=== PATIENT | female | born 1935 | race Caucasian/White ===

== ENCOUNTER 2017-03-10 00:32 | Observation (INO) | payer OTHER ==
[2017-03-10] VITALS (11 sets, daily range): BP systolic 126–195; BP diastolic 61–92; PULSE 67–98; RESP 16–20; TEMP 97.5–98.2; O2SAT 97–100
[~2017-03-10] VITALS: Ht 167.6 cm; Wt 81.8 kg
[~2017-03-10 00:32] MED LIST: BENA20TA PO; HYDR-2768 PO; LEVO75TA3 PO; MELA1CAP PO; TIMO0.5S29 EACH EYE; VITA200017 PO
--- NOTE | 2017-03-10 00:55 | PD ---
HPI Chief Complaint: Altered Mental Status Time Seen by Provider: 00:41 Travel History International Travel<30 days: No Contact w/Intl Traveler<30days: No Traveled to known affect area: No History of Present Illness HPI This is an 82-year-old female who presents to the emergency department having been brought in by police because she was driving on the wrong side of the road. Patient is unable to give any history. PFSH Past Medical History Arthritis: Yes Blood Disorders: No Depression: Yes Cancer: No Cardiovascular Problems: Yes ("SKIPS BEATS") Diabetes: No Endocrine: Yes Gastrointestinal Disorders: Yes (BURNING TONGUE, LUMPS ON TONGUE) Genitourinary: Yes (INCONTINENCE) Headaches: Yes Hepatitis: No Hiatal Hernia: No Hypertension: Yes Immune Disorder: No Musculoskeletal: Yes (ARTHRITIS) Neurologic: Yes (HEADACHES) Psychiatric: Yes (SOME DEMENTIA) Reproductive: No Respiratory: No Thyroid Disease: Yes Tetanus Vaccination: Unknown ?: Not Menopausal: Yes Past Surgical History AICD: No Appendectomy: Yes Ear Surgery: No Eye Surgery: Yes (LEFT CATARACT EXTRACT.) Genitourinary Surgery: Yes (BLADDER SUSP.) Gynecologic Surgery: Yes (HYSTERECTOMY) Hysterectomy: Yes Joint Replacement: Yes (RIGHT KNEE) Pacemaker: No Tonsillectomy: Yes Other Surgery: Yes Social History Alcohol Use: No Tobacco Use: No Substance Use: No Allergies-Medications (Allergen,Severity, Reaction): Coded Allergies: No Known Allergies (Verified , 10/30/13) Reported Meds & Prescriptions Reported Meds & Active Scripts Active Reported Melatonin 1 Mg Cap 1 Mg PO HS Vitamin D3 (Cholecalciferol) 2,000 Unit Cap 2,000 Unit PO DAILY Timolol Maleate 0.5 % Cris 1 Drop EACH EYE DAILY Hctz (Hydrochlorothiazide) 25 Mg Tab 25 Mg PO DAILY Benazepril Hcl (Benazepril HCl) 20 Mg Tab 20 Mg PO DAILY Levothyroxine Sodium (Generic) (Levothyroxine Sodium) 75 Mcg Tab 75 Mcg PO DAILY Review of Systems ROS Limitations: Poor Historian Physical Exam Narrative GENERAL: Disheveled. SKIN: Focused skin assessment warm and dry. HEAD: Atraumatic. Normocephalic. EYES: Pupils equal and round. No injection or drainage. ENT: Dry mucous membranes. NECK: Trachea midline. CARDIOVASCULAR: Regular rate and rhythm. No murmur appreciated. RESPIRATORY: Clear to auscultation. Breath sounds equal bilaterally. GASTROINTESTINAL: Abdomen soft, non-tender, nondistended. MUSCULOSKELETAL: No obvious deformities. NEUROLOGICAL: Oriented to person but not place or time. Expressive aphasia. No obvious cranial nerve deficits. No upper or lower extremity drift. No upper extremity ataxia. PSYCHIATRIC: Poor insight and judgment. Data Data Last Documented VS Vital Signs Date Time Temp Pulse Resp B/P Pulse Ox O2 Delivery O2 Flow Rate FiO2 03/10/17 00:38 98.0 67 16 171/81 Orders Electrocardiogram (03/10/17 00:53) Complete Blood Count With Diff (03/10/17 00:53) Comprehensive Metabolic Panel (03/10/17 00:53) Troponin I (03/10/17 00:53) Urinalysis - C+S If Indicated (03/10/17 00:53) Ct Brain W/O Iv Contrast(Rout) (03/10/17 00:53) Blood Glucose (03/10/17 00:53) Ecg Monitoring (03/10/17 00:53) Iv Access Insert/Monitor (03/10/17 00:53) Oximetry (03/10/17 00:53) Sodium Chloride 0.9% Flush (Ns Flush) (03/10/17 01:00) Drug Screen, Random Urine (03/10/17 00:53) Alcohol (Ethanol) (03/10/17 00:53) Cath For Specimen (03/10/17 00:53) Sodium Chlor 0.9% 1000 Ml Inj (Ns 1000 M (03/10/17 01:00) Urine Culture (03/10/17 00:52) Ceftriaxone Inj (Rocephin Inj) (03/10/17 02:00) Admit Order (Ed Use Only) (03/10/17 02:52) Labs Laboratory Tests Test 03/10/17 03/10/17 00:52 00:58 Urine Color YELLOW Urine Turbidity HAZY Urine pH 6.0 Urine Specific [place] 1.031 Urine Protein 30 mg/dL Urine Glucose (UA) NEG mg/dL Urine Ketones NEG mg/dL Urine Occult Blood TRACE Urine Nitrite POS Urine Bilirubin NEG Urine Urobilinogen 2.0 MG/DL Urine Leukocyte Esterase LARGE Urine RBC 5 /hpf Urine WBC 21 /hpf Urine Bacteria MANY /hpf Urine Hyaline Casts 1 /lpf Urine Mucus FEW /lpf Urine Yeast (Budding) RARE Microscopic Urinalysis Comment CATH-CULTURE IND White Blood Count 7.8 TH/MM3 Red Blood Count 4.50 MIL/MM3 Hemoglobin 12.9 GM/DL Hematocrit 39.2 % Mean Corpuscular Volume 87.1 FL Mean Corpuscular Hemoglobin 28.8 PG Mean Corpuscular Hemoglobin 33.0 % Concent Red Cell Distribution Width 14.8 % Platelet Count 217 TH/MM3 Mean Platelet Volume 9.9 FL Neutrophils (%) (Auto) 62.1 % Lymphocytes (%) (Auto) 23.8 % Monocytes (%) (Auto) 9.4 % Eosinophils (%) (Auto) 4.6 % Basophils (%) (Auto) 0.1 % Neutrophils # (Auto) 4.8 TH/MM3 Lymphocytes # (Auto) 1.8 TH/MM3 Monocytes # (Auto) 0.7 TH/MM3 Eosinophils # (Auto) 0.4 TH/MM3 Basophils # (Auto) 0.0 TH/MM3 CBC Comment DIFF FINAL Differential Comment Sodium Level 142 MEQ/L Potassium Level 4.0 MEQ/L Chloride Level 113 MEQ/L Carbon Dioxide Level 20.7 MEQ/L Anion Gap 8 MEQ/L Blood Urea Nitrogen 23 MG/DL Creatinine 0.89 MG/DL Estimat Glomerular Filtration 61 ML/MIN Rate Random Glucose 95 MG/DL Calcium Level 8.4 MG/DL Total Bilirubin 0.3 MG/DL Aspartate Amino Transf 26 U/L (AST/SGOT) Alanine Aminotransferase 14 U/L (ALT/SGPT) Alkaline Phosphatase 103 U/L Troponin I LESS THAN 0.02 NG/ML Total Protein 7.2 GM/DL Albumin 3.1 GM/DL Ethyl Alcohol Level LESS THAN 3 MG/DL MDM Medical Decision Making Medical Screen Exam Complete: Yes Emergency Medical Condition: Yes Interpretation(s) Afebrile, no tachycardia, hypertensive No leukocytosis Electrolytes are reassuring Troponin is normal Urinalysis demonstrates infection Alcohol is negative Last [address] 03/10/17 0053 Signed Impressions: Service Date/Time: Friday, March 10, 2017 01:59 - CONCLUSION: 1. Atrophy and chronic appearing white matter disease. Primo Mclaughlin MD Differential Diagnosis Ischemic stroke, hemorrhagic stroke, tumor, dementia, urinary tract infection Narrative Course This is an 82-year-old female is brought in by police because she was driving on the wrong side of the road. History is very limited and the patient is unable to tell much about her self. On exam she has some expressive aphasia. Labs are obtained which are reassuring. CT of the head was negative for acute process. Urinalysis demonstrates urinary tract infection. Patient was placed on ceftriaxone and will be observed in the setting of altered mental status. Diagnosis Primary Impression: Urinary tract infection Qualified Code: N30.00 - Acute cystitis without hematuria Admitting Information Admitting Physician Requests: Observation Nikki Sheikh MD Mar 10, 2017 00:55
[2017-03-10] MEDS ORDERED: SODIUM CHLORIDE 0.9% FLUSH 5 ML FLUSH IV FLUSH PRN (01:00)
[2017-03-10] MEDS ORDERED: SODIUM CHLOR 0.9% 1000 ML INJ 1,000 ML IV SCH (01:00)
[2017-03-10 01:20] LABS: AUTOMATED NEUTROPHIL # 4.8 TH/MM3 (1.8-7.7); BASOPHIL % 0.1 % (0.0-2.0); EOSINOPHIL # 0.4 TH/MM3 (0-0.4); EOSINOPHIL % 4.6 % (0.0-4.0); HEMATOCRIT 39.2 % (35.0-46.0); HEMO FLAGS DIFF FINAL; LYMPH % 23.8 % (9.0-44.0); LYMPHOCYTE # 1.8 TH/MM3 (1.0-4.8); MEAN CELL VOLUME 87.1 FL (80.0-100.0); MEAN CORPUSCULAR HEMOGLOBIN 28.8 PG (27.0-34.0); MONO % 9.4 % (0.0-8.0); NEUT % 62.1 % (16.0-70.0); PLATELET COUNT 217 TH/MM3 (150-450); RED CELL DISTRIBUTION WIDTH 14.8 % (11.6-17.2); WHITE BLOOD COUNT 7.8 TH/MM3 (4.0-11.0)
[2017-03-10 01:26] LABS: BACTERIA, URINE MANY /hpf; BLOOD, URINE TRACE (NEG); GLUCOSE,URINE NEG (NEG); HYALINE CAST, URINE 1 /lpf (RARE); KETONE, URINE NEG (NEG); MUCUS URINE FEW /lpf (OCC); URINE COLOR YELLOW (YELLW/STRAW)
[2017-03-10 01:30] LABS: COMMENT (UR) CATH-CULTURE IND; CULTURE IF INDICATED CATH CULTURE IND; NITRITE,URINE POS (NEG)
[2017-03-10 01:36] LABS: ALKALINE PHOSPHATASE 103 U/L (45-117); TOTAL BILIRUBIN ADULT 0.3 MG/DL (0.2-1.0)
[2017-03-10 01:39] LABS: ALT (GPT) 14 U/L (10-53); ANION GAP 8 MEQ/L (5-15); AST (GOT) 26 U/L (15-37); BICARBONATE 20.7 MEQ/L (21.0-32.0); BLOOD UREA NITROGEN 23 MG/DL (7-18); CHLORIDE 113 MEQ/L (98-107); GLOMERULAR FILTRATION RATE 61 ML/MIN (>89); SODIUM (NA) 142 MEQ/L (136-145)
[2017-03-10] MEDS ORDERED: cefTRIAXone INJ 1,000 MG in SODIUM CHLORIDE 0.9% INJ 100 ML IV ONE (02:00)
--- NOTE | 2017-03-10 02:16 | RADRPT ---
EXAM DATE/TIME: 03/10/2017 01:59 [facility] COMPARISON: No previous studies available for comparison. INDICATIONS : Altered mental status. RADIATION DOSE: 56.35 CTDIvol (mGy) MEDICAL HISTORY : Hypertension. SURGICAL HISTORY : None. ENCOUNTER: Initial ACUITY: 1 day PAIN SCALE: 0/10 LOCATION: cranial TECHNIQUE: Multiple contiguous axial images were obtained of the head. Using automated exposure control and adj ustment of the mA and/or kV according to patient size, radiation dose was kept as low as reasonably a chievable to obtain optimal diagnostic quality images. DICOM format image data is available electro nically for review and comparison. FINDINGS: Moderate atrophy is identified and patchy periventricular white matter disease is noted most likely o n the basis of chronic microvascular ischemic disease. There is no evidence of intracranial hemorrhag e, acute infarct, or mass. No fractures are seen. CONCLUSION: 1. Atrophy and chronic appearing white matter disease. Primo Mclaughlin MD on March 10, 2017 at 2:14 Board Certified Radiologist. This report was verified electronically.
[2017-03-10] MEDS ORDERED: NALOXONE HCL 0.4 MG/ML AMP IV PRN (03:15)
[2017-03-10] MEDS ORDERED: SODIUM CHLORIDE 0.9% FLUSH 10 ML FLUSH IV FLUSH PRN (03:15)
--- NOTE | 2017-03-10 03:30 | HHI.HP ---
[facility] Service [facility] Primary Care Physician Non-Staff Admission Diagnosis altered mental status, urinary tract infection Diagnoses: Travel History International Travel<30 Days: No Contact w/Intl Traveler <30 Da: No Traveled to Known Affected Are: No History of Present Illness History from patient, ER physician, medication, and fifth medical records. Patient is extremely poor historian. She does have significant expressive aphasia. She is really unable to tell me why she is here. However when asked whether she had a fall, she stated yes. When asked what time or date that happens, she really does not know. She was initially seen 5 days ago. Later changed to 1 or 2 days ago. When asked about her birthday, she is not able to recall her date. She is not able to recall the city she is living in. She cannot tell the name of her doctor or her daughter. Review of Systems ROS Limitations: Speech Impaired, Poor Historian (not able to obtain ROS properly at all, expressive aphasia and some memory impairment) Past Family Social History Past Medical History Hypothyroidism Hyperlipidemia Past Surgical History larygoscopy biopsy of lesion of tongue- 2013 Hysterectomy Carpal tunnel surgeryon the left Allergies: Coded Allergies: No Known Allergies (Verified , 10/30/13) Family History father- alcoholic, at age 32 of heart problem Social History used to smoke, quit since 1991 Physical Exam Vital Signs Vital Signs Date Time Temp Pulse Resp B/P Pulse Ox O2 Delivery O2 Flow Rate FiO2 03/10/17 03:08 69 16 148/77 100 03/10/17 00:38 98.0 67 16 171/81 Physical Exam GENERAL: This is a well-nourished, well-developed patient, in no apparent distress. SKIN: No rashes, ecchymoses or lesions. Cool and dry. HEAD: Atraumatic. Normocephalic. No temporal or scalp tenderness. EYES:No scleral icterus. No injection or drainage. ENT: Nose without bleeding, purulent drainage or septal hematoma. Airway patent. NECK: Trachea midline. No JVD . Supple, nontender, no meningeal signs. CARDIOVASCULAR: Regular rate and rhythm without murmurs, gallops, or rubs. RESPIRATORY: Clear to auscultation. Breath sounds equal bilaterally. No wheezes , rales, or rhonchi. GASTROINTESTINAL: Abdomen soft, non-tender, nondistended. No guarding. MUSCULOSKELETAL: Extremities without clubbing, cyanosis. No joint tenderness, effusion No calf tenderness. bilateral LE mild pitting edema around the ankles NEUROLOGICAL: Awake and alert. Motor and sensory grossly within normal limits. Five out of 5 muscle strength in all muscle groups. expressive aphasia Laboratory Laboratory Tests Test 03/10/17 03/10/17 00:52 00:58 Urine Color YELLOW Urine Turbidity HAZY Urine pH 6.0 Urine Specific [place] 1.031 Urine Protein 30 Urine Glucose (UA) NEG Urine Ketones NEG Urine Occult Blood TRACE Urine Nitrite POS Urine Bilirubin NEG Urine Urobilinogen 2.0 Urine Leukocyte Esterase LARGE Urine RBC 5 Urine WBC 21 Urine Bacteria MANY Urine Hyaline Casts 1 Urine Mucus FEW Urine Yeast (Budding) RARE Microscopic Urinalysis Comment CATH-CULTURE IND White Blood Count 7.8 Red Blood Count 4.50 Hemoglobin 12.9 Hematocrit 39.2 Mean Corpuscular Volume 87.1 Mean Corpuscular Hemoglobin 28.8 Mean Corpuscular Hemoglobin 33.0 Concent Red Cell Distribution Width 14.8 Platelet Count 217 Mean Platelet Volume 9.9 Neutrophils (%) (Auto) 62.1 Lymphocytes (%) (Auto) 23.8 Monocytes (%) (Auto) 9.4 Eosinophils (%) (Auto) 4.6 Basophils (%) (Auto) 0.1 Neutrophils # (Auto) 4.8 Lymphocytes # (Auto) 1.8 Monocytes # (Auto) 0.7 Eosinophils # (Auto) 0.4 Basophils # (Auto) 0.0 CBC Comment DIFF FINAL Differential Comment Sodium Level 142 Potassium Level 4.0 Chloride Level 113 Carbon Dioxide Level 20.7 Anion Gap 8 Blood Urea Nitrogen 23 Creatinine 0.89 Estimat Glomerular Filtration 61 Rate Random Glucose 95 Calcium Level 8.4 Total Bilirubin 0.3 Aspartate Amino Transf 26 (AST/SGOT) Alanine Aminotransferase 14 (ALT/SGPT) Alkaline Phosphatase 103 Troponin I LESS THAN 0.02 Total Protein 7.2 Albumin 3.1 Ethyl Alcohol Level LESS THAN 3 Date/Time Procedure Status Source Growth 03/10/17 00:52 Urine Culture Received Urine Catheterized Urine Pending Result Diagram: 03/10/175703/10/17 005 Imaging Last [address] 03/10/17 0053 Signed Impressions: Service Date/Time: Friday, March 10, 2017 01:59 - CONCLUSION: 1. Atrophy and chronic appearing white matter disease. Primo Mclaughlin MD Assessment and Plan Assessment and Plan Impression: Expressive aphasia Likely CVA UTI Plan: Neurochecks every 4 hours. Permissive hypertension. We'll proceed with CVA workup. Neurology consult. Speech and swallow evaluation. Physical therapy consult. Obtains echocardiograms/carotids sono. MRI/MRA of the brain. We'll also needs to contact patient's daughter to give full history. Resume Rocephin for UTI. DVT prophylaxiswith Lovenox. Discussed Condition With Patient, ER physician, nursing staff Reji Sam MD Mar 10, 2017 03:29
[2017-03-10] MEDS ORDERED: FLUCONAZOLE 100 MG TAB PO ONE (07:15)
[2017-03-10] MEDS ORDERED: PILL SPLITTER OTHER PRN (07:30)
[2017-03-10] MEDS: SODIUM CHLORIDE 0.9% FLUSH 10 ML FLUSH IV FLUSH SCH ×2 (07:50→21:48)
[2017-03-10] MEDS ORDERED: ACETAMINOPHEN 325 MG TAB PO PRN (08:15)
--- NOTE | 2017-03-10 08:15 | HHI.PR ---
Subjective Remarks Follow-up for altered mental status. Awake and alert. Follows commands. The patient does not know the month, year, her birthday. She does know that she is in the hospital. She provides short answers, but speech seems clear. She does not recall how she presented to the hospital. When asked if she has any pain she says in her knees. She does appear to have a soft knee brace on. She doesn 't really participate with lower extremity strength testing due to pain in her knee. She denies any dysuria. She denies any fevers. She denies having any stroke before. Discussed with RN, we have been unable to get in contact with the patient's next of kin listed in the chart. Objective Vitals Vital Signs Date Time Temp Pulse Resp B/P Pulse Ox O2 Delivery O2 Flow Rate FiO2 03/10/17 06:06 97.8 74 18 179/90 97 03/10/17 04:12 97.9 85 16 148/77 99 03/10/17 03:08 69 16 148/77 100 03/10/17 00:38 98.0 67 16 171/81 Result Diagram: 03/10/17 0058 03/10/17 0058 Imaging Last Impressions Head CT 03/10/17 0053 Signed Impressions: Service Date/Time: Friday, March 10, 2017 01:59 - CONCLUSION: 1. Atrophy and chronic appearing white matter disease. Primo Mclaughlin MD Objective Remarks GENERAL: Well-developed well-nourished. In no acute distress. Oriented to place and her name, but not to time or her birthday. SKIN: Warm and dry. No lesions noted. HEENT: Normocephalic. Pupils equal and round. Mucous membranes pink and moist. CARDIOVASCULAR: Regular rate and rhythm. No murmur appreciated. RESPIRATORY: No accessory muscle use. Clear to auscultation. Breath sounds equal bilaterally. GASTROINTESTINAL: Abdomen soft, non-tender, nondistended. Bowel sounds x4. MUSCULOSKELETAL: Flex the bilateral knees with soft knee brace on the right. No clubbing or cyanosis. No edema. NEUROLOGICAL: Awake and alert. Follows commands. No facial asymmetry. Moves upper and lower extremities spontaneously. Normal speech. Strength 5/5 in upper extremities. PSYCHIATRIC: Confused mood and affect; insight and judgment limited. A/P Assessment and Plan 82-year-old female who was brought in for altered mental status when found to be driving on the wrong side of the road by police Acute encephalopathy: Suspect metabolic. UTI and stroke are in the differential. Reviewed: UA with evidence of UTI. Head CT with atrophy and chronic-appearing white matter disease, nothing acute. Afebrile with no leukocytosis. -Neurology consulted -PT/ST -CVA workup with brain MRI/MRA, carotid ultrasound, echocardiogram -Monitor on telemetry -Neuro checks -Check TSH -Check UDS UTI: Bacterial versus fungal. Continue on empiric Rocephin. Fluconazole 1. Follow-up urine culture. Possible new onset atrial fibrillation: EKG at admission shows possible atrial fibrillation versus PACs. Telemetry is vague and shows no definite tachyarrhythmia. History is unclear. -Repeat EKG. -Discussed with neurology, may need anticoagulation. Reconcile and resume home medications. DVT prophylaxis: SCDs Discharge Planning Disposition pending clinical course. Juan Pablo Boudreaux Mar 10, 2017 08:15
[2017-03-10 08:22] LABS: AMPHETAMINE, URINE NEG (NEG); BARBITURATES, URINE NEG (NEG); COCAINE, URINE NEG (NEG)
[2017-03-10] MEDS ORDERED: ASPIRIN EC 325 MG TABEC PO SCH (10:15)
--- NOTE | 2017-03-10 10:43 | MB ---
cc: YOU CONNOLLY M.D. DATE OF CONSULTATION 03/10/2017 REASON FOR CONSULTATION This is an 82 year-old right-handed woman I am asked to see for a neurological evaluation. She is not a very good historian. She was brought in by the police because she was driving on the wrong side of the road, unable to give a good history. There is some history of dementia. MEDICATIONS AT HOME 1. Melatonin 2. Vitamin D 3. Timolol 4. Hydrochlorothiazide 5. Benazepril 6. Thyroid ALLERGIES NO KNOWN DRUG ALLERGIES. REVIEW OF SYSTEMS She has been complaining of some bilateral lower extremity pain. PAST MEDICAL HISTORY 1. Hypothyroidism 2. Hyperlipidemia 3. Biopsied of the tongue 2013. FAMILY HISTORY Father was an alcoholic and had heart problems. SOCIAL HISTORY He used to smoke, quit in 1991. She is not a drinker. She can not tell me who she lives with. PHYSICAL EXAM On exam, nurse tells me she has a possible a. Flutter on the telemetry, but no strips on the chart, afebrile, 68, 29, 183/79. NECK: There are no carotid bruits. HEART: Regular rhythm. I did not detect a murmur. NEUROLOGIC: Pupils are equal. Visual arce are full. Extraocular movements intact without nystagmus. Face is symmetric. Tongue was midline. No drift. Normal strength in the upper and lower extremities bilaterally. Toes are downgoing bilaterally. Pinprick was intact throughout as was vibratory sense. She is not ataxic. Gait is a little bit unsteady. Her legs hurt her She cannot name my glasses. She cannot tell me who she lives with. She follows commands fairly well. Speech was fluent overall. LABORATORY DATA CBC is normal. Urine drug screen was negative. UA 21 white cells, large amount of leukoesterase. Basic metabolic profile is essentially normal. LFTs normal. CT scan of the brain was read as negative. Review of the films, diffuse atrophy is noted. IMPRESSION It is unclear if she could have had a stroke or has dementia. PLAN We will check an MRI of the brain and if she has any flutter, she can be anticoagulated. Check an EEG and some other blood work. We should treat her UTI. She does have some pain in the legs that can be looked into later. MD GLORY Puente/[place] /10:13 AM /10:32 AM
[2017-03-10] MEDS ORDERED: LORazepam 1 MG TAB PO ONE (11:45)
[2017-03-10] MEDS ORDERED: HALOPERIDOL LACTATE 5 MG/ML AMP IM ONE (12:15)
--- NOTE | 2017-03-10 14:13 | RADRPT ---
EXAM DATE/TIME: 03/10/2017 13:47 [facility] COMPARISON: No previous studies available for comparison. INDICATIONS : MRI clearance. MEDICAL HISTORY : None. SURGICAL HISTORY : None. ENCOUNTER: Initial ACUITY: 1 day PAIN SCORE: 0/10 LOCATION: Bilateral chest FINDINGS: The lungs are clear without infiltrate, nodule, or mass. There is no appreciable pleural effusion fo r technique. Heart and mediastinum are unremarkable. Chronic degenerative changes are present in jo-ann ateral shoulders and not changed. CONCLUSION: No acute cardiopulmonary disease. Jessica Huang MD on March 10, 2017 at 14:11 Board Certified Radiologist. This report was verified electronically.
--- NOTE | 2017-03-10 15:46 | RADRPT ---
EXAM DATE/TIME: 03/10/2017 14:52 [facility] COMPARISON: No previous studies available for comparison. INDICATIONS : Cerebrovascular accident. MEDICAL HISTORY : Hypertension. Glaucoma. SURGICAL HISTORY : Tonsillectomy. Hysterectomy. Appendectomy. Right knee arthroscopy. Bladder suspension. ENCOUNTER: Initial ACUITY: 1 day PAIN SCORE: Nonresponsive. LOCATION: Bilateral neck PEAK SYSTOLIC VELOCITIES (cm/sec): ICA/CCA RATIO: Right: 1.9 Left: 1.1 ICA: Right: 114 Left: 81 CCA: Right: 61 Left: 70 ECA: Right: 34 Left: 39 VERTEBRAL: Right: 54 antegrade Left: 44 antegrade Elevated flow velocities and ICA/CCA ratios have been found to correlate with increased degrees of vessel stenosis, calculated as percentage of diameter relative to a normal segment of distal ICA/CCA FINDINGS: Antegrade flow is seen in both vertebral arteries. There is minimal atherosclerotic plaquing at the o rigin of both ICAs without any significant stenosis. CONCLUSION: No evidence for hemodynamically significant stenosis. Jessica Huang MD on March 10, 2017 at 15:44 Board Certified Radiologist. This report was verified electronically.
--- NOTE | 2017-03-10 17:23 | RADRPT ---
EXAM DATE/TIME: 03/10/2017 16:30 [facility] COMPARISON: MRI BRAIN W/O CONTRAST, March 10, 2017, 16:30. INDICATIONS : CVA. MEDICAL HISTORY : Arthritis. SURGICAL HISTORY : Hysterectomy. Cataracts. Right knee. ENCOUNTER: Subsequent ACUITY: 1 day PAIN SCORE: 0/10 LOCATION: Please note a normal MRA of the brain does not entirely exclude the possibility of a small aneurysm, nor the possibility of distal intracranial vessel disease. TECHNIQUE: 3D time of flight MRA was performed. Source images, multiplanar STS MIP, and 3D volume MIP reconstru ctions were reviewed. FINDINGS: No significant vascular malformations, vessel truncation or aneurysmal dilatations are seen except fo r slight atherosclerotic changes involving multiple branches bilaterally mainly the MCAs. CONCLUSION: Slight atherosclerotic changes of distal branches bilaterally, otherwise unremarkable . Jessica Huang MD on March 10, 2017 at 17:19 Board Certified Radiologist. This report was verified electronically.
--- NOTE | 2017-03-10 17:26 | RADRPT ---
EXAM DATE/TIME: 03/10/2017 16:30 [facility] COMPARISON: CT BRAIN W/O CONTRAST, March 10, 2017, 1:59. INDICATIONS : CVA. MEDICAL HISTORY : Arthritis. SURGICAL HISTORY : Hysterectomy. Cataracts. Right knee. ENCOUNTER: Subsequent ACUITY: 1 day PAIN SCORE: 0/10 LOCATION: TECHNIQUE: Multiplanar, multisequence MRI of the brain was performed without contrast. FINDINGS: CEREBRUM: Atrophy. Small focal area of encephalomalacia involving the right parietal lobe. The ventricles are n ormal for age. No evidence of midline shift, mass lesion, hemorrhage or acute infarction. No extraa xial fluid collections are seen. The pituitary gland and suprasellar cistern are normal in configura tion. WHITE MATTER: Periventricular high flair signal involving both cerebral hemispheres. POSTERIOR FOSSA: The cerebellum and brainstem are intact. The 4th ventricle is midline. The cerebellopontine angle is unremarkable. The cerebellar tonsils are normal in position. DIFFUSION IMAGING: No focal areas of restricted diffusion are seen. No evidence of acute infarction. EXTRACRANIAL: The visualized portions of the orbits and paranasal sinuses are unremarkable. CONCLUSION: 1. No acute intracranial abnormality. 2. Chronic small vessel ischemic change. 3. Small area of encephalomalacia involving the right parietal lobe. Rivera Corcoran Jr., MD on March 10, 2017 at 17:21 Board Certified Radiologist. This report was verified electronically.
[2017-03-10 20:42] LABS: FREE T4 0.93 NG/DL (0.76-1.46); HDL CHOLESTEROL 75.5 MG/DL (40.0-60.0); LDL CHOLESTEROL 88 MG/DL (0-99)
[2017-03-10 20:44] LABS: CREATINE KINASE 143 U/L (26-192)
[2017-03-10 21:36] LABS: RHEUMATOID FACTOR TRIGGER LESS THAN 10.0 IU/ML (0.0-14.9)
[2017-03-10] MEDS: APIXABAN 5 MG TABLET PO SCH (21:48)
[2017-03-11] VITALS (10 sets, daily range): BP systolic 154–194; BP diastolic 78–97; PULSE 68–100; RESP 16–18; TEMP 96.4–98.1; O2SAT 97–99
[2017-03-11] MEDS: cefTRIAXone INJ 1,000 MG in SODIUM CHLORIDE 0.9% INJ 100 ML IV SCH (01:38)
[2017-03-11 08:10] LABS: AUTOMATED NEUTROPHIL # 4.1 TH/MM3 (1.8-7.7); BASOPHIL % 0.8 % (0.0-2.0); EOSINOPHIL # 0.2 TH/MM3 (0-0.4); EOSINOPHIL % 3.9 % (0.0-4.0); HEMATOCRIT 44.2 % (35.0-46.0); HEMO FLAGS DIFF FINAL; LYMPH % 20.8 % (9.0-44.0); LYMPHOCYTE # 1.3 TH/MM3 (1.0-4.8); MEAN CELL VOLUME 86.3 FL (80.0-100.0); MEAN CORPUSCULAR HGB CONC 33.6 % (32.0-36.0); MONO % 9.2 % (0.0-8.0); NEUT % 65.3 % (16.0-70.0); PLATELET COUNT 199 TH/MM3 (150-450); RED BLOOD COUNT 5.12 MIL/MM3 (4.00-5.30); RED CELL DISTRIBUTION WIDTH 14.8 % (11.6-17.2); WHITE BLOOD COUNT 6.2 TH/MM3 (4.0-11.0)
[2017-03-11] MEDS: APIXABAN 5 MG TABLET PO SCH ×2 (08:19→21:30)
[2017-03-11] MEDS: SODIUM CHLORIDE 0.9% FLUSH 10 ML FLUSH IV FLUSH SCH ×2 (08:19→21:30)
[2017-03-11 08:27] LABS: BICARBONATE 25.8 MEQ/L (21.0-32.0); POTASSIUM 3.4 MEQ/L (3.5-5.1)
[2017-03-11] MEDS ORDERED: POTASSIUM CHLORIDE 10 MEQ CONTROLLED RELEASE TAB PO ONE (08:45)
--- NOTE | 2017-03-11 09:36 | HHI.PR ---
Subjective Remarks afib Objective Vital Signs Date Time Temp Pulse Resp B/P Pulse Ox O2 Delivery O2 Flow Rate FiO2 03/11/17 07:30 97.4 68 18 194/97 99 03/11/17 07:01 84 03/11/17 04:18 98.1 93 18 170/84 97 03/11/17 04:04 82 03/11/17 00:15 92 03/10/17 23:35 98 03/10/17 23:24 98.0 77 17 126/61 97 03/10/17 20:00 98.2 76 18 137/79 97 03/10/17 18:36 76 03/10/17 16:13 97.5 83 19 195/92 98 I/O 03/10/17 03/10/17 03/10/17 03/11/17 03/11/17 03/11/17 07:00 15:00 23:00 07:00 15:00 23:00 Intake Total 580 ml Balance 580 ml Intake Oral 480 ml IV Total 100 ml # Voids 5 5 # Bowel Movements 1 1 Result Diagram: 03/11/17 0700 03/11/17 0700 Objective Remarks some bp up knows [place] not town moves all r knee tender Assessment and Plan Assessment and Plan imp mri 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 Rogerio Crow MD Mar 11, 2017 09:36
[2017-03-11] MEDS ORDERED: cloNIDine HCL 0.1 MG TAB PO PRN (10:00)
--- NOTE | 2017-03-11 10:04 | HHI.PR ---
Subjective Remarks Follow-up for altered mental status. The patient has some pain in her right knee, but states that it has been there for a while. She has no other acute complaints at this time. She is awake and alert, but is a poor historian. She is not able to tell me about any of her medical conditions, any of her home medications, who her PCP is, what city she lives in, who she lives with. She was agitated yesterday and tried to leave the hospital, and had to be placed in restraints. Discussed with RN, patient much more calm overnight and today and has been taken out of restraints. Objective Vitals Vital Signs Date Time Temp Pulse Resp B/P Pulse Ox O2 Delivery O2 Flow Rate FiO2 03/11/17 07:30 97.4 68 18 194/97 99 03/11/17 07:01 84 03/11/17 04:18 98.1 93 18 170/84 97 03/11/17 04:04 82 03/11/17 00:15 92 03/10/17 23:35 98 03/10/17 23:24 98.0 77 17 126/61 97 03/10/17 20:00 98.2 76 18 137/79 97 03/10/17 18:36 76 03/10/17 16:13 97.5 83 19 195/92 98 I/O 03/10/17 03/10/17 03/10/17 03/11/17 03/11/17 03/11/17 07:00 15:00 23:00 07:00 15:00 23:00 Intake Total 580 ml Balance 580 ml Intake Oral 480 ml IV Total 100 ml # Voids 5 5 # Bowel Movements 1 1 Result Diagram: 03/11/17 0700 03/11/17 0700 Imaging Last Impressions Brain MRI 03/10/17 1058 Signed Impressions: Service Date/Time: Friday, March 10, 2017 16:30 - CONCLUSION: 1. No acute intracranial abnormality. 2. Chronic small vessel ischemic change. 3. Small area of encephalomalacia involving the right parietal lobe. Rivera Corcoran Jr., MD Head CT 03/10/17 0053 Signed Impressions: Service Date/Time: Friday, March 10, 2017 01:59 - CONCLUSION: 1. Atrophy and chronic appearing white matter disease. Primo Mclaughlin MD Head Magnetic Resonance Angiography 03/10/17 0000 Signed Impressions: Service Date/Time: Friday, March 10, 2017 16:30 - CONCLUSION: Slight atherosclerotic changes of distal branches bilaterally, otherwise unremarkable. Jessica Huang MD Chest X-Ray 03/10/17 0000 Signed Impressions: Service Date/Time: Friday, March 10, 2017 13:47 - CONCLUSION: No acute cardiopulmonary disease. Jessica Huang MD Carotid Artery Ultrasound 03/10/17 0000 Signed Impressions: Service Date/Time: Friday, March 10, 2017 14:52 - CONCLUSION: No evidence for hemodynamically significant stenosis. Jessica Huang MD Objective Remarks GENERAL: Well-developed well-nourished. In no acute distress. Disoriented. SKIN: Warm and dry. No lesions noted. HEENT: Normocephalic. Pupils equal and round. Mucous membranes pink and moist. CARDIOVASCULAR: Regular rate and rhythm. No murmur appreciated. RESPIRATORY: No accessory muscle use. Clear to auscultation. Breath sounds equal bilaterally. GASTROINTESTINAL: Abdomen soft, non-tender, nondistended. Bowel sounds x4. MUSCULOSKELETAL: Trace pretibial edema on the right, none on the left. Painful ROM right knee. No clubbing or cyanosis. NEUROLOGICAL: Awake and alert. Follows commands. Moves upper and lower extremities spontaneously. Normal speech. PSYCHIATRIC: Pleasantly confused mood and affect; insight and judgment limited. A/P Assessment and Plan 82-year-old female who was brought in for altered mental status when found to be driving on the wrong side of the road by police Acute metabolic encephalopathy: Possibly due to underlying dementia with acute infection. Reviewed: UA with evidence of UTI. Afebrile with no leukocytosis. Brain MRI with chronic changes, encephalomalacia, no acute process. Head MRA with slight atherosclerotic changes. Carotid ultrasound with no significant stenosis. UDS negative. -Neurology consulted, appreciate input -PT/ST -Check EEG and echocardiogram -Monitor on telemetry -Neuro checks UTI: Bacterial versus fungal. Continue on empiric Rocephin. Fluconazole 1. Follow-up urine culture. New onset atrial fibrillation: EKGs and telemetry show A. fib. Rate seems controlled. D/W neurology, started Eliquis. Suspect underlying dementia: Patient is pleasantly confused and disoriented. Possible underlying Alzheimer's disease per neurology, started on Namenda. Cognitive eval. Possible acute worsening with UTI. Consider starting Seroquel at night if further episodes of agitation. Hypertension: s/p permissive HTN, CVA ruled out. Start Metoprolol with A. fib. Clonidine as needed. Monitor and adjust medications as needed. Subclinical hypothyroidism: TSH is slightly elevated with normal T4. Possibly due to patient missing levothyroxine dose at home. Reconcile and resume home levothyroxine dose. Repeat Labs in 4-6 Weeks. Right knee pain: Likely chronic as patient presented with soft knee brace. Checking x-ray. Reconcile and resume home medications. DVT prophylaxis: SCDs Discharge Planning Follow-up EEG and urine culture. Will likely need placement for safety, case management consulted. Juan Pablo Boudreaux Mar 11, 2017 10:04
--- NOTE | 2017-03-11 10:51 | RADRPT ---
EXAM DATE/TIME: 03/11/2017 10:22 [facility] COMPARISON: No previous studies available for comparison. INDICATIONS : Right knee pain with no known injury MEDICAL HISTORY : None. SURGICAL HISTORY : Total knee replacement, right. ENCOUNTER: Initial ACUITY: 1 day PAIN SCORE: 5/10 LOCATION: Right entire knee FINDINGS: Right knee prosthesis is noted. There is soft tissue swelling along the medial aspect of the knee. Knee replacement as well as underlying bony structures are intact without evidence of fracture or dis location. CONCLUSION: Status post right knee replacement. Soft tissue swelling along the medial aspect of the knee. Intact knee replacement and bony structures. Bg Rivera MD on March 11, 2017 at 10:49 Board Certified Radiologist. This report was verified electronically.
--- NOTE | 2017-03-11 10:55 | EKG ---
Date Performed: 03/10/2017 Time Performed: 01:12:08 PTAGE: 82 years EKG: ATRIAL FIBRILLATION POSSIBLE RIGHT VENTRICULAR CONDUCTION DELAY ABNORMAL RHYTHM ECG PREVIOUS TRACING : 10/30/2013 07.29 DOCTOR: Malachi King Interpretating Date/Time 03/11/2017 10:52:23
--- NOTE | 2017-03-11 12:46 | EKG ---
Date Performed: 03/10/2017 Time Performed: 14:32:37 PTAGE: 82 years EKG: ATRIAL FIBRILLATION INCOMPLETE RIGHT BUNDLE BRANCH BLOCK MINIMAL ST DEPRESSION Compared to prior tracing no significant change ABNORMAL RHYTHM ECG NO PREVIOUS TRACING DOCTOR: Jesus Alberto Saucedo Interpretating Date/Time 03/11/2017 12:42:28
[2017-03-11] MEDS: METOPROLOL TARTRATE 25 MG TAB PO SCH ×2 (13:00→21:30)
[2017-03-11] MEDS: MEMANTINE HCL 5 MG TAB PO SCH (13:01)
[2017-03-11] MEDS ORDERED: HALOPERIDOL LACTATE 5 MG/ML AMP IM PRN (14:00)
[2017-03-11] MEDS ORDERED: QUEtiapine FUMARATE 25 MG TAB PO ONE (14:00)
--- NOTE | 2017-03-11 15:12 | ECHRPT ---
Indication: CVA/TIA CONCLUSIONS Normal left ventricular size. Wall thickness is normal. The left ventricular systolic function is normal with an estimated ejection fraction in the range of 55-60%. The left atrial size is mildly dilated. The right atrial size is mildly dilated. Trace mitral valve regurgitation. There is mild tricuspid valve regurgitation. The estimated pulmonary arterial pressure is 21 mmHg. BP: 179 / 90 HR: 74 Rhythm: Atrial fibrillation Technical Quality: FINDINGS LEFT VENTRICLE Normal left ventricular size. Wall thickness is normal. The left ventricular systolic function is normal with an estimated ejection fraction in the range of 55-60%. RIGHT VENTRICLE Normal right ventricular size and systolic function. LEFT ATRIUM The left atrial size is mildly dilated. RIGHT ATRIUM The right atrial size is mildly dilated. ATRIAL SEPTUM Normal atrial septal thickness without atrial level shunting by limited color doppler interrogation. AORTA The aortic root and proximal ascending aorta are normal in size on limited imaging. MITRAL VALVE Trace mitral valve regurgitation. AORTIC VALVE Trileaflet aortic valve. No aortic valve stenosis or regurgitation. TRICUSPID VALVE There is mild tricuspid valve regurgitation. The estimated pulmonary arterial pressure is 21 mmHg. PULMONARY VALVE The pulmonary valve is not well visualized. VESSELS The inferior vena cava is normal in size. PERICARDIUM No pericardial effusion. Jesus Alberto Saucedo MD (Electronically Signed) Final Date:11 March 2017 15:11
[2017-03-11] MEDS ORDERED: METO50TA PO (19:43)
[2017-03-11] MEDS ORDERED: SERT-129 PO (19:48)
--- NOTE | 2017-03-11 20:05 | MG ---
cc: YOU CONNOLLY M.D. Lab No: [id number] Date: Age: Sex: F Race: Hyperventilation omitted. Dementia, confusion. DESCRIPTION OF THE RECORDING: A 10 Hz 68 microvolt symmetric posterior and diffuse rhythm is seen. The recording overall is synchronous and symmetric. No epileptiform or seizure activity is noted. There is what appears to be movement artifact with some right arm movement which involved some not well seen on the bipolar montage but on the transverse montage some sharply contoured waves within some movement artifact at epoch 54 over the left posterior and mid temporal head region. It brief and the tech noted some right arm movement with that. The patient then fell asleep and reached stage II sleep and no more of that left abnormality or right arm movement is seen. No focal abnormalities were noted there. IMPRESSION: This was probably some movement artifact but there is a question that it could have been some small sharps seen on the left with the right arm movement. The tech however had written at the time that there was some muscle artifact right at that time, although there appears to be asymmetry of the background and a left temporal lobe abnormality could be considered. MD GLORY Puente/LIV /7:49 PM /8:04 PM
[2017-03-11] MEDS ORDERED: DILT0.05 PO (20:58)
[2017-03-11] MEDS: QUEtiapine FUMARATE 25 MG TAB PO SCH (21:00)
[2017-03-12] MEDS: cefTRIAXone INJ 1,000 MG in SODIUM CHLORIDE 0.9% INJ 100 ML IV SCH (02:43)
[2017-03-12 03:43] VITALS: BP 180/86; PULSE 65; RESP 17; TEMP 98.1; O2SAT 95
[2017-03-12 07:33] VITALS: BP 159/90; PULSE 86; RESP 18; TEMP 98.3; O2SAT 95
[2017-03-12 07:49] VITALS: PULSE 90
--- NOTE | 2017-03-12 08:13 | HHI.PR ---
Subjective Remarks Follow up for UTI, AMS. The patient is asleep this morning, awakens to voice. She is oriented to self only, then is able to tell me her birthday was 2 days ago, however unable to state the year of her bday or the current year. She complains of some constant right knee pain that she says she's had "for years". She denies any fevers/chills. Denies any nausea/vomiting/abdominal pain or urinary complaints. Objective Vitals Vital Signs Date Time Temp Pulse Resp B/P Pulse Ox O2 Delivery O2 Flow Rate FiO2 03/12/17 07:33 98.3 86 18 159/90 95 03/12/17 03:43 98.1 65 17 180/86 95 03/11/17 20:07 96.4 100 17 179/93 97 03/11/17 15:52 97.9 79 18 154/78 98 03/11/17 15:01 90 03/11/17 11:18 98.0 78 16 163/89 98 03/11/17 11:00 86 I/O 03/11/17 03/11/17 03/11/17 03/12/17 03/12/17 03/12/17 07:00 15:00 23:00 07:00 15:00 23:00 Intake Total 580 ml Balance 580 ml Intake Oral 480 ml IV Total 100 ml # Voids 5 # Bowel Movements 1 Result Diagram: 03/11/17 0700 03/11/17 0700 Imaging Last Impressions Knee X-Ray 03/11/17 0000 Signed Impressions: Service Date/Time: Saturday, March 11, 2017 10:22 - CONCLUSION: Status post right knee replacement. Soft tissue swelling along the medial aspect of the knee. Intact knee replacement and bony structures. Bg Rivera MD Brain MRI 03/10/17 1058 Signed Impressions: Service Date/Time: Friday, March 10, 2017 16:30 - CONCLUSION: 1. No acute intracranial abnormality. 2. Chronic small vessel ischemic change. 3. Small area of encephalomalacia involving the right parietal lobe. Rivera Corcoran Jr., MD Head CT 03/10/17 0053 Signed Impressions: Service Date/Time: Friday, March 10, 2017 01:59 - CONCLUSION: 1. Atrophy and chronic appearing white matter disease. Primo Mclaughlin MD Head Magnetic Resonance Angiography 03/10/17 0000 Signed Impressions: Service Date/Time: Friday, March 10, 2017 16:30 - CONCLUSION: Slight atherosclerotic changes of distal branches bilaterally, otherwise unremarkable. Jessica Huang MD Chest X-Ray 03/10/17 0000 Signed Impressions: Service Date/Time: Friday, March 10, 2017 13:47 - CONCLUSION: No acute cardiopulmonary disease. Jessica Huang MD Carotid Artery Ultrasound 03/10/17 0000 Signed Impressions: Service Date/Time: Friday, March 10, 2017 14:52 - CONCLUSION: No evidence for hemodynamically significant stenosis. Jessica Huang MD Objective Remarks GENERAL: Well-nourished, well-developed elderly female patient in [facility]. SKIN: Warm and dry. No rash. HEENT: Normocephalic. Atraumatic. Pupils equal and round. Mucous membranes pink and moist. NECK: Supple. Trachea midline. CARDIOVASCULAR: Regular rate and rhythm. S1, S2 noted. No murmur appreciated. RESPIRATORY: No accessory muscle use. Clear to auscultation. Breath sounds equal bilaterally. GASTROINTESTINAL: Abdomen soft, non-tender, nondistended. Normoactive bowel sounds x4. MUSCULOSKELETAL: No obvious deformities. Trace anterior tibial edema on the right, none on the left. Right knee ROM limited secondary to pain. Compression brace on right knee. NEUROLOGICAL: Awake and alert, oriented to self only. No obvious cranial nerve deficits. Motor grossly within normal limits. 5/5 muscle strength in bilateral upper and lower extremities. Normal speech. PSYCHIATRIC: Pleasantly confused; insight and judgment limited. Medications and IVs Current Medications Medications (Trade) Dose Ordered Sig/Nicholas Route Start Time Stop Time Status Last Admin (NS Flush) 2 ml UNSCH PRN IV FLUSH 03/10/17 03:15 (NS Flush) 2 ml BID IV FLUSH 03/10/17 09:00 03/11/17 21:30 Naloxone HCl 0.4 mg 0.4 mg UNSCH PRN IV 03/10/17 03:15 (Rocephin Inj/NS Inj) 100 ml @ 200 mls/hr Q24H IV 03/11/17 02:00 03/12/17 02:43 (Pill Splitter) 1 ea UNSCH PRN OTHER 03/10/17 07:30 (Tylenol) 650 mg Q4H PRN PO 03/10/17 08:15 (Eliquis) 5 mg BID PO 03/10/17 21:00 03/11/17 21:30 (Namenda) 5 mg DAILY PO 03/11/17 10:00 03/11/17 13:01 (Lopressor) 25 mg Q12HR PO 03/11/17 10:00 03/11/17 21:30 (Catapres) 0.1 mg Q6H PRN PO 03/11/17 10:00 (Haldol Inj) 2 mg Q8H PRN IM 03/11/17 14:00 03/12/17 00:06 (SEROquel) 25 mg HS PO 03/11/17 21:00 A/P Assessment and Plan 82-year-old female who was brought in for altered mental status when found to be driving on the wrong side of the road by police Acute metabolic encephalopathy: Possibly due to underlying dementia with acute infection. Reviewed: UA with evidence of UTI. Afebrile with no leukocytosis. Brain MRI with chronic changes, encephalomalacia, no acute process. Head MRA with slight atherosclerotic changes. Carotid ultrasound with no significant stenosis. UDS negative. -Neurology consulted, appreciate input -PT/ST, appreciate recommendations -Echocardiogram with normal systolic function EF 55-60%. -EEG abnormal vs artifact. -Monitor on telemetry -Neuro checks -patient improving slightly, however still disoriented, suspect underlying Alzheimer's dementia per neurology UTI: Bacterial versus fungal. Continue on empiric Rocephin. Fluconazole 1. Preliminary urine culture with gram negative rods, continue to follow. New onset atrial fibrillation: EKGs and telemetry show A. fib. Rate seems controlled on metoprolol. D/W neurology, started Eliquis. Suspect underlying dementia: Patient is pleasantly confused and disoriented. Suspected underlying Alzheimer's disease per neurology, started on Namenda. Cognitive eval. Possible acute worsening with UTI. Started Seroquel 25mg hs for agitation. Hypertension: s/p permissive HTN, CVA ruled out. Started Metoprolol with A. fib. Restarted patient's benazepril. Clonidine as needed. Monitor and adjust medications as needed. Subclinical hypothyroidism: TSH is slightly elevated with normal T4. Possibly due to patient missing levothyroxine dose at home. Resume home levothyroxine dose. Repeat Labs in 4-6 Weeks. Right knee pain: Likely chronic as patient presented with soft knee brace. Xray shows s/p right knee replacement; soft tissue swelling along medical knee; intact knee replacement and bony structures. DVT prophylaxis: SCDs Discharge Planning Case management to assist with discharge planning, needs SNF if possible. Tabitha Shrestha PA-C Mar 12, 2017 8:13 am
--- NOTE | 2017-03-12 09:11 | HHI.PR ---
Subjective Remarks afib Objective Vital Signs Date Time Temp Pulse Resp B/P Pulse Ox O2 Delivery O2 Flow Rate FiO2 03/12/17 07:33 98.3 86 18 159/90 95 03/12/17 03:43 98.1 65 17 180/86 95 03/11/17 20:07 96.4 100 17 179/93 97 03/11/17 15:52 97.9 79 18 154/78 98 03/11/17 15:01 90 03/11/17 11:18 98.0 78 16 163/89 98 03/11/17 11:00 86 I/O 03/11/17 03/11/17 03/11/17 03/12/17 03/12/17 03/12/17 07:00 15:00 23:00 07:00 15:00 23:00 Intake Total 580 ml Balance 580 ml Intake Oral 480 ml IV Total 100 ml # Voids 5 # Bowel Movements 1 Result Diagram: 03/11/17 0700 03/11/17 0700 Objective Remarks bp up knows [place] not [facility] not hospital moves all r knee tender Assessment and Plan Assessment and Plan imp mri 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 left sharps will repeat i think she has AD and on namenda on eliquis for afib echo lae only oob swelling xray r knee and consider ortho as very painful for her ? injection would help? will need to go home with family or nh as dementia says she has daughter in town? ready for dc after eeg done i will review later today if agitated ambulate around not haldol needs bp control Rogerio Crow MD Mar 12, 2017 09:11
[2017-03-12] MEDS: APIXABAN 5 MG TABLET PO SCH ×2 (09:21→21:27)
[2017-03-12] MEDS: LISINOPRIL 20 MG TAB PO SCH (09:21)
[2017-03-12] MEDS: MEMANTINE HCL 5 MG TAB PO SCH (09:22)
[2017-03-12] MEDS: SODIUM CHLORIDE 0.9% FLUSH 10 ML FLUSH IV FLUSH SCH ×2 (09:22→21:00)
[2017-03-12] MEDS: METOPROLOL TARTRATE 25 MG TAB PO SCH ×2 (09:22→21:27)
[2017-03-12] MEDS: LEVOTHYROXINE SODIUM 75 MCG TAB PO SCH (09:23)
[2017-03-12 11:17] VITALS: BP 143/87; PULSE 95; RESP 18; TEMP 98.4; O2SAT 99
[2017-03-12 15:42] VITALS: BP 126/79; PULSE 86; RESP 18; TEMP 99.3; O2SAT 97
[2017-03-12 20:00] VITALS: BP 131/85; PULSE 96; RESP 16; TEMP 96.7; O2SAT 98
[2017-03-12] MEDS: QUEtiapine FUMARATE 25 MG TAB PO SCH (21:27)
[2017-03-13] VITALS (7 sets, daily range): BP systolic 116–170; BP diastolic 59–99; PULSE 75–94; RESP 14–17; TEMP 98–98.6; O2SAT 95–97
[2017-03-13] MEDS: cefTRIAXone INJ 1,000 MG in SODIUM CHLORIDE 0.9% INJ 100 ML IV SCH (01:16)
[2017-03-13] MEDS: LEVOTHYROXINE SODIUM 75 MCG TAB PO SCH (05:37)
[2017-03-13 06:18] LABS: BICARBONATE 26.4 MEQ/L (21.0-32.0); MAGNESIUM 1.9 MG/DL (1.5-2.5)
[2017-03-13 06:20] LABS: POTASSIUM 4.5 MEQ/L (3.5-5.1)
[2017-03-13] MEDS ORDERED: CYANOCOBALAMIN 1000 MCG/ML VIAL SQ SCH (09:00)
[2017-03-13] MEDS: APIXABAN 5 MG TABLET PO SCH (09:48)
[2017-03-13] MEDS: METOPROLOL TARTRATE 25 MG TAB PO SCH (09:48)
[2017-03-13] MEDS: QUEtiapine FUMARATE 25 MG TAB PO SCH (09:48)
[2017-03-13] MEDS: LISINOPRIL 20 MG TAB PO SCH (09:49)
[2017-03-13] MEDS: SODIUM CHLORIDE 0.9% FLUSH 10 ML FLUSH IV FLUSH SCH (09:49)
[2017-03-13] MEDS: MEMANTINE HCL 5 MG TAB PO SCH (09:57)
[2017-03-13] MEDS ORDERED: NAME5TAB2 PO (10:25)
[2017-03-13] MEDS ORDERED: APIX5TAB PO (10:25)
[2017-03-13] MEDS ORDERED: METO25TA3 PO (10:25)
[2017-03-13] MEDS ORDERED: QUET1TAB7 PO (10:25)
[2017-03-13] MEDS ORDERED: CIPR250T2 PO (10:27)
[2017-03-13] MEDS ORDERED: LEVO.075 PO (10:27)
[2017-03-13] MEDS ORDERED: LISI-515 PO (10:27)
--- NOTE | 2017-03-13 10:28 | HHI.DCPOC ---
Discharge Care Plan Diagnosis: (1) Urinary tract infection (2) Encephalopathy (3) Dementia Goals to Promote Your Health * To prevent worsening of your condition and complications * To maintain your health at the optimal level Directions to Meet Your Goals Take your medications as prescribed Follow your dietary instruction Follow activity as directed Keep your appointments as scheduled Take your immunizations and boosters as scheduled If your symptoms worsen call your PCP, if no PCP go to Urgent Care Center or Emergency Room Smoking is Dangerous to Your Health. Avoid second hand smoke Call the 24-hour hour crisis hotline for domestic abuse at Tabitha Shrestha PA-C Mar 13, 2017 10:28 am
--- NOTE | 2017-03-13 10:36 | HHI.PR ---
Subjective Remarks Follow up to UTI, AMS, afib, dementia. The patient is awake, alert, oriented to self only. Mental status much improved compared to yesterday. She is calm, cooperative, and communicative with staff. She ate most of her breakfast. She states her knees still hurt but improved and now back to baseline. She believes the knee sleeve helps with the pain. Otherwise the patient denies any other medical complaints. Discussed her going to rehab. The patient says she's gone to rehab in the past and it helped her a lot. Objective Vitals Vital Signs Date Time Temp Pulse Resp B/P Pulse Ox O2 Delivery O2 Flow Rate FiO2 03/13/17 10:24 91 135/68 03/13/17 07:27 98.0 75 14 170/99 96 03/13/17 04:00 98.6 77 15 153/91 96 03/13/17 00:00 98.6 93 17 139/88 96 03/12/17 22:35 18 03/12/17 20:00 96.7 96 16 131/85 98 03/12/17 15:42 99.3 86 18 126/79 97 03/12/17 11:17 98.4 95 18 143/87 99 I/O 03/12/17 03/12/17 03/12/17 03/13/17 03/13/17 03/13/17 07:00 15:00 23:00 07:00 15:00 23:00 Intake Total 200 ml 400 ml Balance 200 ml 400 ml Intake Oral 200 ml 400 ml Result Diagram: 03/11/17 0700 03/13/17 0419 Imaging Last Impressions Knee X-Ray 03/11/17 0000 Signed Impressions: Service Date/Time: Saturday, March 11, 2017 10:22 - CONCLUSION: Status post right knee replacement. Soft tissue swelling along the medial aspect of the knee. Intact knee replacement and bony structures. Bg Rivera MD Brain MRI 03/10/17 1058 Signed Impressions: Service Date/Time: Friday, March 10, 2017 16:30 - CONCLUSION: 1. No acute intracranial abnormality. 2. Chronic small vessel ischemic change. 3. Small area of encephalomalacia involving the right parietal lobe. Rivera Corcoran Jr., MD Head CT 03/10/17 0053 Signed Impressions: Service Date/Time: Friday, March 10, 2017 01:59 - CONCLUSION: 1. Atrophy and chronic appearing white matter disease. Primo Mclaughlin MD Head Magnetic Resonance Angiography 03/10/17 0000 Signed Impressions: Service Date/Time: Friday, March 10, 2017 16:30 - CONCLUSION: Slight atherosclerotic changes of distal branches bilaterally, otherwise unremarkable. Jessica Huang MD Chest X-Ray 03/10/17 0000 Signed Impressions: Service Date/Time: Friday, March 10, 2017 13:47 - CONCLUSION: No acute cardiopulmonary disease. Jessica Huang MD Carotid Artery Ultrasound 03/10/17 0000 Signed Impressions: Service Date/Time: Friday, March 10, 2017 14:52 - CONCLUSION: No evidence for hemodynamically significant stenosis. Jessica Huang MD Objective Remarks GENERAL: Well-nourished, well-developed elderly female patient in [facility]. SKIN: Warm and dry. No rash. HEENT: Normocephalic. Atraumatic. Pupils equal and round. Mucous membranes pink and moist. NECK: Supple. Trachea midline. CARDIOVASCULAR: Regular rate and rhythm. S1, S2 noted. No murmur appreciated. RESPIRATORY: No accessory muscle use. Clear to auscultation. Breath sounds equal bilaterally. GASTROINTESTINAL: Abdomen soft, non-tender, nondistended. Normoactive bowel sounds x4. MUSCULOSKELETAL: No obvious deformities. Trace anterior tibial edema on the right, none on the left. Right knee ROM improved today however unable to fully flex the knee. Compression brace on right knee. NEUROLOGICAL: Awake and alert, oriented to self only. No obvious cranial nerve deficits. Motor grossly within normal limits. 5/5 muscle strength in bilateral upper and lower extremities. Normal speech. PSYCHIATRIC: Pleasantly confused; insight and judgment limited. Medications and IVs Current Medications Medications (Trade) Dose Ordered Sig/Nicholas Route Start Time Stop Time Status Last Admin (NS Flush) 2 ml UNSCH PRN IV FLUSH 03/10/17 03:15 (NS Flush) 2 ml BID IV FLUSH 03/10/17 09:00 03/13/17 09:49 Naloxone HCl 0.4 mg 0.4 mg UNSCH PRN IV 03/10/17 03:15 (Rocephin Inj/NS Inj) 100 ml @ 200 mls/hr Q24H IV 03/11/17 02:00 03/13/17 01:16 (Pill Splitter) 1 ea UNSCH PRN OTHER 03/10/17 07:30 (Tylenol) 650 mg Q4H PRN PO 03/10/17 08:15 03/12/17 21:27 (Eliquis) 5 mg BID PO 03/10/17 21:00 03/13/17 09:48 (Namenda) 5 mg DAILY PO 03/11/17 10:00 03/13/17 09:57 (Lopressor) 25 mg Q12HR PO 03/11/17 10:00 03/13/17 09:48 (Catapres) 0.1 mg Q6H PRN PO 03/11/17 10:00 (SEROquel) 25 mg HS PO 03/11/17 21:00 03/13/17 09:48 (Synthroid) 75 mcg DAILY@0600 PO 03/12/17 09:00 03/13/17 05:37 (Prinivil) 20 mg DAILY PO 03/12/17 09:00 03/13/17 09:49 (Vitamin B12 Inj) 1,000 mcg DAILY SQ 03/13/17 09:00 03/16/17 08:59 03/13/17 09:49 A/P Problem List: (1) Encephalopathy ICD Code: G93.40 Status: Acute (2) Urinary tract infection ICD Code: N39.0 Status: Acute (3) Dementia ICD Code: F03.90 Status: Acute (4) Atrial fibrillation ICD Code: I48.91 Status: Acute (5) HTN (hypertension) ICD Code: I10 Status: Acute Assessment and Plan 82-year-old female who was brought in for altered mental status when found to be driving on the wrong side of the road by police Acute metabolic encephalopathy: Possibly due to underlying dementia with acute infection. Reviewed: UA with evidence of UTI. Afebrile, no leukocytosis. Brain MRI with chronic changes, encephalomalacia, no acute process. Head MRA with slight atherosclerotic changes. Carotid ultrasound with no significant stenosis. UDS negative. -Neurology consulted, appreciate input -PT/ST, appreciate recommendations -Echocardiogram with normal systolic function EF 55-60%. -EEG abnormal vs artifact. -Monitor on telemetry -Neuro checks -patient much improved, calm and cooperative, oriented to self only likely secondary to underlying Alzheimer's dementia per neurology -appears at her baseline UTI: Bacterial versus fungal. Continue on empiric Rocephin. Fluconazole 1. Urine culture with E. coli, pansensitive. Will change to Cipro 250mg po bid x3days. New onset atrial fibrillation: EKGs and telemetry show A. fib. Rate seems well- controlled on metoprolol. D/W neurology, started on Eliquis. Suspect underlying dementia: Patient is pleasantly confused and disoriented. Suspected underlying Alzheimer's disease per neurology, started on Namenda. Cognitive eval. Possible acute worsening with UTI. Started Seroquel 25mg hs for agitation. Patient much improved, oriented to self only, likely patient's baseline. Hypertension: s/p permissive HTN, CVA ruled out. Started Metoprolol with A. fib. Restarted patient's benazepril. Clonidine as needed. Monitor and adjust medications as needed. Subclinical hypothyroidism: TSH is slightly elevated with normal T4. Possibly due to patient missing levothyroxine dose at home. Resume home levothyroxine dose. Repeat Labs in 4-6 Weeks. Right knee pain: Likely chronic as patient presented with soft knee brace. Xray shows s/p right knee replacement; soft tissue swelling along medical knee; intact knee replacement and bony structures. Pain improved. DVT prophylaxis: SCDs Discharge Planning Case management to assist with discharge planning, needs SNF. The patient is medically clear for discharge to SNF once arrangements made. Discussed with case management and RN. Problem Qualifiers (1) Urinary tract infection: Qualified Code: N30.00 - Acute cystitis without hematuria Tabitha Shrestha PA-C Mar 13, 2017 10:36 am
[2017-03-13 11:26] LABS: RAPID PLASMA REAGIN SCREEN NON-REACTIVE (NON-REACTVE)
[2017-03-13 14:45] LABS: ANA SCREEN NEG (NEG)
--- NOTE | 2017-03-13 16:13 | MG ---
cc: JANAY YARBROUGH MD Lab No: Date: 03/13/2017 Age: Sex: F Race: DATE OF [address] Crow. MEDICAL HISTORY 1. Dementia. 2. Arthritis. 3. Depression. 4. Incontinence. 5. Headaches. 6. Hypertension. 7. Thyroid disease. 8. Left cataract surgery. 9. Cardiovascular. 10. Glaucoma. 11. Blood transfusion. MEDICATIONS 1. Synthroid. 2. Prinivil. 3. Haldol. 4. Namenda. 5. Lopressor. 6. Ceftriaxone. DESCRIPTION OF THE RECORDING In the beginning of the EEG recording the background activity was 8-9 Hz alpha located posteriorly bilateral and symmetrical, superimposed by beta activity. During the recording the patient became drowsy with slowing and drop out of the posterior background rhythm replaced by 6 Hz theta activity and the patient transitioned to stage II sleep with appearance of vertex waves with K complexes. Photic stimulation did not elicit a driving response. Hyperventilation was not done. There was generalized slowing of the background. No electrographic seizures or epileptiform discharges during the recording. Of note, EKG revealed irregular heart rate. INTERPRETATION 1. Awake and sleep EEG. 2. Generalized slowing may indicate an encephalopathic pattern. No ictal activity was noted. Absence of electrographic seizures or epileptiform discharges does not rule out the diagnosis of epilepsy. Clinical correlation is recommended. Janay Yarbrough MD RGO/KK /3:57 PM /4:11 PM MARTY
--- NOTE | 2017-03-13 17:50 | HHI.DS ---
Discharge Summary Admission Date Mar 10, 2017 at 2:54 am Discharge Date: Mar 13, 2017 Admitting Diagnosis altered mental status, urinary tract infection (1) Encephalopathy ICD Code: G93.40 Diagnosis: Principal (2) Urinary tract infection ICD Code: N39.0 Diagnosis: Principal (3) Dementia ICD Code: F03.90 Diagnosis: Secondary (4) Atrial fibrillation ICD Code: I48.91 Diagnosis: Secondary (5) HTN (hypertension) ICD Code: I10 Diagnosis: Secondary Procedures None. Brief History - From Admission History from patient, ER physician, medication, and review of medical records. Patient is extremely poor historian. She does have significant expressive aphasia. She is really unable to tell me why she is here. However when asked whether she had a fall, she stated yes. When asked what time or date that happens, she really does not know. She was initially seen 5 days ago. Later changed to 1 or 2 days ago. When asked about her birthday, she is not able to recall her date. She is not able to recall the city she is living in. She cannot tell the name of her doctor or her daughter. CBC/BMP: 03/11/17 0700 03/13/17 0419 Significant Findings Laboratory Tests Test 03/10/17 03/11/17 03/13/17 19:18 07:00 04:19 Troponin I LESS THAN 0.02 NG/ML (0.02-0.05) HDL Cholesterol 75.5 MG/DL (40.0-60.0) Thyroid Stimulating Hormone 5.300 uIU/ML 3rd Gen (0.358-3.740) Monocytes (%) (Auto) 9.2 % (0.0-8.0) Potassium Level 3.4 MEQ/L (3.5-5.1) Chloride Level 109 MEQ/L (98-107) Estimat Glomerular Filtration 88 ML/MIN (>89) 82 ML/MIN (>89) Rate Imaging Last Impressions Knee X-Ray 03/11/17 0000 Signed Impressions: Service Date/Time: Saturday, March 11, 2017 10:22 - CONCLUSION: Status post right knee replacement. Soft tissue swelling along the medial aspect of the knee. Intact knee replacement and bony structures. Bg Rivera MD Brain MRI 03/10/17 1058 Signed Impressions: Service Date/Time: Friday, March 10, 2017 16:30 - CONCLUSION: 1. No acute intracranial abnormality. 2. Chronic small vessel ischemic change. 3. Small area of encephalomalacia involving the right parietal lobe. Rivera Corcoran Jr., MD Head CT 03/10/17 0053 Signed Impressions: Service Date/Time: Friday, March 10, 2017 01:59 - CONCLUSION: 1. Atrophy and chronic appearing white matter disease. Primo Mclaughlin MD Head Magnetic Resonance Angiography 03/10/17 0000 Signed Impressions: Service Date/Time: Friday, March 10, 2017 16:30 - CONCLUSION: Slight atherosclerotic changes of distal branches bilaterally, otherwise unremarkable. Jessica Huang MD Chest X-Ray 03/10/17 0000 Signed Impressions: Service Date/Time: Friday, March 10, 2017 13:47 - CONCLUSION: No acute cardiopulmonary disease. Jessica Huang MD Carotid Artery Ultrasound 03/10/17 0000 Signed Impressions: Service Date/Time: Friday, March 10, 2017 14:52 - CONCLUSION: No evidence for hemodynamically significant stenosis. Jessica Huang MD PE at Discharge GENERAL: Well-nourished, well-developed elderly female patient in [facility]. SKIN: Warm and dry. No rash. HEENT: Normocephalic. Atraumatic. Pupils equal and round. Mucous membranes pink and moist. NECK: Supple. Trachea midline. CARDIOVASCULAR: Regular rate and rhythm. S1, S2 noted. No murmur appreciated. RESPIRATORY: No accessory muscle use. Clear to auscultation. Breath sounds equal bilaterally. GASTROINTESTINAL: Abdomen soft, non-tender, nondistended. Normoactive bowel sounds x4. MUSCULOSKELETAL: No obvious deformities. Trace anterior tibial edema on the right, none on the left. Right knee ROM improved today however unable to fully flex the knee. Compression brace on right knee. NEUROLOGICAL: Awake and alert, oriented to self only. No obvious cranial nerve deficits. Motor grossly within normal limits. 5/5 muscle strength in bilateral upper and lower extremities. Normal speech. PSYCHIATRIC: Pleasantly confused; insight and judgment limited. Hospital Course 82-year-old female who was brought in for altered mental status when found to be driving on the wrong side of the road by police The patient was initially admitted with acute metabolic encephalopathy, suspect to be multifactorial with acute infection and underlying dementia. UA +UTI, Urine culture with pansensitive E.coli, given IV Rocephin, changed to po Cipro at discharge. Checked Brain MRI which showed chronic changes, encephalomalacia, no acute process. Head MRA with slight atherosclerotic changes. Carotid ultrasound with no significant stenosis. UDS negative. Echocardiogram with normal systolic function EF 55-60%. EEG abnormal vs artifact. Neurology was consulted, suspected underlying Alzheimer's dementia, patient is pleasantly confused and oriented to self only, neuro started patient on Namenda as well as Seroquel 25mg hs for mood stabilization. The patient was also diagnosed with new onset afib upon admission, rate well controlled with metoprolol, and she was started on Eliquis. Hypertension treated with BB and ACEi with good BP control at discharge. The patient's mental status much improved the last day of admission, she was awake, alert, oriented to self only (likely her baseline), was communicative, eating most of her meals. Case management arranged SNF placement, patient transferred to [facility]. Pt Condition on Discharge: Stable Discharge Disposition: Discharge to SNF Discharge Time: > 30 minutes Discharge Instructions DIET: Follow Instructions for: Heart Healthy Diet Speech Therapy-Diet Recommends: Mechanical Soft Activities you can perform: Regular-No Restrictions Follow up Referrals: PCP Follow-up - 2-3 Days New Medications: Ciprofloxacin (Ciprofloxacin) 250 Mg Tab 250 MG PO BID Infection #6 Ref 0 TAB Apixaban (Eliquis) 5 Mg Tab 5 MG PO BID afib #60 TAB Levothyroxine (Synthroid) 75 Mcg Tab 75 MCG PO DAILY@0600 Thyroid #30 TAB Lisinopril (Lisinopril) 20 Mg Tab 20 MG PO DAILY Blood Pressure Management #30 TAB Memantine (Namenda) 5 Mg Tab 5 MG PO DAILY dementia #30 TAB Metoprolol Tartrate (Metoprolol Tartrate) 25 Mg Tab 25 MG PO Q12HR afib #60 TAB Quetiapine (Quetiapine) 25 Mg Tab 25 MG PO HS Control Mood Swing #30 TAB Continued Medications: Cholecalciferol (Vitamin D3 Super Strength) 2,000 Unit Cap 2000 UNIT PO DAILY CAP Timolol Maleate (Ophth) (Timolol Maleate) 0.5 % Cris 1 DROP EACH EYE DAILY CRIS Discontinued Medications: Benazepril Hcl (Benazepril Hcl) 20 Mg Tab 20 MG PO DAILY TAB Diltiazem ER 24 HR (Diltiazem ER 24 HR) 180 Mg Ophelia 180 MG PO DAILY #30 Ref 0 TAB Hydrochlorothiazide (Hctz) 25 Mg Tab 25 MG PO DAILY TAB Levothyroxine Sodium (Levothyroxine 75 mcg) 75 Mcg Tab 75 MCG PO DAILY TAB Melatonin (Melatonin) 1 Mg Cap 1 MG PO HS CAP Metoprolol Tartrate (Metoprolol Tartrate) 50 Mg Tab 50 MG PO DAILY #30 Ref 0 TAB Sertraline (Sertraline) 100 Mg Tab 100 MG PO DAILY #30 Ref 0 TAB Tabitha Shrestha PA-C Mar 13, 2017 5:50 pm
[2017-03-13] MEDS ORDERED: CIPROFLOXACIN 250 MG TAB PO SCH (21:00)
== END 2017-03-13 17:49 | disposition home or self-care (01) ==
LOC: NEPC 00:32 → NEDA 02:54 → NEPFCDU 06:04
PROVIDERS: ADMIT Hospitalist; ATTEND Hospitalist
DX: R47.01 Aphasia (principal); N30.00 Acute cystitis without hematuria; R60.0 Localized edema; R90.82 White matter disease, unspecified; I45.10 Unspecified right bundle-branch block; R94.31 Abnormal electrocardiogram [ECG] [EKG]; M79.89 Other specified soft tissue disorders; M25.561 Pain in right knee; R41.82 Altered mental status, unspecified; G93.41 Metabolic encephalopathy; G93.89 Other specified disorders of brain; I10 Essential (primary) hypertension; I48.91 Unspecified atrial fibrillation; I70.203 Unspecified atherosclerosis of native arteries of extremities, bilateral legs; E78.5 Hyperlipidemia, unspecified; E03.9 Hypothyroidism, unspecified; F32.9 Major depressive disorder, single episode, unspecified; M19.90 Unspecified osteoarthritis, unspecified site; Z79.899 Other long term (current) drug therapy; Z86.73 Personal history of transient ischemic attack (TIA), and cerebral infarction without residual deficits; Z87.891 Personal history of nicotine dependence; Z78.1 Physical restraint status; Z96.651 Presence of right artificial knee joint
CPT/HCPCS: 70450; 70544; 70551; 71010; 73560; 80048; 80053; 80061; 80307; 81001; 82140; 82550; 82607; 83735; 83921; 84425; 84439; 84443; 84484; 85025; 85652; 86038; 86430; 86592; 87077; 87086; 87186; 92523; 92526; 92610; 93005; 93306; 93880; 95819; 96125; 96365; 97110; 97116; 97162; 97530; 99285; G0378; G8987; G8988; G8996; G8997; G8998; G9162; G9163; G9164; G9169; G9170; J0696; J1630; J3420; J7030; P9612

== ENCOUNTER 2017-03-28 12:23 | Inpatient (IN) | payer OTHER, MEDICARE ==
[~2017-03-28] VITALS: Ht 170.2 cm; Wt 69.9 kg
[~2017-03-28 12:23] MED LIST changes: +APIX5TAB PO; -BENA20TA PO; +CIPR250T2 PO; -HYDR-2768 PO; +LEVO.075 PO; -LEVO75TA3 PO; +LISI-515 PO; -MELA1CAP PO; +METO25TA3 PO; +NAME5TAB2 PO; +QUET1TAB7 PO
[2017-03-28 12:32] VITALS: BP 160/79; PULSE 56; RESP 14; TEMP 98.9; O2SAT 100
[2017-03-28] MEDS ORDERED: SODIUM CHLORIDE 0.9% FLUSH 5 ML FLUSH IV FLUSH PRN (12:45)
[2017-03-28] MEDS ORDERED: HALOPERIDOL LACTATE 5 MG/ML AMP IM ONE (12:45)
[2017-03-28 12:50] VITALS: O2SAT 100
--- NOTE | 2017-03-28 12:57 | PD ---
HPI Chief Complaint: Medical Clearance Time Seen by Provider: 12:51 Travel History International Travel<30 days: No Contact w/Intl Traveler<30days: No Traveled to known affect area: No History of Present Illness HPI Patient is an 82-year-old female brought in by EMS for evaluation, per EMS patient has been refusing to eat or take her medications, she has been incontinent and urinating on herself. Family member states that she has requesting to go back to [facility]. Patient is a poor historian, she keeps repeating that she wants to . Past medical history significant for dementia, atrial fibrillation, hypothyroidism, hypertension, glaucoma, encephalopathy, urinary tract infection. PFSH Past Medical History Hx Anticoagulant Therapy: Yes Arthritis: Yes Atrial Fibrillation: Yes Blood Disorders: No Depression: Yes Heart Rhythm Problems: Yes Cancer: No Dementia: Yes Diabetes: No Gastrointestinal Disorders: Yes (BURNING TONGUE, LUMPS ON TONGUE) Glaucoma: Yes Genitourinary: Yes (INCONTINENCE) Headaches: Yes Hepatitis: No Hiatal Hernia: No Hypertension: Yes Immune Disorder: No Musculoskeletal: Yes (ARTHRITIS) Neurologic: Yes (HEADACHES) Reproductive: No Respiratory: No Thyroid Disease: Yes ?: Not Menopausal: Yes Past Surgical History AICD: No Appendectomy: Yes Ear Surgery: No Eye Surgery: Yes (LEFT CATARACT EXTRACT.) Genitourinary Surgery: Yes (BLADDER SUSP.) Hysterectomy: Yes Joint Replacement: Yes (RIGHT KNEE) Pacemaker: No Tonsillectomy: Yes Social History Alcohol Use: No Tobacco Use: No Substance Use: No Allergies-Medications (Allergen,Severity, Reaction): Coded Allergies: No Known Allergies (Verified , 03/28/17) Reported Meds & Prescriptions Reported Meds & Active Scripts Active Synthroid (Levothyroxine Sodium) 75 Mcg Tab 75 Mcg PO DAILY@0600 Lisinopril 20 Mg Tab 20 Mg PO DAILY Metoprolol Tartrate 25 Mg Tab 25 Mg PO Q12HR Namenda (Memantine) 5 Mg Tab 5 Mg PO DAILY Reported Vitamin D3 (Cholecalciferol) 1,000 Unit Tab 2,000 Units PO DAILY Escitalopram (Escitalopram Oxalate) 5 Mg Tab 5 Mg PO DAILY Eliquis (Apixaban) 5 Mg Tab 5 Mg PO DAILY Quetiapine (Quetiapine Fumarate) 25 Mg Tab 25 Mg PO BID Timolol Opth Drops 0.5 % Soln 1 Drop EACH EYE DAILY Review of Systems ROS Limitations: Uncooperative, Combative, Poor Historian Except as stated in HPI: all other systems reviewed are Neg Psychiatric: Positive: Suicidal Ideations Physical Exam Narrative GENERAL: Well-developed, well-nourished appearing elderly female. Combative SKIN: Warm and dry. HEAD: Atraumatic. Normocephalic. EYES: Pupils equal and round. No scleral icterus. No injection or drainage. ENT: No nasal bleeding or discharge. Mucous membranes pink and moist. NECK: Trachea midline. No JVD. CARDIOVASCULAR: Mildly tachycardic RESPIRATORY: No accessory muscle use. Clear to auscultation. Breath sounds equal bilaterally. GASTROINTESTINAL: Abdomen soft, non-tender, nondistended. Hepatic and splenic margins not palpable. MUSCULOSKELETAL: Extremities without clubbing, cyanosis, or edema. No obvious deformities. NEUROLOGICAL: Awake and alert. No obvious cranial nerve deficits. Motor grossly within normal limits. Five out of 5 muscle strength in the arms and legs. Normal speech. PSYCHIATRIC: Combative mood and affect; insight and judgment impaired. Data Data Last Documented VS Vital Signs Date Time Temp Pulse Resp B/P Pulse Ox O2 Delivery O2 Flow Rate FiO2 03/28/17 12:50 100 03/28/17 12:32 98.9 56 14 160/79 Orders Complete Blood Count With Diff (03/28/17 12:44) Comprehensive Metabolic Panel (03/28/17 12:44) Creatine Kinase (Cpk) (03/28/17 12:44) Prothrombin Time / Inr (Pt) (03/28/17 12:44) Act Partial Throm Time (Ptt) (03/28/17 12:44) Urinalysis - C+S If Indicated (03/28/17 12:44) Lactic Acid Sepsis Protocol (03/28/17 12:44) Blood Glucose (03/28/17 12:44) Ecg Monitoring (03/28/17 12:44) Iv Access Insert/Monitor (03/28/17 12:44) Cath For Specimen (03/28/17 12:44) Oximetry (03/28/17 12:44) Sodium Chloride 0.9% Flush (Ns Flush) (03/28/17 12:45) Haloperidol Inj (Haldol Inj) (03/28/17 12:45) Chest, Single Ap (03/28/17 ) Psych Screen (03/28/17 13:31) Urine Culture (03/28/17 13:20) Sodium Chlor 0.9% 1000 Ml Inj (Ns 1000 M (03/28/17 14:30) Ceftriaxone Inj (Rocephin Inj) (03/28/17 15:00) (Hub Use Only)Inp Phy Cons/Ref (03/28/17 ) Place In Observation (03/28/17 ) Vital Signs (Adult) Q4H (03/28/17 18:18) Activity Oob With Assistance (03/28/17 18:18) Intake + Output FADIA.QSHIFT (03/28/17 18:18) Diet Heart Healthy (03/28/17 Dinner) D5-1/2 Ns + Kcl 20 Meq Inj (D5-1/2 Ns + (03/28/17 18:18) Sodium Chloride 0.9% Flush (Ns Flush) (03/28/17 18:30) Sodium Chloride 0.9% Flush (Ns Flush) (03/28/17 21:00) Ondansetron Inj (Zofran Inj) (03/28/17 18:30) Comprehensive Metabolic Panel (03/29/17 06:00) Complete Blood Count With Diff (03/29/17 06:00) Pt Request For Service (03/28/17 18:18) Case Management Consult (03/28/17 18:18) Scd Bilateral/Knee High FADIA.BID (03/28/17 18:18) Naloxone Inj (Narcan Inj) (03/28/17 18:30) Docusate Sodium-Senna (Rose Mary-Colace) (03/28/17 21:00) Magnesium Hydroxide Liq (Milk Of Magnesi (03/28/17 18:30) Sennosides (Senokot) (03/28/17 18:30) Bisacodyl Supp (Dulcolax Supp) (03/28/17 18:30) Lactulose Liq (Lactulose Liq) (03/28/17 18:30) Consult Psychiatry (03/28/17 ) Ceftriaxone Inj (Rocephin Inj) (03/28/17 18:30) Apixaban (Eliquis) (03/29/17 09:00) Escitalopram (Lexapro) (03/29/17 09:00) Levothyroxine (Synthroid) (03/29/17 06:00) Lisinopril (Prinivil) (03/29/17 09:00) Memantine (Namenda) (03/29/17 09:00) Metoprolol Tartrate (Lopressor) (03/28/17 21:00) Quetiapine (Seroquel) (03/28/17 21:00) Admit Order (Ed Use Only) (03/28/17 18:20) Labs Laboratory Tests Test 03/28/17 03/28/17 03/28/17 13:20 13:40 17:05 White Blood Count 9.7 TH/MM3 Red Blood Count 4.88 MIL/MM3 Hemoglobin 14.3 GM/DL Hematocrit 42.1 % Mean Corpuscular Volume 86.3 FL Mean Corpuscular Hemoglobin 29.2 PG Mean Corpuscular Hemoglobin 33.8 % Concent Red Cell Distribution Width 14.1 % Platelet Count 300 TH/MM3 Mean Platelet Volume 9.2 FL Neutrophils (%) (Auto) 70.1 % Lymphocytes (%) (Auto) 19.5 % Monocytes (%) (Auto) 8.4 % Eosinophils (%) (Auto) 1.3 % Basophils (%) (Auto) 0.7 % Neutrophils # (Auto) 6.8 TH/MM3 Lymphocytes # (Auto) 1.9 TH/MM3 Monocytes # (Auto) 0.8 TH/MM3 Eosinophils # (Auto) 0.1 TH/MM3 Basophils # (Auto) 0.1 TH/MM3 CBC Comment DIFF FINAL Differential Comment Prothrombin Time 12.1 SEC Prothromb Time International 1.1 RATIO Ratio Activated Partial 31.2 SEC Thromboplast Time Urine Color YELLOW Urine Turbidity CLEAR Urine pH 8.0 Urine Specific [place] 1.011 Urine Protein NEG mg/dL Urine Glucose (UA) NEG mg/dL Urine Ketones NEG mg/dL Urine Occult Blood NEG Urine Nitrite NEG Urine Bilirubin NEG Urine Urobilinogen LESS THAN 2.0 MG/DL Urine Leukocyte Esterase SMALL Urine RBC 2 /hpf Urine WBC 13 /hpf Urine Squamous Epithelial 1 /hpf Cells Urine Transitional Epithelial <1 /hpf Cells Urine Bacteria RARE /hpf Urine Hyaline Casts 2 /lpf Urine Mucus FEW /lpf Microscopic Urinalysis Comment CATH-CULTURE IND Sodium Level 140 MEQ/L Potassium Level 4.4 MEQ/L Chloride Level 104 MEQ/L Carbon Dioxide Level 21.1 MEQ/L Anion Gap 15 MEQ/L Blood Urea Nitrogen 16 MG/DL Creatinine 1.10 MG/DL Estimat Glomerular Filtration 48 ML/MIN Rate Random Glucose 78 MG/DL Calcium Level 9.8 MG/DL Total Bilirubin 0.6 MG/DL Aspartate Amino Transf 22 U/L (AST/SGOT) Alanine Aminotransferase 24 U/L (ALT/SGPT) Alkaline Phosphatase 136 U/L Total Creatine Kinase 43 U/L Total Protein 8.4 GM/DL Albumin 3.6 GM/DL Lactic Acid Level 2.1 mmol/L 1.0 mmol/L MDM Medical Decision Making Medical Screen Exam Complete: Yes Emergency Medical Condition: Yes Medical Record Reviewed: Yes Interpretation(s) Last Impressions Chest X-Ray 03/28/17 0000 Signed Impressions: Service Date/Time: Tuesday, March 28, 2017 13:26 - CONCLUSION: No acute cardiopulmonary abnormality is identified. Rob Crawford MD Laboratory Tests Test 03/28/17 03/28/17 13:20 13:40 White Blood Count 9.7 TH/MM3 Red Blood Count 4.88 MIL/MM3 Hemoglobin 14.3 GM/DL Hematocrit 42.1 % Mean Corpuscular Volume 86.3 FL Mean Corpuscular Hemoglobin 29.2 PG Mean Corpuscular Hemoglobin 33.8 % Concent Red Cell Distribution Width 14.1 % Platelet Count 300 TH/MM3 Mean Platelet Volume 9.2 FL Neutrophils (%) (Auto) 70.1 % Lymphocytes (%) (Auto) 19.5 % Monocytes (%) (Auto) 8.4 % Eosinophils (%) (Auto) 1.3 % Basophils (%) (Auto) 0.7 % Neutrophils # (Auto) 6.8 TH/MM3 Lymphocytes # (Auto) 1.9 TH/MM3 Monocytes # (Auto) 0.8 TH/MM3 Eosinophils # (Auto) 0.1 TH/MM3 Basophils # (Auto) 0.1 TH/MM3 CBC Comment DIFF FINAL Differential Comment Prothrombin Time 12.1 SEC Prothromb Time International 1.1 RATIO Ratio Activated Partial 31.2 SEC Thromboplast Time Urine Color YELLOW Urine Turbidity CLEAR Urine pH 8.0 Urine Specific [place] 1.011 Urine Protein NEG mg/dL Urine Glucose (UA) NEG mg/dL Urine Ketones NEG mg/dL Urine Occult Blood NEG Urine Nitrite NEG Urine Bilirubin NEG Urine Urobilinogen LESS THAN 2.0 MG/DL Urine Leukocyte Esterase SMALL Urine RBC 2 /hpf Urine WBC 13 /hpf Urine Squamous Epithelial 1 /hpf Cells Urine Transitional Epithelial <1 /hpf Cells Urine Bacteria RARE /hpf Urine Hyaline Casts 2 /lpf Urine Mucus FEW /lpf Microscopic Urinalysis Comment CATH-CULTURE IND Sodium Level 140 MEQ/L Potassium Level 4.4 MEQ/L Chloride Level 104 MEQ/L Carbon Dioxide Level 21.1 MEQ/L Anion Gap 15 MEQ/L Blood Urea Nitrogen 16 MG/DL Creatinine 1.10 MG/DL Estimat Glomerular Filtration 48 ML/MIN Rate Random Glucose 78 MG/DL Calcium Level 9.8 MG/DL Total Bilirubin 0.6 MG/DL Aspartate Amino Transf 22 U/L (AST/SGOT) Alanine Aminotransferase 24 U/L (ALT/SGPT) Alkaline Phosphatase 136 U/L Total Creatine Kinase 43 U/L Total Protein 8.4 GM/DL Albumin 3.6 GM/DL Lactic Acid Level 2.1 mmol/L Vital Signs Date Time Temp Pulse Resp B/P Pulse Ox O2 Delivery O2 Flow Rate FiO2 03/28/17 12:32 98.9 56 14 160/79 100 Differential Diagnosis UTI versus metabolic abnormality versus dementia versus psychosis versus failure to thrive versus suicidal ideations versus other Narrative Course Patient is an 82-year-old female presenting to the emergency department evaluation of failure to thrive secondary to not taking her medications and eating at home. Patient was discharged from [facility] on 22 March, since that time she's been at home and exhibiting these symptoms. Per EMS patient's mentation is at baseline. Patient on arrival was combative and physically aggressive, Haldol 5 mg IM times one dose ordered. CBC with no acute abnormality Lactic acid 2.1, 1 L IV fluids ordered Urinalysis with 13 white blood cells, rare bacteria, reflex culture pending. Rocephin 1g IV x 1 dose ordered. Previous urine culture grew Escherichia coli, sensitive to Rocephin. Chest x-ray with no acute cardiopulmonary abnormality Psych screen ordered and pending due to patient's statement that she just wants to , patient has been repeating this over and over again. Patient is medically cleared for psychiatric evaluation at this time. Also discussed with case management need for placement. procurement services manager stated that patient will need to be placed under observation until this can be obtained. Discussed with Dr. Mehta who accepted admit. Orders placed. Diagnosis Primary Impression: Urinary tract infection Qualified Code: N39.0 - Urinary tract infection without hematuria, site unspecified Additional Impression: Dementia Qualified Code: F03.91 - Dementia with behavioral disturbance, unspecified dementia type Admitting Information Admitting Physician Requests: Observation Condition: Stable Tracy Aviles [facility] Mar 28, 2017 12:57
[2017-03-28 13:53] LABS: BACTERIA, URINE RARE /hpf; BLOOD, URINE NEG (NEG); COMMENT (UR) CATH-CULTURE IND; CULTURE IF INDICATED CATH CULTURE IND; GLUCOSE,URINE NEG (NEG); HYALINE CAST, URINE 2 /lpf (RARE); KETONE, URINE NEG (NEG); MUCUS URINE FEW /lpf (OCC); NITRITE,URINE NEG (NEG); SQUAMOUS EPITHELIAL CELL URINE 1 /hpf (0-5); TRANSITIONAL EPI CELLS, URINE <1 /hpf; URINE COLOR YELLOW (YELLW/STRAW)
[2017-03-28 14:01] LABS: AUTOMATED NEUTROPHIL # 6.8 TH/MM3 (1.8-7.7); BASOPHIL # 0.1 TH/MM3 (0-0.2); BASOPHIL % 0.7 % (0.0-2.0); EOSINOPHIL # 0.1 TH/MM3 (0-0.4); EOSINOPHIL % 1.3 % (0.0-4.0); HEMATOCRIT 42.1 % (35.0-46.0); HEMO FLAGS DIFF FINAL; LYMPH % 19.5 % (9.0-44.0); LYMPHOCYTE # 1.9 TH/MM3 (1.0-4.8); MEAN CELL VOLUME 86.3 FL (80.0-100.0); MEAN CORPUSCULAR HEMOGLOBIN 29.2 PG (27.0-34.0); MEAN CORPUSCULAR HGB CONC 33.8 % (32.0-36.0); MONO % 8.4 % (0.0-8.0); NEUT % 70.1 % (16.0-70.0); PLATELET COUNT 300 TH/MM3 (150-450); RED BLOOD COUNT 4.88 MIL/MM3 (4.00-5.30); RED CELL DISTRIBUTION WIDTH 14.1 % (11.6-17.2); WHITE BLOOD COUNT 9.7 TH/MM3 (4.0-11.0)
[2017-03-28 14:06] LABS: APTT (PATIENT) 31.2 SEC (24.3-30.1); INTERNATIONAL NORMALIZED RATIO 1.1 RATIO; PROTHROMBIN TIME - PATIENT 12.1 SEC (9.8-11.6)
--- NOTE | 2017-03-28 14:07 | RADRPT ---
EXAM DATE/TIME: 03/28/2017 13:26 [place] COMPARISON: CHEST SINGLE AP, March 10, 2017, 13:47. INDICATIONS : Syncope. MEDICAL HISTORY : Hypertension. A-fib SURGICAL HISTORY : Appendectomy. Tonsillectomy. ENCOUNTER: Initial ACUITY: 1 day PAIN SCORE: 0/10 LOCATION: Bilateral chest FINDINGS: Portable AP view of the chest demonstrates a normal-sized cardiac silhouette. No effusion, consolidat ion, or pneumothorax is visualized. The bones and soft tissues demonstrate no acute abnormality. Mult iple densities overlie the patient. There is osteoarthritis of the glenohumeral joints bilaterally. CONCLUSION: No acute cardiopulmonary abnormality is identified. Rob Crawford MD on March 28, 2017 at 14:04 Board Certified Radiologist. This report was verified electronically.
[2017-03-28] MEDS ORDERED: SODIUM CHLOR 0.9% 1000 ML INJ 1,000 ML IV ONE (14:30)
[2017-03-28 14:36] LABS: ALT (GPT) 24 U/L (10-53)
[2017-03-28 14:39] LABS: ANION GAP 15 MEQ/L (5-15); AST (GOT) 22 U/L (15-37); BICARBONATE 21.1 MEQ/L (21.0-32.0); BLOOD UREA NITROGEN 16 MG/DL (7-18); CHLORIDE 104 MEQ/L (98-107); GLOMERULAR FILTRATION RATE 48 ML/MIN (>89); POTASSIUM 4.4 MEQ/L (3.5-5.1); SODIUM (NA) 140 MEQ/L (136-145); TOTAL BILIRUBIN ADULT 0.6 MG/DL (0.2-1.0)
[2017-03-28 14:40] LABS: ALKALINE PHOSPHATASE 136 U/L (45-117); CREATINE KINASE 43 U/L (26-192)
[2017-03-28] MEDS ORDERED: cefTRIAXone INJ 1,000 MG in SODIUM CHLORIDE 0.9% INJ 100 ML IV ONE (15:00)
[2017-03-28 15:56] LABS: LACTIC ACID GHOST NOT REPORTABLE
[2017-03-28] MEDS ORDERED: QUET1TAB7 PO (16:45)
[2017-03-28] MEDS ORDERED: TIMO0.5S30 EACH EYE (16:45)
[2017-03-28] MEDS ORDERED: APIX5TAB PO (16:50)
[2017-03-28] MEDS ORDERED: ESCI5TAB PO (16:51)
[2017-03-28] MEDS ORDERED: VITA100018 PO (17:02)
[2017-03-28] MEDS ORDERED: SENNOSIDES 8.6 MG TAB PO PRN (18:30)
[2017-03-28] MEDS ORDERED: LACTULOSE SYRUP 20 GM/30 ML CUP PO PRN (18:30)
[2017-03-28] MEDS ORDERED: MAGNESIUM HYDROXIDE SUSP 30 ML CUP PO PRN (18:30)
[2017-03-28] MEDS ORDERED: NALOXONE HCL 0.4 MG/ML AMP IV PRN (18:30)
[2017-03-28] MEDS ORDERED: BISACODYL 10 MG SUPP RECTAL PRN (18:30)
[2017-03-28] MEDS ORDERED: ONDANSETRON HCL 4 MG/2 ML VIAL IVP PRN (18:30)
[2017-03-28] MEDS ORDERED: SODIUM CHLORIDE 0.9% FLUSH 10 ML FLUSH IV FLUSH PRN (18:30)
[2017-03-28 20:00] VITALS: BP 154/85; PULSE 65; PULSE 85; RESP 16; O2SAT 97
[2017-03-28 20:17] VITALS: BP 140/85; PULSE 108; RESP 16; TEMP 97.6; O2SAT 96
[2017-03-28] MEDS ORDERED: PILL SPLITTER OTHER PRN (20:30)
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
[2017-03-28] MEDS: SODIUM CHLORIDE 0.9% FLUSH 10 ML FLUSH IV FLUSH SCH (21:00)
[2017-03-28] MEDS: DOCUSATE SODIUM 50 MG/SENNA 8.6 MG TAB PO SCH (21:00)
[2017-03-28] MEDS: QUEtiapine FUMARATE 25 MG TAB PO SCH (21:15)
[2017-03-28] MEDS: METOPROLOL TARTRATE 25 MG TAB PO SCH (21:15)
[2017-03-28 23:50] VITALS: BP 129/85; PULSE 118; RESP 20; TEMP 96.2
[2017-03-28 23:59] VITALS: PULSE 119
[2017-03-29] VITALS (21 sets, daily range): BP systolic 95–209; BP diastolic 62–127; PULSE 82–139; RESP 18–24; TEMP 97.1–98.7; O2SAT 87–99
[2017-03-29] MEDS: D5-1/2 NS + KCL 20 MEQ INJ 1,000 ML IV SCH ×4 (02:54→18:55)
[2017-03-29] MEDS: LEVOTHYROXINE SODIUM 75 MCG TAB PO SCH (05:56)
[2017-03-29 08:16] LABS: AUTOMATED NEUTROPHIL # 5.1 TH/MM3 (1.8-7.7); BASOPHIL # 0.1 TH/MM3 (0-0.2); BASOPHIL % 0.7 % (0.0-2.0); EOSINOPHIL # 0.2 TH/MM3 (0-0.4); EOSINOPHIL % 2.3 % (0.0-4.0); HEMATOCRIT 41.6 % (35.0-46.0); HEMO FLAGS DIFF FINAL; LYMPHOCYTE # 2.5 TH/MM3 (1.0-4.8); MEAN CELL VOLUME 86.9 FL (80.0-100.0); MEAN CORPUSCULAR HGB CONC 33.4 % (32.0-36.0); MONO % 7.7 % (0.0-8.0); NEUT % 60.3 % (16.0-70.0); PLATELET COUNT 332 TH/MM3 (150-450); RED BLOOD COUNT 4.79 MIL/MM3 (4.00-5.30); RED CELL DISTRIBUTION WIDTH 14.4 % (11.6-17.2); WHITE BLOOD COUNT 8.5 TH/MM3 (4.0-11.0)
--- NOTE | 2017-03-29 08:22 | HHI.PR ---
Subjective Remarks Follow up for UTI, inability to care for self. The patient is currently awake, alert, oriented to self only; at baseline. She denies any abdominal pain or dysuria however nursing staff reporting 2-3 episodes of vomit with clear-yellow emesis this morning and 3 loose stools overnight. No fevers documented. The patient states she is hungry and wants to eat. The patient states she was doing very well at [facility] and she wants to go back. She admits that she wasn't eating well or taking her medications since she's been home. Objective Vitals Vital Signs Date Time Temp Pulse Resp B/P Pulse Ox O2 Delivery O2 Flow Rate FiO2 03/29/17 07:55 98.6 85 18 103/81 95 03/29/17 07:11 98.5 96 18 95/84 99 03/29/17 03:49 97.1 101 20 139/90 96 03/28/17 23:59 119 03/28/17 23:50 96.2 118 20 129/85 03/28/17 20:17 97.6 108 16 140/85 96 03/28/17 20:00 65 16 154/85 97 Room Air 03/28/17 12:50 100 03/28/17 12:32 98.9 56 14 160/79 100 I/O 03/28/17 03/28/17 03/28/17 03/29/17 03/29/17 03/29/17 07:00 15:00 23:00 07:00 15:00 23:00 Intake Total 420 ml 350 ml Balance 420 ml 350 ml Intake Oral 420 ml IV Total 350 ml # Voids 1 Result Diagram: 03/29/17 0754 03/28/17 1320 Imaging Last Impressions Chest X-Ray 03/28/17 0000 Signed Impressions: Service Date/Time: Tuesday, March 28, 2017 13:26 - CONCLUSION: No acute cardiopulmonary abnormality is identified. Rob Crawford MD Objective Remarks GENERAL: Well-nourished, well-developed pleasant confused elderly female patient in [facility]. SKIN: Warm and dry. No rash. HEENT: Normocephalic. Atraumatic.Pupils equal and round. Mucous membranes pink and moist. NECK: Supple. Trachea midline. CARDIOVASCULAR: Irregular rate and rhythm. S1, S2 noted. No murmur appreciated. RESPIRATORY: No accessory muscle use. Clear to auscultation. Breath sounds equal bilaterally. GASTROINTESTINAL: Abdomen soft, non-tender, nondistended. Normoactive bowel sounds x4. MUSCULOSKELETAL: No obvious deformities. Extremities without clubbing, cyanosis , or edema. NEUROLOGICAL: Awake and alert, oriented to self only. No obvious cranial nerve deficits. Motor grossly within normal limits.Normal speech. PSYCHIATRIC: Appropriate mood and affect; insight and judgment limited. Medications and IVs Current Medications Medications (Trade) Dose Ordered Sig/Nicholas Route Start Time Stop Time Status Last Admin (D5-08/29 NS + KCl 20 Meq Inj) 1,000 ml @ 100 mls/hr Q10H IV 03/28/17 18:18 03/29/17 02:54 (NS Flush) 2 ml UNSCH PRN IV FLUSH 03/28/17 18:30 (NS Flush) 2 ml BID IV FLUSH 03/28/17 21:00 03/29/17 08:57 (Zofran Inj) 4 mg Q6H PRN IVP 03/28/17 18:30 03/29/17 08:55 (Narcan Inj) 0.4 mg UNSCH PRN IV 03/28/17 18:30 (Rose Mary-Colace) 1 tab BID PO 03/28/17 21:00 (Milk Of Magnesia Liq) 30 ml Q12H PRN PO 03/28/17 18:30 (Senokot) 17.2 mg Q12H PRN PO 03/28/17 18:30 (Dulcolax Supp) 10 mg DAILY PRN RECTAL 03/28/17 18:30 Lactulose 30 ml 30 ml DAILY PRN PO 03/28/17 18:30 (Rocephin Inj/NS Inj) 100 ml @ 200 mls/hr Q24H IV 03/29/17 16:00 (Eliquis) 5 mg DAILY PO 03/29/17 09:00 03/29/17 08:55 (Lexapro) 5 mg DAILY PO 03/29/17 09:00 03/29/17 08:56 (Synthroid) 75 mcg DAILY@0600 PO 03/29/17 06:00 03/29/17 05:56 (Prinivil) 20 mg DAILY PO 03/29/17 09:00 (Namenda) 5 mg DAILY PO 03/29/17 09:00 03/29/17 08:55 (Lopressor) 25 mg Q12HR PO 03/28/17 21:00 03/29/17 08:55 (SEROquel) 25 mg BID PO 03/28/17 21:00 03/29/17 08:55 (Pill Splitter) 1 ea UNSCH PRN OTHER 03/28/17 20:30 (Protonix) 40 mg DAILY PO 03/29/17 09:00 03/29/17 08:55 A/P Problem List: (1) Dementia ICD Code: F03.90 Status: Acute (2) Urinary tract infection ICD Code: N39.0 Status: Acute (3) Atrial fibrillation ICD Code: I48.91 Status: Acute (4) Nausea & vomiting ICD Code: R11.2 Status: Acute Assessment and Plan 82-year-old female with history of dementia, afib on Eliquis, HTN, Hypothyroidism, Osteoarthrits, presents from home for inability to care for self , poor oral intake, not taking meds. The patient was recently hospitalized for encephalopathy with UTI, dementia; discharge on 03/13 to [facility]; then released to home on 03/21. Inability to Care for Self, Difficulty w/ADLs: suspect secondary to advanced dementia. Needs placement. -case management consulted to assist with placement -PT consulted UTI: UA with small leuks/bacteria. Previous urine culture 03/10 with pansensitive UTI. Patient reportedly completed treatment with Rocephin then Cipro. -Continue on IV Rocephin for now -monitor urine culture Nausea/Vomiting & Loose Stools: with recent antibiotics use, also recently started on Lexapro; likely contributing. -discontinue Lexapro -check abdominal KUB -check stool cultures, Cdiff -start lactinex if Cdiff negative -continue supportive treatment with IVF, antiemetics prn Dementia w/Agitation: agitation occurs mostly at night; patient removing IV and getting out of bed without assistance -continue sitter -continue seroquel 25mg bid, may increase if needed -haldol IM prn -psychiatry consulted for reported suicidal ideations; patient denies; Dr. Heard cleared from psychiatric standpoint -discussed with Dr. Heard; little benefit with small dose of Lexapro and since likely contributing to nausea/vomiting; will discontinue Lexapro Atrial Fibrillation: chronic, rate increases to low 100s while agitated and while vomiting; but returns to 80s while at rest -continue patient's Eliquis and Metoprolol -patient refuses to wear telemetry Hypertension: chronic, BP fairly well controlled -hold patient's lisinopril today with borderline hypotension (95/84) -decrease lisinopril from 20mg to 10mg tomorrow with hold parameters -monitor BP, adjust antihypertensives as needed Hypothyroidism: chronic, stable -continue patient's synthroid DVT Prophylaxis: on Eliquis ADDENDUM: 1525hrs: C.difficile is positive, start on Flagyl 500mg q8h. Also patient's SBP elevated over 200 and HR elevated in the 120s. Will restart patient's lisinopril , give additional dose of metoprolol 25mg po, and increase her metoprolol to 50mg bid. Added clonidine prn. Will attempt to place telemetry on this patient however may be difficult, patient has a history of not tolerating telemetry. 1645hrs: Patient HR now in the 150s-160s consistently, telemetry consistent with atrial fibrillation with RVR. Placed orders for stat transfer to [facility] for IV Cardizem bolus x1 and start IV Cardizem drip. Discussed with Dr. oMntoya, agrees with plan. Discussed with Lolly HE and Damaris HE. I spent 35 minutes [id number] with the patient or on the gipson discussing the patient's disposition, prognosis, and plan of care with her caregivers. Over half the time spent was devoted to counseling the patient regarding placement in coordinating care with nurse, charge nurse, caregivers, and case management. Problem Qualifiers (1) Dementia: Qualified Code: F03.91 - Dementia with behavioral disturbance, unspecified dementia type (2) Urinary tract infection: Qualified Code: N39.0 - Urinary tract infection without hematuria, site unspecified Tabitha Shrestha PA-C Mar 29, 2017 8:22 am
[2017-03-29 08:46] LABS: ALKALINE PHOSPHATASE 126 U/L (45-117); ALT (GPT) 20 U/L (10-53); ANION GAP 8 MEQ/L (5-15); AST (GOT) 18 U/L (15-37); BICARBONATE 24.8 MEQ/L (21.0-32.0); BLOOD UREA NITROGEN 14 MG/DL (7-18); CHLORIDE 106 MEQ/L (98-107); GLOMERULAR FILTRATION RATE 65 ML/MIN (>89); POTASSIUM 4.2 MEQ/L (3.5-5.1); SODIUM (NA) 139 MEQ/L (136-145); TOTAL BILIRUBIN ADULT 0.5 MG/DL (0.2-1.0)
[2017-03-29] MEDS: PANTOPRAZOLE SOD 40 MG DELAYED RELEASE TAB PO SCH (08:55)
[2017-03-29] MEDS: METOPROLOL TARTRATE 25 MG TAB PO SCH (08:55)
[2017-03-29] MEDS: QUEtiapine FUMARATE 25 MG TAB PO SCH ×2 (08:55→20:08)
[2017-03-29] MEDS: MEMANTINE HCL 5 MG TAB PO SCH (08:55)
[2017-03-29] MEDS: APIXABAN 5 MG TABLET PO SCH (08:55)
[2017-03-29] MEDS: SODIUM CHLORIDE 0.9% FLUSH 10 ML FLUSH IV FLUSH SCH ×2 (08:57→20:09)
[2017-03-29] MEDS: DOCUSATE SODIUM 50 MG/SENNA 8.6 MG TAB PO SCH ×2 (08:57→20:08)
[2017-03-29] MEDS ORDERED: LISINOPRIL 20 MG TAB PO SCH (09:00)
[2017-03-29] MEDS ORDERED: ESCITALOPRAM OXALATE 10 MG TAB PO SCH (09:00)
--- NOTE | 2017-03-29 09:56 | RADRPT ---
EXAM DATE/TIME: 03/29/2017 09:42 [place] COMPARISON: No previous studies available for comparison. INDICATIONS : Ileus. Nausea. MEDICAL HISTORY : Hypertension. Atrial fibrilation. SURGICAL HISTORY : Appendectomy. Tonsillectomy. ENCOUNTER: Initial ACUITY: 1 day PAIN SCORE: 5/10 LOCATION: middle uuper abdomen FINDINGS: There are several loops of air-filled nondistended small bowel in the left upper quadrant. Large amou nt of stool is noted in the rectum. No gross free air or pneumatosis. No abnormal calcifications. Ext ensive degenerative changes of the hips bilaterally and lower lumbar spine degenerative spondylosis. CONCLUSION: 1. Nondistended air-filled loops of small bowel in the left upper quadrant may reflect developing mil d adynamic ileus. 2. Large amount of stool in the rectum. Raheem Chandler MD on March 29, 2017 at 9:52 Board Certified Radiologist. This report was verified electronically.
[2017-03-29] MEDS ORDERED: ENALAPRILAT 1.25 MG/ML VIAL IV PUSH ONE (11:30)
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
[2017-03-29 13:51] LABS: C. DIFF EPI 027 PRESUMPTIVE POSITIVE (NEGATIVE); C. DIFF TOXIN PCR POSITIVE (NEGATIVE)
[2017-03-29] MEDS ORDERED: cloNIDine HCL 0.1 MG TAB PO PRN (15:30)
[2017-03-29] MEDS ORDERED: LISINOPRIL 10 MG TAB PO ONE (15:30)
[2017-03-29] MEDS ORDERED: METOPROLOL TARTRATE 25 MG TAB PO ONE (15:45)
[2017-03-29] MEDS: cefTRIAXone INJ 1,000 MG in SODIUM CHLORIDE 0.9% INJ 100 ML IV SCH (16:09)
[2017-03-29] MEDS: metroNIDAZOLE 500 MG TAB PO SCH (16:09)
[2017-03-29] MEDS ORDERED: DILTIAZEM HCL 25 MG/5 ML VIAL IVP ONE (16:45)
[2017-03-29] MEDS ORDERED: DILTIAZEM INJ 125 MG in SODIUM CHLORIDE 0.9% INJ 100 ML IV SCH (16:45)
[2017-03-29] MEDS: METOPROLOL TARTRATE 50 MG TAB PO SCH (20:08)
[2017-03-30] VITALS (28 sets, daily range): BP systolic 94–145; BP diastolic 43–86; PULSE 57–90; RESP 16–19; TEMP 97.6–98.2; O2SAT 96–100
[2017-03-30] MEDS: metroNIDAZOLE 500 MG TAB PO SCH ×3 (02:06→17:31)
[2017-03-30] MEDS: LEVOTHYROXINE SODIUM 75 MCG TAB PO SCH (06:00)
[2017-03-30 06:53] LABS: BICARBONATE 22.3 MEQ/L (21.0-32.0); POTASSIUM 3.9 MEQ/L (3.5-5.1)
[2017-03-30] MEDS ORDERED: LISINOPRIL 10 MG TAB PO SCH (09:00)
[2017-03-30] MEDS: SODIUM CHLORIDE 0.9% FLUSH 10 ML FLUSH IV FLUSH SCH ×2 (09:00→21:49)
[2017-03-30] MEDS: DOCUSATE SODIUM 50 MG/SENNA 8.6 MG TAB PO SCH ×2 (09:17→21:49)
[2017-03-30] MEDS: METOPROLOL TARTRATE 50 MG TAB PO SCH ×2 (09:18→21:49)
[2017-03-30] MEDS: PANTOPRAZOLE SOD 40 MG DELAYED RELEASE TAB PO SCH (09:18)
[2017-03-30] MEDS: LISINOPRIL 10 MG TAB PO SCH (09:18)
[2017-03-30] MEDS: APIXABAN 5 MG TABLET PO SCH (09:18)
[2017-03-30] MEDS: QUEtiapine FUMARATE 25 MG TAB PO SCH ×2 (09:18→21:48)
[2017-03-30] MEDS: D5-1/2 NS + KCL 20 MEQ INJ 1,000 ML IV SCH (10:18)
[2017-03-30] MEDS: MEMANTINE HCL 5 MG TAB PO SCH (10:48)
--- NOTE | 2017-03-30 12:36 | HHI.PR ---
Subjective Remarks sitting on the chair with no distress. denies pain,chest pain, sob. no fever. sitter at the bedside. Objective Vitals Vital Signs Date Time Temp Pulse Resp B/P Pulse Ox O2 Delivery O2 Flow Rate FiO2 03/30/17 10:00 86 03/30/17 09:00 80 03/30/17 08:00 81 03/30/17 07:06 97.6 73 19 136/81 98 03/30/17 07:06 79 03/30/17 06:00 75 03/30/17 05:00 82 03/30/17 04:46 98.2 57 16 125/73 96 03/30/17 04:00 71 03/30/17 03:00 89 03/30/17 02:00 70 03/30/17 01:00 66 03/30/17 00:09 98.1 64 16 94/43 98 03/30/17 00:00 64 03/29/17 23:00 82 03/29/17 22:00 84 03/29/17 21:00 90 03/29/17 20:00 98 03/29/17 19:58 97.9 103 18 173/81 97 03/29/17 19:00 92 03/29/17 18:00 108 03/29/17 17:56 90 03/29/17 17:42 98.7 92 18 155/102 98 03/29/17 17:11 137/62 03/29/17 17:05 194/100 03/29/17 16:25 187/116 03/29/17 15:21 97.5 139 20 209/127 96 03/29/17 12:33 150/81 I/O 03/29/17 03/29/17 03/29/17 03/30/17 03/30/17 03/30/17 07:00 15:00 23:00 07:00 15:00 23:00 Intake Total 350 ml 1440 ml Output Total 250 ml Balance 350 ml 1190 ml Intake Oral 240 ml IV Total 350 ml 1200 ml Output Urine Total 250 ml Stool Total 0 ml # Voids 1 2 Result Diagram: 03/29/17 0754 03/30/17 0545 Imaging Last Impressions Abdomen X-Ray 03/29/17 0000 Signed Impressions: Service Date/Time: Wednesday, March 29, 2017 09:42 - CONCLUSION: 1. Nondistended air-filled loops of small bowel in the left upper quadrant may reflect developing mild adynamic ileus. 2. Large amount of stool in the rectum. Raheem Chandler MD Chest X-Ray 03/28/17 0000 Signed Impressions: Service Date/Time: Tuesday, March 28, 2017 13:26 - CONCLUSION: No acute cardiopulmonary abnormality is identified. Rob Crawford MD Objective Remarks GENERAL: This is a well-nourished, well-developed patient, in no apparent distress. CARDIOVASCULAR: Regular rate and regular rhythm without murmurs, gallops, or rubs. RESPIRATORY: Clear to auscultation. Breath sounds equal bilaterally. No wheezes , rales, or rhonchi. GASTROINTESTINAL: Abdomen soft, non-tender, nondistended. Normal, active bowel sounds MUSCULOSKELETAL: Extremities without clubbing, cyanosis, or edema. NEURO: Awake and alert. Medications and IVs Current Medications IV Flush (NS Flush) 2 ml UNSCH PRN IV FLUSH FLUSH AFTER USING IV ACCESS; Start 03/28/17 at 12:45; Stop 03/28/17 at 20:18; Status DC Haloperidol Lactate 5 mg 5 mg ONCE ONCE IM Last administered on 03/28/17 12:54 ; Start 03/28/17 at 12:45; Stop 03/28/17 at 12:47; Status DC Sodium Chloride 1,000 ml @ 999 mls/hr BOLUS ONCE IV Last administered on 14:52; Start 03/28/17 at 14:30; Stop 03/28/17 at 15:30; Status DC Ceftriaxone Sodium 1000 mg/ Sodium Chloride 100 ml @ 200 mls/hr ONCE ONCE IV Last administered on 03/28/17 15:31; Start 03/28/17 at 15:00; Stop 03/28/17 at 15: 29; Status DC Potassium Chloride/Dextrose/ Sod Cl (D5-1/2 NS + KCl 20 Meq Inj) 1,000 ml @ 100 mls/hr Q10H IV Last administered on 03/30/17 10:18; Start 03/28/17 at 18:18 Sodium Chloride (NS Flush) 2 ml UNSCH PRN IV FLUSH FLUSH AFTER USING IV ACCESS ; Start 03/28/17 at 18:30 Sodium Chloride (NS Flush) 2 ml BID IV FLUSH Last administered on 03/29/17 08: 57; Start 03/28/17 at 21:00 Ondansetron HCl (Zofran Inj) 4 mg Q6H PRN IVP NAUSEA OR VOMITING Last administered on 03/29/17 08:55; Start 03/28/17 at 18:30 Naloxone HCl (Narcan Inj) 0.4 mg UNSCH PRN IV SEE LABEL COMMENTS; Start at 18:30 Senna/Docusate Sodium (Rose Mary-Colace) 1 tab BID PO Last administered on 03/30/17 09:17; Start 03/28/17 at 21:00 Magnesium Hydroxide (Milk Of Magnesia Liq) 30 ml Q12H PRN PO MILD - MODERATE CONSTIPATION; Start 03/28/17 at 18:30 Sennosides (Senokot) 17.2 mg Q12H PRN PO MODERATE - SEVERE CONSTIPATION; Start 03/28/17 at 18:30 Bisacodyl (Dulcolax Supp) 10 mg DAILY PRN RECTAL SEVERE CONSITIPATION; Start at 18:30 Lactulose 30 ml 30 ml DAILY PRN PO SEVERE CONSITIPATION; Start 03/28/17 at 18:30 Ceftriaxone Sodium/Sodium Chloride (Rocephin Inj/NS Inj) 100 ml @ 200 mls/hr Q24H IV Last administered on 03/29/17 16:09; Start 03/29/17 at 16:00 Apixaban (Eliquis) 5 mg DAILY PO Last administered on 03/30/17 09:18; Start 03/29/17 at 09:00 Escitalopram Oxalate (Lexapro) 5 mg DAILY PO Last administered on 03/29/17 08: 56; Start 03/29/17 at 09:00; Stop 03/29/17 at 09:57; Status DC Levothyroxine Sodium (Synthroid) 75 mcg DAILY@0600 PO Last administered on 06:00; Start 03/29/17 at 06:00 Lisinopril (Prinivil) 20 mg DAILY PO ; Start 03/29/17 at 09:00; Stop 03/29/17 at 10:31; Status DC Memantine (Namenda) 5 mg DAILY PO Last administered on 03/30/17 10:48; Start at 09:00 Metoprolol Tartrate (Lopressor) 25 mg Q12HR PO Last administered on 03/29/17 08 :55; Start 03/28/17 at 21:00; Stop 03/29/17 at 15:46; Status DC Quetiapine Fumarate (SEROquel) 25 mg BID PO Last administered on 03/30/17 09:18 ; Start 03/28/17 at 21:00 Miscellaneous (Pill Splitter) 1 ea UNSCH PRN OTHER SEE LABEL COMMENTS; Start at 20:30 Pantoprazole Sodium (Protonix) 40 mg DAILY PO Last administered on 03/30/17 09: 18; Start 03/29/17 at 09:00 Lisinopril (Prinivil) 10 mg DAILY PO ; Start 03/30/17 at 09:00; Stop 03/30/17 at 09:00; Status DC Enalaprilat (Vasotec Inj) 1.25 mg ONCE ONCE IV PUSH Last administered on 11:57; Start 03/29/17 at 11:30; Stop 03/29/17 at 11:32; Status DC Lisinopril (Prinivil) 10 mg ONCE ONCE PO Last administered on 03/29/17 16:09; Start 03/29/17 at 15:30; Stop 03/29/17 at 15:35; Status DC Clonidine (Catapres) 0.1 mg Q6H PRN PO SBP> OR = 180, DBP> OR = 100; Start 03/29 at 15:30 Metronidazole (Flagyl) 500 mg Q8H PO Last administered on 03/30/17 08:00; Start 03/29/17 at 16:00; Stop 04/12/17 at 15:59 Lisinopril (Prinivil) 20 mg DAILY PO Last administered on 03/30/17 09:18; Start 03/30/17 at 09:00 Metoprolol Tartrate (Lopressor) 25 mg ONCE ONCE PO Last administered on 16:09; Start 03/29/17 at 15:45; Stop 03/29/17 at 15:48; Status DC Metoprolol Tartrate (Lopressor) 50 mg Q12HR PO Last administered on 03/30/17 09 :18; Start 03/29/17 at 21:00 Diltiazem HCl 15 mg 15 mg ONCE ONCE IVP Last administered on 03/29/17 17:05; Start 03/29/17 at 16:45; Stop 03/29/17 at 16:47; Status DC Diltiazem HCl/ Sodium Chloride (Cardizem Inj/NS Inj) 125 ml @ 1 mls/hr TITRATE IV Last administered on 03/29/17 17:34; Start 03/29/17 at 16:45 A/P Assessment and Plan Inability to Care for Self, Difficulty w/ADLs: suspect secondary to advanced dementia. Needs placement. -case management consulted to assist with placement -PT consulted C- diff colitis- continue Flagyl-will monitor. UTI: UA with small leuks/bacteria. Previous urine culture 03/10 with pansensitive UTI. Patient reportedly completed treatment with Rocephin then Cipro. -Continue on IV Rocephin for now -monitor urine culture Nausea/Vomiting & Loose Stools: with recent antibiotics use, also recently started on Lexapro; likely contributing- now has improved. 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 -haldol IM prn -psychiatry consulted for reported suicidal ideations; patient denies; Dr. Heard cleared from psychiatric standpoint Atrial Fibrillation: chronic, -continue patient's Eliquis and Metoprolol Hypertension: chronic - continue lisinopril and metoprolol Hypothyroidism: chronic, stable -continue patient's synthroid DVT Prophylaxis: on Eliquis Discharge Planning possible dc to SNF in am if stable. d/w the case management. Iron Sheffield MD Mar 30, 2017 12:36
[2017-03-30] MEDS: cefTRIAXone INJ 1,000 MG in SODIUM CHLORIDE 0.9% INJ 100 ML IV SCH (17:32)
[2017-03-31] VITALS (25 sets, daily range): BP systolic 127–164; BP diastolic 71–95; PULSE 51–98; RESP 16–18; TEMP 97.4–98.9; O2SAT 96–99
[2017-03-31] MEDS: metroNIDAZOLE 500 MG TAB PO SCH ×3 (03:58→16:07)
[2017-03-31] MEDS: LISINOPRIL 10 MG TAB PO SCH (10:14)
[2017-03-31] MEDS: PANTOPRAZOLE SOD 40 MG DELAYED RELEASE TAB PO SCH (10:14)
[2017-03-31] MEDS: QUEtiapine FUMARATE 25 MG TAB PO SCH ×2 (10:14→21:08)
[2017-03-31] MEDS: METOPROLOL TARTRATE 50 MG TAB PO SCH ×2 (10:15→21:08)
[2017-03-31] MEDS: MEMANTINE HCL 5 MG TAB PO SCH (10:15)
[2017-03-31] MEDS: SODIUM CHLORIDE 0.9% FLUSH 10 ML FLUSH IV FLUSH SCH ×2 (10:15→21:00)
[2017-03-31] MEDS: APIXABAN 5 MG TABLET PO SCH (10:15)
[2017-03-31] MEDS: DOCUSATE SODIUM 50 MG/SENNA 8.6 MG TAB PO SCH ×2 (10:16→21:00)
--- NOTE | 2017-03-31 10:47 | HHI.PR ---
Subjective Remarks resting comfortably with no distress. denies pain. no fever. had a formed -but soft- BM today. d/w the RN and no acute issues over night. Objective Vitals Vital Signs Date Time Temp Pulse Resp B/P Pulse Ox O2 Delivery O2 Flow Rate FiO2 03/31/17 08:06 97.4 86 16 135/78 99 03/31/17 06:00 98 03/31/17 05:00 95 03/31/17 04:00 51 03/31/17 03:35 98.1 76 16 146/87 99 03/31/17 03:00 82 03/31/17 02:00 82 03/31/17 01:00 82 03/31/17 00:00 84 03/30/17 23:38 97.8 87 16 145/86 98 03/30/17 23:00 74 03/30/17 22:00 72 03/30/17 21:00 72 03/30/17 20:30 97.8 83 16 144/83 99 03/30/17 20:00 70 03/30/17 19:00 70 03/30/17 18:06 68 03/30/17 17:00 90 03/30/17 16:00 59 03/30/17 15:00 60 03/30/17 15:00 97.6 74 18 124/60 97 03/30/17 14:03 73 03/30/17 13:00 70 03/30/17 12:00 80 03/30/17 11:00 97.8 67 18 102/47 100 03/30/17 11:00 73 I/O 03/30/17 03/30/17 03/30/17 03/31/17 03/31/17 03/31/17 07:00 15:00 23:00 07:00 15:00 23:00 Intake Total 1440 ml 290 ml 350 ml Output Total 250 ml 400 ml Balance 1190 ml 290 ml -50 ml Intake Oral 240 ml 240 ml 350 ml IV Total 1200 ml 50 ml Output Urine Total 250 ml 400 ml Stool Total 0 ml 0 ml # Voids 2 3 1 Result Diagram: 03/29/17 0754 03/30/17 0545 Imaging Last Impressions Abdomen X-Ray 03/29/17 0000 Signed Impressions: Service Date/Time: Wednesday, March 29, 2017 09:42 - CONCLUSION: 1. Nondistended air-filled loops of small bowel in the left upper quadrant may reflect developing mild adynamic ileus. 2. Large amount of stool in the rectum. Raheem Chandler MD Chest X-Ray 03/28/17 0000 Signed Impressions: Service Date/Time: Tuesday, March 28, 2017 13:26 - CONCLUSION: No acute cardiopulmonary abnormality is identified. Rob Crawford MD Objective Remarks GENERAL: This is a well-nourished, well-developed patient, in no apparent distress. CARDIOVASCULAR: Regular rate and regular rhythm without murmurs, gallops, or rubs. RESPIRATORY: Clear to auscultation. Breath sounds equal bilaterally. No wheezes , rales, or rhonchi. GASTROINTESTINAL: Abdomen soft, non-tender, nondistended. Normal, active bowel sounds MUSCULOSKELETAL: Extremities without clubbing, cyanosis, or edema. NEURO: Awake and alert. Procedures none Medications and IVs Current Medications IV Flush (NS Flush) 2 ml UNSCH PRN IV FLUSH FLUSH AFTER USING IV ACCESS; Start 03/28/17 at 12:45; Stop 03/28/17 at 20:18; Status DC Haloperidol Lactate 5 mg 5 mg ONCE ONCE IM Last administered on 03/28/17 12:54 ; Start 03/28/17 at 12:45; Stop 03/28/17 at 12:47; Status DC Sodium Chloride 1,000 ml @ 999 mls/hr BOLUS ONCE IV Last administered on 14:52; Start 03/28/17 at 14:30; Stop 03/28/17 at 15:30; Status DC Ceftriaxone Sodium 1000 mg/ Sodium Chloride 100 ml @ 200 mls/hr ONCE ONCE IV Last administered on 03/28/17 15:31; Start 03/28/17 at 15:00; Stop 03/28/17 at 15: 29; Status DC Potassium Chloride/Dextrose/ Sod Cl (D5-1/2 NS + KCl 20 Meq Inj) 1,000 ml @ 100 mls/hr Q10H IV Last administered on 03/30/17 10:18; Start 03/28/17 at 18:18 ; Stop 03/30/17 at 12:37; Status DC Sodium Chloride (NS Flush) 2 ml UNSCH PRN IV FLUSH FLUSH AFTER USING IV ACCESS ; Start 03/28/17 at 18:30 Sodium Chloride (NS Flush) 2 ml BID IV FLUSH Last administered on 03/31/17 10: 15; Start 03/28/17 at 21:00 Ondansetron HCl (Zofran Inj) 4 mg Q6H PRN IVP NAUSEA OR VOMITING Last administered on 03/29/17 08:55; Start 03/28/17 at 18:30 Naloxone HCl (Narcan Inj) 0.4 mg UNSCH PRN IV SEE LABEL COMMENTS; Start at 18:30 Senna/Docusate Sodium (Rose Mary-Colace) 1 tab BID PO Last administered on 03/31/17 10:16; Start 03/28/17 at 21:00 Magnesium Hydroxide (Milk Of Magnesia Liq) 30 ml Q12H PRN PO MILD - MODERATE CONSTIPATION; Start 03/28/17 at 18:30 Sennosides (Senokot) 17.2 mg Q12H PRN PO MODERATE - SEVERE CONSTIPATION; Start 03/28/17 at 18:30 Bisacodyl (Dulcolax Supp) 10 mg DAILY PRN RECTAL SEVERE CONSITIPATION; Start at 18:30 Lactulose 30 ml 30 ml DAILY PRN PO SEVERE CONSITIPATION; Start 03/28/17 at 18:30 Ceftriaxone Sodium/Sodium Chloride (Rocephin Inj/NS Inj) 100 ml @ 200 mls/hr Q24H IV Last administered on 03/30/17 17:32; Start 03/29/17 at 16:00 Apixaban (Eliquis) 5 mg DAILY PO Last administered on 03/31/17 10:15; Start 03/29/17 at 09:00 Escitalopram Oxalate (Lexapro) 5 mg DAILY PO Last administered on 03/29/17 08: 56; Start 03/29/17 at 09:00; Stop 03/29/17 at 09:57; Status DC Levothyroxine Sodium (Synthroid) 75 mcg DAILY@0600 PO Last administered on 06:00; Start 03/29/17 at 06:00 Lisinopril (Prinivil) 20 mg DAILY PO ; Start 03/29/17 at 09:00; Stop 03/29/17 at 10:31; Status DC Memantine (Namenda) 5 mg DAILY PO Last administered on 03/31/17 10:15; Start at 09:00 Metoprolol Tartrate (Lopressor) 25 mg Q12HR PO Last administered on 03/29/17 08 :55; Start 03/28/17 at 21:00; Stop 03/29/17 at 15:46; Status DC Quetiapine Fumarate (SEROquel) 25 mg BID PO Last administered on 03/31/17 10:14 ; Start 03/28/17 at 21:00 Miscellaneous (Pill Splitter) 1 ea UNSCH PRN OTHER SEE LABEL COMMENTS; Start at 20:30 Pantoprazole Sodium (Protonix) 40 mg DAILY PO Last administered on 03/31/17 10: 14; Start 03/29/17 at 09:00 Lisinopril (Prinivil) 10 mg DAILY PO ; Start 03/30/17 at 09:00; Stop 03/30/17 at 09:00; Status DC Enalaprilat (Vasotec Inj) 1.25 mg ONCE ONCE IV PUSH Last administered on 11:57; Start 03/29/17 at 11:30; Stop 03/29/17 at 11:32; Status DC Lisinopril (Prinivil) 10 mg ONCE ONCE PO Last administered on 03/29/17 16:09; Start 03/29/17 at 15:30; Stop 03/29/17 at 15:35; Status DC Clonidine (Catapres) 0.1 mg Q6H PRN PO SBP> OR = 180, DBP> OR = 100; Start 03/29 at 15:30 Metronidazole (Flagyl) 500 mg Q8H PO Last administered on 03/31/17 08:00; Start 03/29/17 at 16:00; Stop 04/12/17 at 15:59 Lisinopril (Prinivil) 20 mg DAILY PO Last administered on 03/31/17 10:14; Start 03/30/17 at 09:00 Metoprolol Tartrate (Lopressor) 25 mg ONCE ONCE PO Last administered on 16:09; Start 03/29/17 at 15:45; Stop 03/29/17 at 15:48; Status DC Metoprolol Tartrate (Lopressor) 50 mg Q12HR PO Last administered on 03/31/17 10 :15; Start 03/29/17 at 21:00 Diltiazem HCl 15 mg 15 mg ONCE ONCE IVP Last administered on 03/29/17 17:05; Start 03/29/17 at 16:45; Stop 03/29/17 at 16:47; Status DC Diltiazem HCl/ Sodium Chloride (Cardizem Inj/NS Inj) 125 ml @ 1 mls/hr TITRATE IV Last administered on 03/29/17 17:34; Start 03/29/17 at 16:45 A/P Assessment and Plan Inability to Care for Self, Difficulty w/ADLs: suspect secondary to advanced dementia. Needs placement. -case management consulted to assist with placement -PT consulted C- diff colitis- improving- continue Flagyl-will monitor. UTI: UC with entercoccus- start macrobid. Nausea/Vomiting & Loose Stools: with recent antibiotics use, also recently started on Lexapro; likely contributing- now has improved. -discontinued Lexapro -continue supportive treatment with IVF, antiemetics prn Dementia w/Agitation: -continue seroquel 25mg bid. -psychiatry consulted for reported suicidal ideations; patient denies; Dr. Heard cleared from psychiatric standpoint Atrial Fibrillation: chronic, -continue patient's Eliquis and Metoprolol Hypertension: chronic - continue lisinopril and metoprolol Hypothyroidism: chronic, stable -continue patient's synthroid DVT Prophylaxis: on Eliquis Discharge Planning dc to SNF when arrangements made. see med list. f/u; pcp. d/w the RN. time spent 31 min. Iron Sheffield MD Mar 31, 2017 10:47
--- NOTE | 2017-03-31 10:50 | HHI.DCPOC ---
Discharge Care Plan Diagnosis: (1) Dementia (2) Atrial fibrillation Your Health Problems Are: Difficulty with ADL Goals to Promote Your Health * To prevent worsening of your condition and complications * To maintain your health at the optimal level Directions to Meet Your Goals Take your medications as prescribed Follow your dietary instruction Follow activity as directed Keep your appointments as scheduled Take your immunizations and boosters as scheduled If your symptoms worsen call your PCP, if no PCP go to Urgent Care Center or Emergency Room Smoking is Dangerous to Your Health. Avoid second hand smoke Call the 24-hour hour crisis hotline for domestic abuse at Iron Sheffield MD Mar 31, 2017 10:50
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
[2017-03-31] MEDS ORDERED: METO25TA3 PO (10:53)
[2017-03-31] MEDS: cefTRIAXone INJ 1,000 MG in SODIUM CHLORIDE 0.9% INJ 100 ML IV SCH (16:08)
[2017-04-01] VITALS (20 sets, daily range): BP systolic 95–144; BP diastolic 57–91; PULSE 76–119; RESP 3–16; TEMP 97.5–98.1; O2SAT 96–99
[2017-04-01] MEDS: metroNIDAZOLE 500 MG TAB PO SCH ×3 (00:07→16:00)
[2017-04-01] MEDS: ACETAMINOPHEN 325 MG TAB PO PRN ×2 (03:39→09:57)
[2017-04-01] MEDS: LEVOTHYROXINE SODIUM 75 MCG TAB PO SCH ×2 (05:30→06:00)
[2017-04-01] MEDS: SODIUM CHLORIDE 0.9% FLUSH 10 ML FLUSH IV FLUSH SCH ×2 (09:00→20:34)
[2017-04-01] MEDS: PANTOPRAZOLE SOD 40 MG DELAYED RELEASE TAB PO SCH (09:00)
--- NOTE | 2017-04-01 09:46 | HHI.PR ---
Subjective Remarks in no acute distress. denies pain. afebrile. had a formed BM last night. d/w the RN. Objective Vitals Vital Signs Date Time Temp Pulse Resp B/P Pulse Ox O2 Delivery O2 Flow Rate FiO2 04/01/17 07:30 97.5 99 16 135/80 98 04/01/17 07:00 88 04/01/17 06:00 92 04/01/17 05:00 78 04/01/17 04:00 96 04/01/17 03:41 97.6 78 3 125/75 98 04/01/17 03:00 97 04/01/17 02:00 95 04/01/17 01:00 76 04/01/17 00:00 109 03/31/17 23:10 98.9 73 18 131/89 97 03/31/17 23:00 94 03/31/17 22:00 88 03/31/17 21:00 84 03/31/17 20:30 97.5 83 18 138/91 96 Manual Cuff/Auscultation 03/31/17 20:00 90 03/31/17 19:00 70 03/31/17 18:33 77 03/31/17 17:10 92 03/31/17 16:13 88 03/31/17 15:48 97.6 92 16 127/71 97 03/31/17 15:48 92 03/31/17 14:04 91 03/31/17 13:00 88 03/31/17 12:21 93 03/31/17 12:21 97.6 93 16 164/95 99 03/31/17 10:40 86 I/O 03/31/17 03/31/17 03/31/17 04/01/17 04/01/17 04/01/17 07:00 15:00 23:00 07:00 15:00 23:00 Intake Total 350 ml 480 ml Output Total 400 ml 225 ml Balance -50 ml 255 ml Intake Oral 350 ml 480 ml IV Total 0 ml Output Urine Total 400 ml 225 ml Stool Total 0 ml # Voids 1 3 # Bowel Movements 1 Result Diagram: 03/29/17 0754 03/30/17 0545 Imaging Last Impressions Abdomen X-Ray 03/29/17 0000 Signed Impressions: Service Date/Time: Wednesday, March 29, 2017 09:42 - CONCLUSION: 1. Nondistended air-filled loops of small bowel in the left upper quadrant may reflect developing mild adynamic ileus. 2. Large amount of stool in the rectum. Raheem Chandler MD Chest X-Ray 03/28/17 0000 Signed Impressions: Service Date/Time: Tuesday, March 28, 2017 13:26 - CONCLUSION: No acute cardiopulmonary abnormality is identified. Rob Crawford MD Objective Remarks GENERAL: This is a well-nourished, well-developed patient, in no apparent distress. CARDIOVASCULAR: Regular rate and regular rhythm without murmurs, gallops, or rubs. RESPIRATORY: Clear to auscultation. Breath sounds equal bilaterally. No wheezes , rales, or rhonchi. GASTROINTESTINAL: Abdomen soft, non-tender, nondistended. Normal, active bowel sounds MUSCULOSKELETAL: Extremities without clubbing, cyanosis, or edema. NEURO: Awake and alert. Procedures none Medications and IVs Current Medications IV Flush (NS Flush) 2 ml UNSCH PRN IV FLUSH FLUSH AFTER USING IV ACCESS; Start 03/28/17 at 12:45; Stop 03/28/17 at 20:18; Status DC Haloperidol Lactate 5 mg 5 mg ONCE ONCE IM Last administered on 03/28/17 12:54 ; Start 03/28/17 at 12:45; Stop 03/28/17 at 12:47; Status DC Sodium Chloride 1,000 ml @ 999 mls/hr BOLUS ONCE IV Last administered on 14:52; Start 03/28/17 at 14:30; Stop 03/28/17 at 15:30; Status DC Ceftriaxone Sodium 1000 mg/ Sodium Chloride 100 ml @ 200 mls/hr ONCE ONCE IV Last administered on 03/28/17 15:31; Start 03/28/17 at 15:00; Stop 03/28/17 at 15: 29; Status DC Potassium Chloride/Dextrose/ Sod Cl (D5-1/2 NS + KCl 20 Meq Inj) 1,000 ml @ 100 mls/hr Q10H IV Last administered on 03/30/17 10:18; Start 03/28/17 at 18:18 ; Stop 03/30/17 at 12:37; Status DC Sodium Chloride (NS Flush) 2 ml UNSCH PRN IV FLUSH FLUSH AFTER USING IV ACCESS ; Start 03/28/17 at 18:30 Sodium Chloride (NS Flush) 2 ml BID IV FLUSH Last administered on 03/31/17 21: 00; Start 03/28/17 at 21:00 Ondansetron HCl (Zofran Inj) 4 mg Q6H PRN IVP NAUSEA OR VOMITING Last administered on 03/29/17 08:55; Start 03/28/17 at 18:30 Naloxone HCl (Narcan Inj) 0.4 mg UNSCH PRN IV SEE LABEL COMMENTS; Start at 18:30 Senna/Docusate Sodium (Rose Mary-Colace) 1 tab BID PO Last administered on 03/31/17 10:16; Start 03/28/17 at 21:00 Magnesium Hydroxide (Milk Of Magnesia Liq) 30 ml Q12H PRN PO MILD - MODERATE CONSTIPATION; Start 03/28/17 at 18:30 Sennosides (Senokot) 17.2 mg Q12H PRN PO MODERATE - SEVERE CONSTIPATION; Start 03/28/17 at 18:30 Bisacodyl (Dulcolax Supp) 10 mg DAILY PRN RECTAL SEVERE CONSITIPATION; Start at 18:30 Lactulose 30 ml 30 ml DAILY PRN PO SEVERE CONSITIPATION; Start 03/28/17 at 18:30 Ceftriaxone Sodium/Sodium Chloride (Rocephin Inj/NS Inj) 100 ml @ 200 mls/hr Q24H IV Last administered on 03/31/17 16:08; Start 03/29/17 at 16:00 Apixaban (Eliquis) 5 mg DAILY PO Last administered on 03/31/17 10:15; Start 03/29/17 at 09:00 Escitalopram Oxalate (Lexapro) 5 mg DAILY PO Last administered on 03/29/17 08: 56; Start 03/29/17 at 09:00; Stop 03/29/17 at 09:57; Status DC Levothyroxine Sodium (Synthroid) 75 mcg DAILY@0600 PO Last administered on 06:00; Start 03/29/17 at 06:00 Lisinopril (Prinivil) 20 mg DAILY PO ; Start 03/29/17 at 09:00; Stop 03/29/17 at 10:31; Status DC Memantine (Namenda) 5 mg DAILY PO Last administered on 03/31/17 10:15; Start at 09:00 Metoprolol Tartrate (Lopressor) 25 mg Q12HR PO Last administered on 03/29/17 08 :55; Start 03/28/17 at 21:00; Stop 03/29/17 at 15:46; Status DC Quetiapine Fumarate (SEROquel) 25 mg BID PO Last administered on 03/31/17 21:08 ; Start 03/28/17 at 21:00 Miscellaneous (Pill Splitter) 1 ea UNSCH PRN OTHER SEE LABEL COMMENTS; Start at 20:30 Pantoprazole Sodium (Protonix) 40 mg DAILY PO Last administered on 03/31/17 10: 14; Start 03/29/17 at 09:00 Lisinopril (Prinivil) 10 mg DAILY PO ; Start 03/30/17 at 09:00; Stop 03/30/17 at 09:00; Status DC Enalaprilat (Vasotec Inj) 1.25 mg ONCE ONCE IV PUSH Last administered on 11:57; Start 03/29/17 at 11:30; Stop 03/29/17 at 11:32; Status DC Lisinopril (Prinivil) 10 mg ONCE ONCE PO Last administered on 03/29/17 16:09; Start 03/29/17 at 15:30; Stop 03/29/17 at 15:35; Status DC Clonidine (Catapres) 0.1 mg Q6H PRN PO SBP> OR = 180, DBP> OR = 100; Start 03/29 at 15:30 Metronidazole (Flagyl) 500 mg Q8H PO Last administered on 04/01/17 00:07; Start 03/29/17 at 16:00; Stop 04/12/17 at 15:59 Lisinopril (Prinivil) 20 mg DAILY PO Last administered on 03/31/17 10:14; Start 03/30/17 at 09:00 Metoprolol Tartrate (Lopressor) 25 mg ONCE ONCE PO Last administered on 16:09; Start 03/29/17 at 15:45; Stop 03/29/17 at 15:48; Status DC Metoprolol Tartrate (Lopressor) 50 mg Q12HR PO Last administered on 03/31/17 21 :08; Start 03/29/17 at 21:00 Diltiazem HCl 15 mg 15 mg ONCE ONCE IVP Last administered on 03/29/17 17:05; Start 03/29/17 at 16:45; Stop 03/29/17 at 16:47; Status DC Diltiazem HCl/ Sodium Chloride (Cardizem Inj/NS Inj) 125 ml @ 1 mls/hr TITRATE IV Last administered on 03/29/17 17:34; Start 03/29/17 at 16:45 Acetaminophen (Tylenol) 650 mg Q4H PRN PO pain 1-3 Last administered on 03:39; Start 04/01/17 at 02:00 A/P Assessment and Plan Inability to Care for Self, Difficulty w/ADLs: suspect secondary to advanced dementia. Needs placement. -case management consulted to assist with placement -PT consulted C- diff colitis- improving- continue Flagyl- UTI: UC with entercoccus- start macrobid. Nausea/Vomiting & Loose Stools: with recent antibiotics use, also recently started on Lexapro; likely contributing- now has improved. -discontinued Lexapro -continue supportive treatment with IVF, antiemetics prn Dementia w/Agitation: -continue seroquel 25mg bid. -psychiatry consulted for reported suicidal ideations; patient denies; Dr. Heard cleared from psychiatric standpoint Atrial Fibrillation: chronic, -continue patient's Eliquis and Metoprolol Hypertension: chronic - continue lisinopril and metoprolol Hypothyroidism: chronic, stable -continue patient's synthroid DVT Prophylaxis: on Eliquis Discharge Planning dc to SNF when arrangements made. see med list. f/u; pcp. d/w the RN. time spent 31 min. Iron Sheffield MD Apr 01, 2017 09:46
[2017-04-01] MEDS: QUEtiapine FUMARATE 25 MG TAB PO SCH ×2 (09:51→20:34)
[2017-04-01] MEDS: APIXABAN 5 MG TABLET PO SCH (09:51)
[2017-04-01] MEDS: DOCUSATE SODIUM 50 MG/SENNA 8.6 MG TAB PO SCH ×2 (09:51→20:34)
[2017-04-01] MEDS: LISINOPRIL 10 MG TAB PO SCH (09:52)
[2017-04-01] MEDS: MEMANTINE HCL 5 MG TAB PO SCH (09:52)
[2017-04-01] MEDS: METOPROLOL TARTRATE 50 MG TAB PO SCH ×2 (09:53→20:34)
[2017-04-01] MEDS: NITROFURANTOIN MONOHYD MACROCR 100 MG CAP PO SCH ×2 (11:59→17:08)
[2017-04-02] MEDS: LEVOTHYROXINE SODIUM 75 MCG TAB PO SCH (05:29)
[2017-04-02 05:43] VITALS: BP 140/68; PULSE 86; RESP 16; TEMP 98.6; O2SAT 99
[2017-04-02] MEDS: metroNIDAZOLE 500 MG TAB PO SCH ×4 (08:00→23:18)
[2017-04-02 08:03] VITALS: BP 154/72; PULSE 100; RESP 18; TEMP 98.4; O2SAT 98
[2017-04-02] MEDS: PANTOPRAZOLE SOD 40 MG DELAYED RELEASE TAB PO SCH (09:00)
[2017-04-02] MEDS: QUEtiapine FUMARATE 25 MG TAB PO SCH (09:00)
[2017-04-02] MEDS: MEMANTINE HCL 5 MG TAB PO SCH (09:00)
[2017-04-02] MEDS: LISINOPRIL 10 MG TAB PO SCH (09:00)
[2017-04-02] MEDS: NITROFURANTOIN MONOHYD MACROCR 100 MG CAP PO SCH ×2 (09:00→16:48)
[2017-04-02] MEDS: DOCUSATE SODIUM 50 MG/SENNA 8.6 MG TAB PO SCH ×2 (09:00→20:51)
[2017-04-02] MEDS: APIXABAN 5 MG TABLET PO SCH (09:00)
[2017-04-02] MEDS: METOPROLOL TARTRATE 50 MG TAB PO SCH ×3 (09:00→21:58)
[2017-04-02] MEDS: SODIUM CHLORIDE 0.9% FLUSH 10 ML FLUSH IV FLUSH SCH ×2 (09:35→20:50)
--- NOTE | 2017-04-02 11:31 | HHI.PR ---
Subjective Remarks in no acute distress. at times agitated. refused some of her medications. d/w the RN. Objective Vitals Vital Signs Date Time Temp Pulse Resp B/P Pulse Ox O2 Delivery O2 Flow Rate FiO2 04/02/17 08:03 98.4 100 18 154/72 98 04/02/17 05:43 98.6 86 16 140/68 99 04/01/17 23:40 97.9 89 16 144/91 98 04/01/17 20:00 98.1 119 16 131/78 99 04/01/17 19:50 97.7 98 16 135/61 99 04/01/17 14:00 97 04/01/17 13:00 90 04/01/17 12:00 93 I/O 04/01/17 04/01/17 04/01/17 04/02/17 04/02/17 04/02/17 07:00 15:00 23:00 07:00 15:00 23:00 Intake Total 480 ml 400 ml Output Total 225 ml Balance 255 ml 400 ml Intake Oral 480 ml 400 ml IV Total 0 ml Output Urine Total 225 ml # Voids 3 3 # Bowel Movements 1 Result Diagram: 03/29/17 0754 03/30/17 0545 Imaging Last Impressions Abdomen X-Ray 03/29/17 0000 Signed Impressions: Service Date/Time: Wednesday, March 29, 2017 09:42 - CONCLUSION: 1. Nondistended air-filled loops of small bowel in the left upper quadrant may reflect developing mild adynamic ileus. 2. Large amount of stool in the rectum. Raheem Chandler MD Chest X-Ray 03/28/17 0000 Signed Impressions: Service Date/Time: Tuesday, March 28, 2017 13:26 - CONCLUSION: No acute cardiopulmonary abnormality is identified. Rob Crawford MD Objective Remarks GENERAL: This is a well-nourished, well-developed patient, in no apparent distress. CARDIOVASCULAR: Regular rate and regular rhythm without murmurs, gallops, or rubs. RESPIRATORY: Clear to auscultation. Breath sounds equal bilaterally. No wheezes , rales, or rhonchi. GASTROINTESTINAL: Abdomen soft, non-tender, nondistended. Normal, active bowel sounds MUSCULOSKELETAL: Extremities without clubbing, cyanosis, or edema. NEURO: Awake and alert. Procedures none Medications and IVs Current Medications IV Flush (NS Flush) 2 ml UNSCH PRN IV FLUSH FLUSH AFTER USING IV ACCESS; Start 03/28/17 at 12:45; Stop 03/28/17 at 20:18; Status DC Haloperidol Lactate 5 mg 5 mg ONCE ONCE IM Last administered on 03/28/17 12:54 ; Start 03/28/17 at 12:45; Stop 03/28/17 at 12:47; Status DC Sodium Chloride 1,000 ml @ 999 mls/hr BOLUS ONCE IV Last administered on 14:52; Start 03/28/17 at 14:30; Stop 03/28/17 at 15:30; Status DC Ceftriaxone Sodium 1000 mg/ Sodium Chloride 100 ml @ 200 mls/hr ONCE ONCE IV Last administered on 03/28/17 15:31; Start 03/28/17 at 15:00; Stop 03/28/17 at 15: 29; Status DC Potassium Chloride/Dextrose/ Sod Cl (D5-1/2 NS + KCl 20 Meq Inj) 1,000 ml @ 100 mls/hr Q10H IV Last administered on 03/30/17 10:18; Start 03/28/17 at 18:18 ; Stop 03/30/17 at 12:37; Status DC Sodium Chloride (NS Flush) 2 ml UNSCH PRN IV FLUSH FLUSH AFTER USING IV ACCESS ; Start 03/28/17 at 18:30 Sodium Chloride (NS Flush) 2 ml BID IV FLUSH Last administered on 04/02/17 09: 35; Start 03/28/17 at 21:00 Ondansetron HCl (Zofran Inj) 4 mg Q6H PRN IVP NAUSEA OR VOMITING Last administered on 03/29/17 08:55; Start 03/28/17 at 18:30 Naloxone HCl (Narcan Inj) 0.4 mg UNSCH PRN IV SEE LABEL COMMENTS; Start at 18:30 Senna/Docusate Sodium (Rose Mary-Colace) 1 tab BID PO Last administered on 04/01/17 09:51; Start 03/28/17 at 21:00 Magnesium Hydroxide (Milk Of Magnesia Liq) 30 ml Q12H PRN PO MILD - MODERATE CONSTIPATION; Start 03/28/17 at 18:30 Sennosides (Senokot) 17.2 mg Q12H PRN PO MODERATE - SEVERE CONSTIPATION; Start 03/28/17 at 18:30 Bisacodyl (Dulcolax Supp) 10 mg DAILY PRN RECTAL SEVERE CONSITIPATION; Start at 18:30 Lactulose 30 ml 30 ml DAILY PRN PO SEVERE CONSITIPATION; Start 03/28/17 at 18:30 Ceftriaxone Sodium/Sodium Chloride (Rocephin Inj/NS Inj) 100 ml @ 200 mls/hr Q24H IV Last administered on 03/31/17 16:08; Start 03/29/17 at 16:00; Stop at 09:49; Status DC Apixaban (Eliquis) 5 mg DAILY PO Last administered on 04/01/17 09:51; Start 03/29/17 at 09:00 Escitalopram Oxalate (Lexapro) 5 mg DAILY PO Last administered on 03/29/17 08: 56; Start 03/29/17 at 09:00; Stop 03/29/17 at 09:57; Status DC Levothyroxine Sodium (Synthroid) 75 mcg DAILY@0600 PO Last administered on 06:00; Start 03/29/17 at 06:00 Lisinopril (Prinivil) 20 mg DAILY PO ; Start 03/29/17 at 09:00; Stop 03/29/17 at 10:31; Status DC Memantine (Namenda) 5 mg DAILY PO Last administered on 04/01/17 09:52; Start at 09:00 Metoprolol Tartrate (Lopressor) 25 mg Q12HR PO Last administered on 03/29/17 08 :55; Start 03/28/17 at 21:00; Stop 03/29/17 at 15:46; Status DC Quetiapine Fumarate (SEROquel) 25 mg BID PO Last administered on 04/01/17 09:51 ; Start 03/28/17 at 21:00 Miscellaneous (Pill Splitter) 1 ea UNSCH PRN OTHER SEE LABEL COMMENTS; Start at 20:30 Pantoprazole Sodium (Protonix) 40 mg DAILY PO Last administered on 04/01/17 09: 00; Start 03/29/17 at 09:00 Lisinopril (Prinivil) 10 mg DAILY PO ; Start 03/30/17 at 09:00; Stop 03/30/17 at 09:00; Status DC Enalaprilat (Vasotec Inj) 1.25 mg ONCE ONCE IV PUSH Last administered on 11:57; Start 03/29/17 at 11:30; Stop 03/29/17 at 11:32; Status DC Lisinopril (Prinivil) 10 mg ONCE ONCE PO Last administered on 03/29/17 16:09; Start 03/29/17 at 15:30; Stop 03/29/17 at 15:35; Status DC Clonidine (Catapres) 0.1 mg Q6H PRN PO SBP> OR = 180, DBP> OR = 100; Start 03/29 at 15:30 Metronidazole (Flagyl) 500 mg Q8H PO Last administered on 04/01/17 09:51; Start 03/29/17 at 16:00; Stop 04/12/17 at 15:59 Lisinopril (Prinivil) 20 mg DAILY PO Last administered on 04/01/17 09:52; Start 03/30/17 at 09:00 Metoprolol Tartrate (Lopressor) 25 mg ONCE ONCE PO Last administered on 16:09; Start 03/29/17 at 15:45; Stop 03/29/17 at 15:48; Status DC Metoprolol Tartrate (Lopressor) 50 mg Q12HR PO Last administered on 04/01/17 09 :53; Start 03/29/17 at 21:00 Diltiazem HCl 15 mg 15 mg ONCE ONCE IVP Last administered on 03/29/17 17:05; Start 03/29/17 at 16:45; Stop 03/29/17 at 16:47; Status DC Diltiazem HCl/ Sodium Chloride (Cardizem Inj/NS Inj) 125 ml @ 1 mls/hr TITRATE IV Last administered on 03/29/17 17:34; Start 03/29/17 at 16:45; Stop 04/01/17 at 09:49; Status DC Acetaminophen (Tylenol) 650 mg Q4H PRN PO pain 1-3 Last administered on 09:57; Start 04/01/17 at 02:00 Nitrofurantoin Macrocrystals (Macrobid) 100 mg BIDPC PO Last administered on 11:59; Start 04/01/17 at 10:00; Stop 04/08/17 at 09:00 A/P Assessment and Plan Inability to Care for Self, Difficulty w/ADLs: suspect secondary to advanced dementia. Needs placement. -case management consulted to assist with placement -PT consulted C- diff colitis- improving- continue Flagyl- UTI: UC with enterococcus- continue macrobid. Nausea/Vomiting & Loose Stools: with recent antibiotics use, also recently started on Lexapro; likely contributing- now has resolved. -discontinued Lexapro -continue supportive treatment with IVF, antiemetics prn Dementia w/Agitation: -continue seroquel 25mg bid. -psychiatry consulted for reported suicidal ideations; patient denies; Dr. Heard cleared from psychiatric standpoint -will consider psych reevaluation with recurrent agitation/ aggressive behavior Atrial Fibrillation: chronic, -continue patient's Eliquis and Metoprolol Hypertension: chronic - continue lisinopril and metoprolol Hypothyroidism: chronic, stable -continue patient's synthroid DVT Prophylaxis: on Eliquis Discharge Planning dc to SNF when arrangements made. Iron Sheffield MD Apr 02, 2017 11:31
[2017-04-02 12:24] VITALS: BP 133/111; PULSE 80; RESP 18; TEMP 97.8; O2SAT 98
[2017-04-02] MEDS ORDERED: diphenhydrAMINE HCL 50 MG/ML VIAL IM ONE (16:45)
[2017-04-02] MEDS ORDERED: HALOPERIDOL LACTATE 5 MG/ML AMP IM ONE (16:45)
[2017-04-02] MEDS ORDERED: diphenhydrAMINE HCL 50 MG/ML VIAL IV PUSH PRN (18:30)
--- NOTE | 2017-04-02 18:36 | HHI.PYPN ---
Subjective Remarks Asked by RN for Dr. Sheffield to evaluate patient. Patient initially seen by Dr. Heard on 03/29, started on Seroquel and Namenda. Patient seen and examined. Chart reviewed. Case d/w RN. Patient reportedly refusing meds and quite agitated overnight. I initially ordered an EKG for QTc but was called again by the RN reporting patient had become severely agitated and was pulling out clumps of hair and eating them. I ordered patient medicated with Haldol 2mg and Benadryl 25mg IM. I have come to the floor to evaluate patient ~1 hour post Haldol. Sitter at the bedside. Patient is paranoid and dysphoric. She is not eating her hair but is restless and trying to get around her room. She refuses to participate in interview. She is quite confused. She gives the location as "up your ass" and the date as "don't have to tell you nothing." No evident side effects from the Haldol. technical service specialist tried to get EKG after my visit but was unsuccessful. Review of Systems ROS Limitations: Poor Historian Except as stated in HPI: all other systems reviewed are Neg Objective Alert: Yes [place]: Person Mood: Agitated, Angry Affect: Restricted Memory Intact: Comment (Seems impaired) Hallucinations: Other (No AVH) Delusions: Yes Delusion Type: Paranoid Suicidal: Ideation (None voiced) Homicidal: Ideation (None voiced) Insight/Judgment Poor Remarks No motor abnormalities noted. Patient refuses physical exam of muscle tone, etc. Paucity of thought noted. Speech terse and angry. Labs Date/Time Procedure Status Source Growth 03/29/17 10:05 - Final Complete Stool Stool NO ENTERIC PATHOGENS DETECTED BY PCR... Labs reviewed Vitals/IOs Vital Signs Date Time Temp Pulse Resp B/P Pulse Ox O2 Delivery O2 Flow Rate FiO2 04/02/17 12:24 97.8 80 18 133/111 98 Intake and Output 04/01/17 04/01/17 04/01/17 07:59 15:59 23:59 Intake Total 480 ml 400 ml Output Total 225 ml Balance 255 ml 400 ml Assessment & Plan Problem List: (1) Delirium due to another medical condition Assessment & Plan: with underlying neurocognitive disorder. ICD Code: F05 Assessment & Plan Patient refusing oral psychotropics. Remains confused. Quite agitated and paranoid, only somewhat improved with single dose of Haldol. Likely would benefit from scheduled Haldol to try to get ahead of agitation. D/c Seroquel; patient refusing orals. D/c Namenda; rarely associated with aggressive behavior and certainly not helping at this point. Start Haldol 1mg TID IV with additional Haldol 2mg q6h IM PRN severe agitation. Benadryl PRN EPS. Obtain EKG when able. Hold Haldol if QTc>>450ms. Continue sitter for behavioral redirection. I will update Dr. Heard; he returns Monday. Thank you for the consultation. Justification for Cont. Inpt. Per primary team. Rogerio Eisenberg MD Apr 02, 2017 18:35
[2017-04-02] MEDS: HALOPERIDOL LACTATE 5 MG/ML AMP IV PUSH SCH (20:50)
[2017-04-02 21:59] VITALS: BP 148/76; PULSE 96; RESP 18; O2SAT 95
[2017-04-02 23:38] VITALS: BP 147/92; PULSE 97; RESP 20; O2SAT 99
[2017-04-03] MEDS: LEVOTHYROXINE SODIUM 75 MCG TAB PO SCH (05:36)
[2017-04-03 06:08] VITALS: BP 154/67; PULSE 88; RESP 18; TEMP 97; O2SAT 98
[2017-04-03 08:00] VITALS: BP 139/86; PULSE 96; RESP 18; TEMP 97.5; O2SAT 96
[2017-04-03] MEDS: metroNIDAZOLE 500 MG TAB PO SCH ×2 (08:20→16:00)
[2017-04-03] MEDS: SODIUM CHLORIDE 0.9% FLUSH 10 ML FLUSH IV FLUSH SCH ×2 (08:20→20:12)
[2017-04-03] MEDS: APIXABAN 5 MG TABLET PO SCH (08:23)
[2017-04-03] MEDS: HALOPERIDOL LACTATE 5 MG/ML AMP IV PUSH SCH ×3 (08:23→19:43)
[2017-04-03] MEDS: DOCUSATE SODIUM 50 MG/SENNA 8.6 MG TAB PO SCH ×2 (08:24→20:04)
[2017-04-03] MEDS: NITROFURANTOIN MONOHYD MACROCR 100 MG CAP PO SCH ×2 (08:24→17:37)
[2017-04-03] MEDS: LISINOPRIL 10 MG TAB PO SCH (08:24)
[2017-04-03] MEDS: METOPROLOL TARTRATE 50 MG TAB PO SCH ×2 (08:24→20:10)
[2017-04-03] MEDS: PANTOPRAZOLE SOD 40 MG DELAYED RELEASE TAB PO SCH (08:25)
--- NOTE | 2017-04-03 08:48 | HHI.PR ---
Subjective Remarks resting comfortably with no distress. no new complaints. sitter at the bedside. Objective Vitals Vital Signs Date Time Temp Pulse Resp B/P Pulse Ox O2 Delivery O2 Flow Rate FiO2 04/03/17 06:08 97.0 88 18 154/67 98 04/03/17 04:00 Room Air 04/03/17 00:00 Room Air 04/02/17 23:38 97 20 147/92 99 04/02/17 21:59 96 18 148/76 95 04/02/17 12:24 97.8 80 18 133/111 98 I/O 04/02/17 04/02/17 04/02/17 04/03/17 04/03/17 04/03/17 07:00 15:00 23:00 07:00 15:00 23:00 Intake Total 240 ml 240 ml 120 ml Balance 240 ml 240 ml 120 ml Intake Oral 240 ml 240 ml 120 ml # Voids 2 2 2 # Bowel Movements 0 0 0 Result Diagram: 03/30/17 0545 Imaging Last Impressions Abdomen X-Ray 03/29/17 0000 Signed Impressions: Service Date/Time: Wednesday, March 29, 2017 09:42 - CONCLUSION: 1. Nondistended air-filled loops of small bowel in the left upper quadrant may reflect developing mild adynamic ileus. 2. Large amount of stool in the rectum. Raheem Chandler MD Chest X-Ray 03/28/17 0000 Signed Impressions: Service Date/Time: Tuesday, March 28, 2017 13:26 - CONCLUSION: No acute cardiopulmonary abnormality is identified. Rob Crawford MD Objective Remarks GENERAL: This is a well-nourished, well-developed patient, in no apparent distress. CARDIOVASCULAR: Regular rate and regular rhythm without murmurs, gallops, or rubs. RESPIRATORY: Clear to auscultation. Breath sounds equal bilaterally. No wheezes , rales, or rhonchi. GASTROINTESTINAL: Abdomen soft, non-tender, nondistended. Normal, active bowel sounds MUSCULOSKELETAL: Extremities without clubbing, cyanosis, or edema. NEURO: Awake and alert. Procedures none Medications and IVs Current Medications IV Flush (NS Flush) 2 ml UNSCH PRN IV FLUSH FLUSH AFTER USING IV ACCESS; Start 03/28/17 at 12:45; Stop 03/28/17 at 20:18; Status DC Haloperidol Lactate 5 mg 5 mg ONCE ONCE IM Last administered on 03/28/17 12:54 ; Start 03/28/17 at 12:45; Stop 03/28/17 at 12:47; Status DC Sodium Chloride 1,000 ml @ 999 mls/hr BOLUS ONCE IV Last administered on 14:52; Start 03/28/17 at 14:30; Stop 03/28/17 at 15:30; Status DC Ceftriaxone Sodium 1000 mg/ Sodium Chloride 100 ml @ 200 mls/hr ONCE ONCE IV Last administered on 03/28/17 15:31; Start 03/28/17 at 15:00; Stop 03/28/17 at 15: 29; Status DC Potassium Chloride/Dextrose/ Sod Cl (D5-08/29 NS + KCl 20 Meq Inj) 1,000 ml @ 100 mls/hr Q10H IV Last administered on 03/30/17 10:18; Start 03/28/17 at 18:18 ; Stop 03/30/17 at 12:37; Status DC Sodium Chloride (NS Flush) 2 ml UNSCH PRN IV FLUSH FLUSH AFTER USING IV ACCESS ; Start 03/28/17 at 18:30 Sodium Chloride (NS Flush) 2 ml BID IV FLUSH Last administered on 04/02/17 09: 35; Start 03/28/17 at 21:00 Ondansetron HCl (Zofran Inj) 4 mg Q6H PRN IVP NAUSEA OR VOMITING Last administered on 03/29/17 08:55; Start 03/28/17 at 18:30 Naloxone HCl (Narcan Inj) 0.4 mg UNSCH PRN IV SEE LABEL COMMENTS; Start at 18:30 Senna/Docusate Sodium (Rose Mary-Colace) 1 tab BID PO Last administered on 04/01/17 09:51; Start 03/28/17 at 21:00 Magnesium Hydroxide (Milk Of Magnesia Liq) 30 ml Q12H PRN PO MILD - MODERATE CONSTIPATION; Start 03/28/17 at 18:30 Sennosides (Senokot) 17.2 mg Q12H PRN PO MODERATE - SEVERE CONSTIPATION; Start 03/28/17 at 18:30 Bisacodyl (Dulcolax Supp) 10 mg DAILY PRN RECTAL SEVERE CONSITIPATION; Start at 18:30 Lactulose 30 ml 30 ml DAILY PRN PO SEVERE CONSITIPATION; Start 03/28/17 at 18:30 Ceftriaxone Sodium/Sodium Chloride (Rocephin Inj/NS Inj) 100 ml @ 200 mls/hr Q24H IV Last administered on 03/31/17 16:08; Start 03/29/17 at 16:00; Stop at 09:49; Status DC Apixaban (Eliquis) 5 mg DAILY PO Last administered on 04/01/17 09:51; Start 03/29/17 at 09:00 Escitalopram Oxalate (Lexapro) 5 mg DAILY PO Last administered on 03/29/17 08: 56; Start 03/29/17 at 09:00; Stop 03/29/17 at 09:57; Status DC Levothyroxine Sodium (Synthroid) 75 mcg DAILY@0600 PO Last administered on 05:36; Start 03/29/17 at 06:00 Lisinopril (Prinivil) 20 mg DAILY PO ; Start 03/29/17 at 09:00; Stop 03/29/17 at 10:31; Status DC Memantine (Namenda) 5 mg DAILY PO Last administered on 04/01/17 09:52; Start at 09:00; Stop 04/02/17 at 18:31; Status DC Metoprolol Tartrate (Lopressor) 25 mg Q12HR PO Last administered on 03/29/17 08 :55; Start 03/28/17 at 21:00; Stop 03/29/17 at 15:46; Status DC Quetiapine Fumarate (SEROquel) 25 mg BID PO Last administered on 04/01/17 09:51 ; Start 03/28/17 at 21:00; Stop 04/02/17 at 18:31; Status DC Miscellaneous (Pill Splitter) 1 ea UNSCH PRN OTHER SEE LABEL COMMENTS; Start at 20:30 Pantoprazole Sodium (Protonix) 40 mg DAILY PO Last administered on 04/01/17 09: 00; Start 03/29/17 at 09:00 Lisinopril (Prinivil) 10 mg DAILY PO ; Start 03/30/17 at 09:00; Stop 03/30/17 at 09:00; Status DC Enalaprilat (Vasotec Inj) 1.25 mg ONCE ONCE IV PUSH Last administered on 11:57; Start 03/29/17 at 11:30; Stop 03/29/17 at 11:32; Status DC Lisinopril (Prinivil) 10 mg ONCE ONCE PO Last administered on 03/29/17 16:09; Start 03/29/17 at 15:30; Stop 03/29/17 at 15:35; Status DC Clonidine (Catapres) 0.1 mg Q6H PRN PO SBP> OR = 180, DBP> OR = 100; Start 03/29 at 15:30 Metronidazole (Flagyl) 500 mg Q8H PO Last administered on 04/01/17 09:51; Start 03/29/17 at 16:00; Stop 04/12/17 at 15:59 Lisinopril (Prinivil) 20 mg DAILY PO Last administered on 04/01/17 09:52; Start 03/30/17 at 09:00 Metoprolol Tartrate (Lopressor) 25 mg ONCE ONCE PO Last administered on 16:09; Start 03/29/17 at 15:45; Stop 03/29/17 at 15:48; Status DC Metoprolol Tartrate (Lopressor) 50 mg Q12HR PO Last administered on 04/02/17 21 :58; Start 03/29/17 at 21:00 Diltiazem HCl 15 mg 15 mg ONCE ONCE IVP Last administered on 03/29/17 17:05; Start 03/29/17 at 16:45; Stop 03/29/17 at 16:47; Status DC Diltiazem HCl/ Sodium Chloride (Cardizem Inj/NS Inj) 125 ml @ 1 mls/hr TITRATE IV Last administered on 03/29/17 17:34; Start 03/29/17 at 16:45; Stop 04/01/17 at 09:49; Status DC Acetaminophen (Tylenol) 650 mg Q4H PRN PO pain 1-3 Last administered on 09:57; Start 04/01/17 at 02:00 Nitrofurantoin Macrocrystals (Macrobid) 100 mg BIDPC PO Last administered on 11:59; Start 04/01/17 at 10:00; Stop 04/08/17 at 09:00 Haloperidol Lactate (Haldol Inj) 2 mg ONCE ONCE IM Last administered on 16:55; Start 04/02/17 at 16:45; Stop 04/02/17 at 16:50; Status DC Diphenhydramine HCl (Benadryl Inj) 25 mg ONCE ONCE IM Last administered on 04/02 16:55; Start 04/02/17 at 16:45; Stop 04/02/17 at 16:50; Status DC Haloperidol Lactate (Haldol Inj) 1 mg DAILY@09,15,21 IV PUSH Last administered on 04/03/17 08:23; Start 04/02/17 at 21:00 Haloperidol Lactate (Haldol Inj) 2 mg Q6H PRN IM Severe agitation; Start at 18:30 Diphenhydramine HCl (Benadryl Inj) 25 mg Q6H PRN IV PUSH EXTRA PYRAMIDAL SYMPTOMS; Start 04/02/17 at 18:30 A/P Assessment and Plan Inability to Care for Self, Difficulty w/ADLs: suspect secondary to advanced dementia. Needs placement. -case management consulted to assist with placement -PT consulted C- diff colitis- improving- continue Flagyl- UTI: UC with enterococcus- continue macrobid. Nausea/Vomiting & Loose Stools: with recent antibiotics use, also recently started on Lexapro; likely contributing- now has resolved. -discontinued Lexapro -continue supportive treatment with IVF, antiemetics prn Dementia w/Agitation: -continue seroquel 25mg bid. -psychiatry consulted for reported suicidal ideations; patient denies; Dr. Heard cleared from psychiatric standpoint Atrial Fibrillation: chronic, -continue patient's Eliquis and Metoprolol Hypertension: chronic - continue lisinopril and metoprolol Hypothyroidism: chronic, stable -continue patient's synthroid DVT Prophylaxis: on Eliquis Discharge Planning dc to SNF when arrangements made. see med list. f/u ; pcp. d/w the case management. Iron Sheffield MD Apr 03, 2017 08:48
[2017-04-03] MEDS ORDERED: METR-1 PO (08:49)
[2017-04-03] MEDS ORDERED: MACR100C2 PO (08:49)
[2017-04-03 12:00] VITALS: BP 140/87; PULSE 90; RESP 18; TEMP 97.3; O2SAT 98
[2017-04-03 15:25] VITALS: BP 138/76; PULSE 89; RESP 18; TEMP 97; O2SAT 96
[2017-04-03 19:47] VITALS: BP 158/88; PULSE 98; RESP 16; TEMP 98.5; O2SAT 99
[2017-04-03] MEDS: ACETAMINOPHEN 325 MG TAB PO PRN (20:10)
[2017-04-03 23:52] VITALS: BP 144/83; PULSE 81; RESP 16; TEMP 97.4; O2SAT 97
[2017-04-04] MEDS: HALOPERIDOL LACTATE 5 MG/ML AMP IM PRN ×3 (00:03→21:04)
[2017-04-04 05:34] VITALS: BP 139/85; PULSE 84; RESP 16; TEMP 97.8; O2SAT 97
[2017-04-04] MEDS: LEVOTHYROXINE SODIUM 75 MCG TAB PO SCH (06:00)
[2017-04-04 08:00] VITALS: BP 128/77; PULSE 83; RESP 20; TEMP 97.9; O2SAT 98
--- NOTE | 2017-04-04 08:09 | HHI.PR ---
Subjective Remarks in no acute distress. d/w the RN and at time agitated. Objective Vitals Vital Signs Date Time Temp Pulse Resp B/P Pulse Ox O2 Delivery O2 Flow Rate FiO2 04/04/17 05:34 97.8 84 16 139/85 97 04/03/17 23:52 97.4 81 16 144/83 97 04/03/17 20:15 Room Air 04/03/17 19:47 98.5 98 16 158/88 99 04/03/17 15:25 97.0 89 18 138/76 96 04/03/17 12:00 97.3 90 18 140/87 98 04/03/17 08:25 Room Air I/O 04/03/17 04/03/17 04/03/17 04/04/17 04/04/17 04/04/17 07:00 15:00 23:00 07:00 15:00 23:00 Intake Total 120 ml 480 ml 480 ml 480 ml Balance 120 ml 480 ml 480 ml 480 ml Intake Oral 120 ml 480 ml 480 ml 480 ml # Voids 2 3 3 3 # Bowel Movements 0 1 1 0 Imaging Last Impressions Abdomen X-Ray 03/29/17 0000 Signed Impressions: Service Date/Time: Wednesday, March 29, 2017 09:42 - CONCLUSION: 1. Nondistended air-filled loops of small bowel in the left upper quadrant may reflect developing mild adynamic ileus. 2. Large amount of stool in the rectum. Raheem Chandler MD Chest X-Ray 03/28/17 0000 Signed Impressions: Service Date/Time: Tuesday, March 28, 2017 13:26 - CONCLUSION: No acute cardiopulmonary abnormality is identified. Rob Crawford MD Objective Remarks GENERAL: This is a well-nourished, well-developed patient, in no apparent distress. CARDIOVASCULAR: Regular rate and regular rhythm without murmurs, gallops, or rubs. RESPIRATORY: Clear to auscultation. Breath sounds equal bilaterally. No wheezes , rales, or rhonchi. GASTROINTESTINAL: Abdomen soft, non-tender, nondistended. Normal, active bowel sounds MUSCULOSKELETAL: Extremities without clubbing, cyanosis, or edema. NEURO: Awake and alert. Procedures none Medications and IVs Current Medications IV Flush (NS Flush) 2 ml UNSCH PRN IV FLUSH FLUSH AFTER USING IV ACCESS; Start 03/28/17 at 12:45; Stop 03/28/17 at 20:18; Status DC Haloperidol Lactate 5 mg 5 mg ONCE ONCE IM Last administered on 03/28/17 12:54 ; Start 03/28/17 at 12:45; Stop 03/28/17 at 12:47; Status DC Sodium Chloride 1,000 ml @ 999 mls/hr BOLUS ONCE IV Last administered on 14:52; Start 03/28/17 at 14:30; Stop 03/28/17 at 15:30; Status DC Ceftriaxone Sodium 1000 mg/ Sodium Chloride 100 ml @ 200 mls/hr ONCE ONCE IV Last administered on 03/28/17 15:31; Start 03/28/17 at 15:00; Stop 03/28/17 at 15: 29; Status DC Potassium Chloride/Dextrose/ Sod Cl (D5-08/29 NS + KCl 20 Meq Inj) 1,000 ml @ 100 mls/hr Q10H IV Last administered on 03/30/17 10:18; Start 03/28/17 at 18:18 ; Stop 03/30/17 at 12:37; Status DC Sodium Chloride (NS Flush) 2 ml UNSCH PRN IV FLUSH FLUSH AFTER USING IV ACCESS ; Start 03/28/17 at 18:30 Sodium Chloride (NS Flush) 2 ml BID IV FLUSH Last administered on 04/02/17 09: 35; Start 03/28/17 at 21:00 Ondansetron HCl (Zofran Inj) 4 mg Q6H PRN IVP NAUSEA OR VOMITING Last administered on 03/29/17 08:55; Start 03/28/17 at 18:30 Naloxone HCl (Narcan Inj) 0.4 mg UNSCH PRN IV SEE LABEL COMMENTS; Start at 18:30 Senna/Docusate Sodium (Rose Mary-Colace) 1 tab BID PO Last administered on 04/01/17 09:51; Start 03/28/17 at 21:00 Magnesium Hydroxide (Milk Of Magnesia Liq) 30 ml Q12H PRN PO MILD - MODERATE CONSTIPATION; Start 03/28/17 at 18:30 Sennosides (Senokot) 17.2 mg Q12H PRN PO MODERATE - SEVERE CONSTIPATION; Start 03/28/17 at 18:30 Bisacodyl (Dulcolax Supp) 10 mg DAILY PRN RECTAL SEVERE CONSITIPATION; Start at 18:30 Lactulose 30 ml 30 ml DAILY PRN PO SEVERE CONSITIPATION; Start 03/28/17 at 18:30 Ceftriaxone Sodium/Sodium Chloride (Rocephin Inj/NS Inj) 100 ml @ 200 mls/hr Q24H IV Last administered on 03/31/17 16:08; Start 03/29/17 at 16:00; Stop at 09:49; Status DC Apixaban (Eliquis) 5 mg DAILY PO Last administered on 04/01/17 09:51; Start 03/29/17 at 09:00 Escitalopram Oxalate (Lexapro) 5 mg DAILY PO Last administered on 03/29/17 08: 56; Start 03/29/17 at 09:00; Stop 03/29/17 at 09:57; Status DC Levothyroxine Sodium (Synthroid) 75 mcg DAILY@0600 PO Last administered on 05:36; Start 03/29/17 at 06:00 Lisinopril (Prinivil) 20 mg DAILY PO ; Start 03/29/17 at 09:00; Stop 03/29/17 at 10:31; Status DC Memantine (Namenda) 5 mg DAILY PO Last administered on 04/01/17 09:52; Start at 09:00; Stop 04/02/17 at 18:31; Status DC Metoprolol Tartrate (Lopressor) 25 mg Q12HR PO Last administered on 03/29/17 08 :55; Start 03/28/17 at 21:00; Stop 03/29/17 at 15:46; Status DC Quetiapine Fumarate (SEROquel) 25 mg BID PO Last administered on 04/01/17 09:51 ; Start 03/28/17 at 21:00; Stop 04/02/17 at 18:31; Status DC Miscellaneous (Pill Splitter) 1 ea UNSCH PRN OTHER SEE LABEL COMMENTS; Start at 20:30 Pantoprazole Sodium (Protonix) 40 mg DAILY PO Last administered on 04/01/17 09: 00; Start 03/29/17 at 09:00 Lisinopril (Prinivil) 10 mg DAILY PO ; Start 03/30/17 at 09:00; Stop 03/30/17 at 09:00; Status DC Enalaprilat (Vasotec Inj) 1.25 mg ONCE ONCE IV PUSH Last administered on 11:57; Start 03/29/17 at 11:30; Stop 03/29/17 at 11:32; Status DC Lisinopril (Prinivil) 10 mg ONCE ONCE PO Last administered on 03/29/17 16:09; Start 03/29/17 at 15:30; Stop 03/29/17 at 15:35; Status DC Clonidine (Catapres) 0.1 mg Q6H PRN PO SBP> OR = 180, DBP> OR = 100; Start 03/29 at 15:30 Metronidazole (Flagyl) 500 mg Q8H PO Last administered on 04/03/17 16:00; Start 03/29/17 at 16:00; Stop 04/12/17 at 15:59 Lisinopril (Prinivil) 20 mg DAILY PO Last administered on 04/01/17 09:52; Start 03/30/17 at 09:00 Metoprolol Tartrate (Lopressor) 25 mg ONCE ONCE PO Last administered on 16:09; Start 03/29/17 at 15:45; Stop 03/29/17 at 15:48; Status DC Metoprolol Tartrate (Lopressor) 50 mg Q12HR PO Last administered on 04/03/17 20 :10; Start 03/29/17 at 21:00 Diltiazem HCl 15 mg 15 mg ONCE ONCE IVP Last administered on 03/29/17 17:05; Start 03/29/17 at 16:45; Stop 03/29/17 at 16:47; Status DC Diltiazem HCl/ Sodium Chloride (Cardizem Inj/NS Inj) 125 ml @ 1 mls/hr TITRATE IV Last administered on 03/29/17 17:34; Start 03/29/17 at 16:45; Stop 04/01/17 at 09:49; Status DC Acetaminophen (Tylenol) 650 mg Q4H PRN PO pain 1-3 Last administered on 20:10; Start 04/01/17 at 02:00 Nitrofurantoin Macrocrystals (Macrobid) 100 mg BIDPC PO Last administered on 17:37; Start 04/01/17 at 10:00; Stop 04/08/17 at 09:00 Haloperidol Lactate (Haldol Inj) 2 mg ONCE ONCE IM Last administered on 16:55; Start 04/02/17 at 16:45; Stop 04/02/17 at 16:50; Status DC Diphenhydramine HCl (Benadryl Inj) 25 mg ONCE ONCE IM Last administered on 04/02 16:55; Start 04/02/17 at 16:45; Stop 04/02/17 at 16:50; Status DC Haloperidol Lactate (Haldol Inj) 1 mg DAILY@09,15,21 IV PUSH Last administered on 04/03/17 08:23; Start 04/02/17 at 21:00 Haloperidol Lactate (Haldol Inj) 2 mg Q6H PRN IM Severe agitation Last administered on 04/04/17 00:03; Start 04/02/17 at 18:30 Diphenhydramine HCl (Benadryl Inj) 25 mg Q6H PRN IV PUSH EXTRA PYRAMIDAL SYMPTOMS; Start 04/02/17 at 18:30 A/P Assessment and Plan Inability to Care for Self, Difficulty w/ADLs: suspect secondary to advanced dementia. Needs placement. -case management consulted to assist with placement -PT consulted C- diff colitis- improving- continue Flagyl- UTI: UC with enterococcus- continue macrobid. Nausea/Vomiting & Loose Stools: with recent antibiotics use, also recently started on Lexapro; likely contributing- now has resolved. -discontinued Lexapro -continue supportive treatment with IVF, antiemetics prn Dementia w/Agitation: -psych follow-up appreciated and started on IM Haldol- Seroquel was discontinued. -psych following- d/w today. Atrial Fibrillation: chronic, -continue patient's Eliquis and Metoprolol Hypertension: chronic - continue lisinopril and metoprolol Hypothyroidism: chronic, stable -continue patient's synthroid DVT Prophylaxis: on Eliquis Discharge Planning dc to SNF when arrangements made. see med list. f/u ; pcp. Iron Sheffield MD Apr 04, 2017 08:09
[2017-04-04] MEDS: HALOPERIDOL LACTATE 5 MG/ML AMP IV PUSH SCH ×3 (09:00→20:58)
[2017-04-04] MEDS: SODIUM CHLORIDE 0.9% FLUSH 10 ML FLUSH IV FLUSH SCH ×2 (09:00→20:58)
[2017-04-04] MEDS: METOPROLOL TARTRATE 50 MG TAB PO SCH ×2 (10:21→21:00)
[2017-04-04] MEDS: PANTOPRAZOLE SOD 40 MG DELAYED RELEASE TAB PO SCH (10:21)
[2017-04-04] MEDS: NITROFURANTOIN MONOHYD MACROCR 100 MG CAP PO SCH ×2 (10:21→16:06)
[2017-04-04] MEDS: LISINOPRIL 10 MG TAB PO SCH (10:21)
[2017-04-04] MEDS: DOCUSATE SODIUM 50 MG/SENNA 8.6 MG TAB PO SCH ×2 (10:21→20:59)
[2017-04-04] MEDS: metroNIDAZOLE 500 MG TAB PO SCH ×4 (10:22→22:27)
[2017-04-04] MEDS: APIXABAN 5 MG TABLET PO SCH (10:22)
[2017-04-04 12:00] VITALS: BP 133/61; PULSE 100; RESP 20; TEMP 99; O2SAT 96
--- NOTE | 2017-04-04 12:23 | HHI.PYPN ---
Subjective Remarks Patient seen for psychiatric reevaluation today, she is calm and cooperative. pleasantly confused and disoriented. Reported Ok mood, denies depression, anhedonia, hopelessness, helplessness, SI, HI, VHA. No agitation or aggressive behavior present or reported. Review of Systems Other No somatic complains Objective Alert: Yes [place]: Person Mood: Agitated, Angry Affect: Restricted Memory Intact: Comment (Seems impaired) Hallucinations: Other (No AVH) Delusions: Yes Delusion Type: Paranoid Suicidal: Ideation (None voiced) Homicidal: Ideation (None voiced) Insight/Judgment fair Vitals/IOs Vital Signs Date Time Temp Pulse Resp B/P Pulse Ox O2 Delivery O2 Flow Rate FiO2 04/04/17 08:00 97.9 83 20 128/77 98 04/04/17 07:00 Room Air Intake and Output 04/03/17 04/03/17 04/04/17 08:00 16:00 00:00 Intake Total 120 ml 480 ml 480 ml Balance 120 ml 480 ml 480 ml Assessment & Plan Problem List: (1) Delirium due to another medical condition Assessment & Plan: Continue current psychotropics, no immediate psychiatric care needed. ICD Code: F05 Assessment & Plan Estimated LOS: days Justification for Cont. Inpt. No indication for psychiatric admission. Charles Heard MD Apr 04, 2017 12:23
[2017-04-04 16:00] VITALS: BP 147/98; PULSE 105; RESP 18; TEMP 99.7; O2SAT 97
[2017-04-04 20:00] VITALS: BP 112/77; PULSE 91; RESP 18; TEMP 99.4; O2SAT 97
[2017-04-05 04:00] VITALS: BP 143/72; PULSE 85; RESP 16; TEMP 98.6; O2SAT 97
[2017-04-05] MEDS: LEVOTHYROXINE SODIUM 75 MCG TAB PO SCH (06:00)
[2017-04-05 08:00] VITALS: BP 143/85; PULSE 88; RESP 18; TEMP 98.2; O2SAT 98
[2017-04-05] MEDS: metroNIDAZOLE 500 MG TAB PO SCH ×3 (08:00→16:00)
[2017-04-05] MEDS: APIXABAN 5 MG TABLET PO SCH ×2 (08:51→09:00)
[2017-04-05] MEDS: NITROFURANTOIN MONOHYD MACROCR 100 MG CAP PO SCH ×3 (08:51→18:00)
[2017-04-05] MEDS: PANTOPRAZOLE SOD 40 MG DELAYED RELEASE TAB PO SCH ×2 (08:51→09:00)
[2017-04-05] MEDS: METOPROLOL TARTRATE 50 MG TAB PO SCH ×3 (08:51→21:45)
[2017-04-05] MEDS: SODIUM CHLORIDE 0.9% FLUSH 10 ML FLUSH IV FLUSH SCH ×2 (08:52→21:46)
[2017-04-05] MEDS: LISINOPRIL 10 MG TAB PO SCH ×2 (08:52→09:00)
[2017-04-05] MEDS: HALOPERIDOL LACTATE 5 MG/ML AMP IV PUSH SCH ×3 (08:52→21:00)
[2017-04-05] MEDS: DOCUSATE SODIUM 50 MG/SENNA 8.6 MG TAB PO SCH ×2 (08:52→21:45)
--- NOTE | 2017-04-05 10:16 | HHI.PR ---
Subjective Remarks resting comfortably with no distress. denies pain. Objective Vitals Vital Signs Date Time Temp Pulse Resp B/P Pulse Ox O2 Delivery O2 Flow Rate FiO2 04/05/17 08:00 98.2 88 18 143/85 98 04/05/17 04:00 98.6 85 16 143/72 97 04/05/17 04:00 Room Air 04/05/17 00:00 Room Air 04/04/17 20:00 Room Air 04/04/17 20:00 99.4 91 18 112/77 97 04/04/17 16:00 99.7 105 18 147/98 97 04/04/17 12:00 99.0 100 20 133/61 96 I/O 04/04/17 04/04/17 04/04/17 04/05/17 04/05/17 04/05/17 07:00 15:00 23:00 07:00 15:00 23:00 Intake Total 480 ml 840 ml 640 ml 240 ml Balance 480 ml 840 ml 640 ml 240 ml Intake Oral 480 ml 840 ml 640 ml 240 ml # Voids 3 3 4 2 # Bowel Movements 0 3 1 0 Imaging Last Impressions Abdomen X-Ray 03/29/17 0000 Signed Impressions: Service Date/Time: Wednesday, March 29, 2017 09:42 - CONCLUSION: 1. Nondistended air-filled loops of small bowel in the left upper quadrant may reflect developing mild adynamic ileus. 2. Large amount of stool in the rectum. Raheem Chandler MD Chest X-Ray 03/28/17 0000 Signed Impressions: Service Date/Time: Tuesday, March 28, 2017 13:26 - CONCLUSION: No acute cardiopulmonary abnormality is identified. Rob Crawford MD Objective Remarks GENERAL: This is a well-nourished, well-developed patient, in no apparent distress. CARDIOVASCULAR: Regular rate and regular rhythm without murmurs, gallops, or rubs. RESPIRATORY: Clear to auscultation. Breath sounds equal bilaterally. No wheezes , rales, or rhonchi. GASTROINTESTINAL: Abdomen soft, non-tender, nondistended. Normal, active bowel sounds MUSCULOSKELETAL: Extremities without clubbing, cyanosis, or edema. NEURO: Awake and alert. Procedures none Medications and IVs Current Medications IV Flush (NS Flush) 2 ml UNSCH PRN IV FLUSH FLUSH AFTER USING IV ACCESS; Start 03/28/17 at 12:45; Stop 03/28/17 at 20:18; Status DC Haloperidol Lactate 5 mg 5 mg ONCE ONCE IM Last administered on 03/28/17 12:54 ; Start 03/28/17 at 12:45; Stop 03/28/17 at 12:47; Status DC Sodium Chloride 1,000 ml @ 999 mls/hr BOLUS ONCE IV Last administered on 14:52; Start 03/28/17 at 14:30; Stop 03/28/17 at 15:30; Status DC Ceftriaxone Sodium 1000 mg/ Sodium Chloride 100 ml @ 200 mls/hr ONCE ONCE IV Last administered on 03/28/17 15:31; Start 03/28/17 at 15:00; Stop 03/28/17 at 15: 29; Status DC Potassium Chloride/Dextrose/ Sod Cl (D5-1/2 NS + KCl 20 Meq Inj) 1,000 ml @ 100 mls/hr Q10H IV Last administered on 03/30/17 10:18; Start 03/28/17 at 18:18 ; Stop 03/30/17 at 12:37; Status DC Sodium Chloride (NS Flush) 2 ml UNSCH PRN IV FLUSH FLUSH AFTER USING IV ACCESS ; Start 03/28/17 at 18:30 Sodium Chloride (NS Flush) 2 ml BID IV FLUSH Last administered on 04/02/17 09: 35; Start 03/28/17 at 21:00 Ondansetron HCl (Zofran Inj) 4 mg Q6H PRN IVP NAUSEA OR VOMITING Last administered on 03/29/17 08:55; Start 03/28/17 at 18:30 Naloxone HCl (Narcan Inj) 0.4 mg UNSCH PRN IV SEE LABEL COMMENTS; Start at 18:30 Senna/Docusate Sodium (Rose Mary-Colace) 1 tab BID PO Last administered on 04/04/17 10:21; Start 03/28/17 at 21:00 Magnesium Hydroxide (Milk Of Magnesia Liq) 30 ml Q12H PRN PO MILD - MODERATE CONSTIPATION; Start 03/28/17 at 18:30 Sennosides (Senokot) 17.2 mg Q12H PRN PO MODERATE - SEVERE CONSTIPATION; Start 03/28/17 at 18:30 Bisacodyl (Dulcolax Supp) 10 mg DAILY PRN RECTAL SEVERE CONSITIPATION; Start at 18:30 Lactulose 30 ml 30 ml DAILY PRN PO SEVERE CONSITIPATION; Start 03/28/17 at 18:30 Ceftriaxone Sodium/Sodium Chloride (Rocephin Inj/NS Inj) 100 ml @ 200 mls/hr Q24H IV Last administered on 03/31/17 16:08; Start 03/29/17 at 16:00; Stop at 09:49; Status DC Apixaban (Eliquis) 5 mg DAILY PO Last administered on 04/05/17 08:51; Start 03/29/17 at 09:00 Escitalopram Oxalate (Lexapro) 5 mg DAILY PO Last administered on 03/29/17 08: 56; Start 03/29/17 at 09:00; Stop 03/29/17 at 09:57; Status DC Levothyroxine Sodium (Synthroid) 75 mcg DAILY@0600 PO Last administered on 05:36; Start 03/29/17 at 06:00 Lisinopril (Prinivil) 20 mg DAILY PO ; Start 03/29/17 at 09:00; Stop 03/29/17 at 10:31; Status DC Memantine (Namenda) 5 mg DAILY PO Last administered on 04/01/17 09:52; Start at 09:00; Stop 04/02/17 at 18:31; Status DC Metoprolol Tartrate (Lopressor) 25 mg Q12HR PO Last administered on 03/29/17 08 :55; Start 03/28/17 at 21:00; Stop 03/29/17 at 15:46; Status DC Quetiapine Fumarate (SEROquel) 25 mg BID PO Last administered on 04/01/17 09:51 ; Start 03/28/17 at 21:00; Stop 04/02/17 at 18:31; Status DC Miscellaneous (Pill Splitter) 1 ea UNSCH PRN OTHER SEE LABEL COMMENTS; Start at 20:30 Pantoprazole Sodium (Protonix) 40 mg DAILY PO Last administered on 04/05/17 08: 51; Start 03/29/17 at 09:00 Lisinopril (Prinivil) 10 mg DAILY PO ; Start 03/30/17 at 09:00; Stop 03/30/17 at 09:00; Status DC Enalaprilat (Vasotec Inj) 1.25 mg ONCE ONCE IV PUSH Last administered on 11:57; Start 03/29/17 at 11:30; Stop 03/29/17 at 11:32; Status DC Lisinopril (Prinivil) 10 mg ONCE ONCE PO Last administered on 03/29/17 16:09; Start 03/29/17 at 15:30; Stop 03/29/17 at 15:35; Status DC Clonidine (Catapres) 0.1 mg Q6H PRN PO SBP> OR = 180, DBP> OR = 100; Start 03/29 at 15:30 Metronidazole (Flagyl) 500 mg Q8H PO Last administered on 04/05/17 08:51; Start 03/29/17 at 16:00; Stop 04/12/17 at 15:59 Lisinopril (Prinivil) 20 mg DAILY PO Last administered on 04/05/17 08:52; Start 03/30/17 at 09:00 Metoprolol Tartrate (Lopressor) 25 mg ONCE ONCE PO Last administered on 16:09; Start 03/29/17 at 15:45; Stop 03/29/17 at 15:48; Status DC Metoprolol Tartrate (Lopressor) 50 mg Q12HR PO Last administered on 04/05/17 08 :51; Start 03/29/17 at 21:00 Diltiazem HCl 15 mg 15 mg ONCE ONCE IVP Last administered on 03/29/17 17:05; Start 03/29/17 at 16:45; Stop 03/29/17 at 16:47; Status DC Diltiazem HCl/ Sodium Chloride (Cardizem Inj/NS Inj) 125 ml @ 1 mls/hr TITRATE IV Last administered on 03/29/17 17:34; Start 03/29/17 at 16:45; Stop 04/01/17 at 09:49; Status DC Acetaminophen (Tylenol) 650 mg Q4H PRN PO pain 1-3 Last administered on 20:10; Start 04/01/17 at 02:00 Nitrofurantoin Macrocrystals (Macrobid) 100 mg BIDPC PO Last administered on 08:51; Start 04/01/17 at 10:00; Stop 04/08/17 at 09:00 Haloperidol Lactate (Haldol Inj) 2 mg ONCE ONCE IM Last administered on 16:55; Start 04/02/17 at 16:45; Stop 04/02/17 at 16:50; Status DC Diphenhydramine HCl (Benadryl Inj) 25 mg ONCE ONCE IM Last administered on 04/02 16:55; Start 04/02/17 at 16:45; Stop 04/02/17 at 16:50; Status DC Haloperidol Lactate (Haldol Inj) 1 mg DAILY@09,15,21 IV PUSH Last administered on 04/03/17 08:23; Start 04/02/17 at 21:00 Haloperidol Lactate (Haldol Inj) 2 mg Q6H PRN IM Severe agitation Last administered on 04/04/17 21:04; Start 04/02/17 at 18:30 Diphenhydramine HCl (Benadryl Inj) 25 mg Q6H PRN IV PUSH EXTRA PYRAMIDAL SYMPTOMS; Start 04/02/17 at 18:30 A/P Assessment and Plan Inability to Care for Self, Difficulty w/ADLs: suspect secondary to advanced dementia. Needs placement. -case management consulted to assist with placement -PT consulted C- diff colitis- improving- continue Flagyl- UTI: UC with enterococcus- continue macrobid. Nausea/Vomiting & Loose Stools: with recent antibiotics use, also recently started on Lexapro; likely contributing- now has resolved. -discontinued Lexapro -continue supportive treatment with IVF, antiemetics prn Dementia w/Agitation: -psych follow-up appreciated and started on IM Haldol- Seroquel was discontinued. Atrial Fibrillation: chronic, -continue patient's Eliquis and Metoprolol Hypertension: chronic - continue lisinopril and metoprolol Hypothyroidism: chronic, stable -continue patient's synthroid DVT Prophylaxis: on Eliquis Discharge Planning dc to SNF when arrangements made. see med list. f/u ; pcp. Iron Sheffield MD Apr 05, 2017 10:16
[2017-04-05 12:00] VITALS: BP 152/84; PULSE 80; RESP 16; TEMP 97.8; O2SAT 98
[2017-04-05 16:00] VITALS: BP 155/71; PULSE 95; RESP 18; TEMP 97.5; O2SAT 96
[2017-04-05 20:00] VITALS: BP 142/66; PULSE 115; RESP 18; TEMP 98.8; O2SAT 93
[2017-04-05] MEDS ORDERED: HALOPERIDOL 1 MG TAB PO ONE (22:30)
[2017-04-06] VITALS: BP 128/76; PULSE 104; RESP 18; TEMP 99; O2SAT 94
[2017-04-06] MEDS: metroNIDAZOLE 500 MG TAB PO SCH ×2 (00:06→08:06)
[2017-04-06 04:00] VITALS: BP 124/58; PULSE 95; RESP 18; TEMP 98; O2SAT 97
[2017-04-06] MEDS: LEVOTHYROXINE SODIUM 75 MCG TAB PO SCH (05:09)
[2017-04-06 08:00] VITALS: BP 122/59; PULSE 94; RESP 18; TEMP 98.1; O2SAT 96
[2017-04-06] MEDS: NITROFURANTOIN MONOHYD MACROCR 100 MG CAP PO SCH (08:06)
[2017-04-06] MEDS: LISINOPRIL 10 MG TAB PO SCH (08:06)
[2017-04-06] MEDS: APIXABAN 5 MG TABLET PO SCH (08:06)
[2017-04-06] MEDS: METOPROLOL TARTRATE 50 MG TAB PO SCH (08:06)
[2017-04-06] MEDS: DOCUSATE SODIUM 50 MG/SENNA 8.6 MG TAB PO SCH (08:06)
[2017-04-06] MEDS: PANTOPRAZOLE SOD 40 MG DELAYED RELEASE TAB PO SCH (08:06)
[2017-04-06] MEDS: SODIUM CHLORIDE 0.9% FLUSH 10 ML FLUSH IV FLUSH SCH (08:13)
[2017-04-06] MEDS: HALOPERIDOL LACTATE 5 MG/ML AMP IV PUSH SCH ×2 (08:13→15:00)
--- NOTE | 2017-04-06 08:37 | HHI.PR ---
Subjective Remarks in no acute distress. denies pain. no fever. no chest pain or sob. Objective Vitals Vital Signs Date Time Temp Pulse Resp B/P Pulse Ox O2 Delivery O2 Flow Rate FiO2 04/06/17 04:00 98.0 95 18 124/58 97 04/06/17 00:00 99.0 104 18 128/76 94 04/05/17 20:00 98.8 115 18 142/66 93 04/05/17 19:00 Room Air 04/05/17 18:00 Room Air 04/05/17 16:00 97.5 95 18 155/71 96 04/05/17 12:00 Room Air 04/05/17 12:00 97.8 80 16 152/84 98 I/O 04/05/17 04/05/17 04/05/17 04/06/17 04/06/17 04/06/17 07:00 15:00 23:00 07:00 15:00 23:00 Intake Total 240 ml 240 ml 360 ml 240 ml Balance 240 ml 240 ml 360 ml 240 ml Intake Oral 240 ml 240 ml 360 ml 240 ml # Voids 2 2 2 2 # Bowel Movements 0 0 0 0 Imaging Last Impressions Abdomen X-Ray 03/29/17 0000 Signed Impressions: Service Date/Time: Wednesday, March 29, 2017 09:42 - CONCLUSION: 1. Nondistended air-filled loops of small bowel in the left upper quadrant may reflect developing mild adynamic ileus. 2. Large amount of stool in the rectum. Raheem Chandler MD Chest X-Ray 03/28/17 0000 Signed Impressions: Service Date/Time: Tuesday, March 28, 2017 13:26 - CONCLUSION: No acute cardiopulmonary abnormality is identified. Rob Crawford MD Objective Remarks GENERAL: This is a well-nourished, well-developed patient, in no apparent distress. CARDIOVASCULAR: Regular rate and regular rhythm without murmurs, gallops, or rubs. RESPIRATORY: Clear to auscultation. Breath sounds equal bilaterally. No wheezes , rales, or rhonchi. GASTROINTESTINAL: Abdomen soft, non-tender, nondistended. Normal, active bowel sounds MUSCULOSKELETAL: Extremities without clubbing, cyanosis, or edema. NEURO: Awake and alert. Procedures none Medications and IVs Current Medications IV Flush (NS Flush) 2 ml UNSCH PRN IV FLUSH FLUSH AFTER USING IV ACCESS; Start 03/28/17 at 12:45; Stop 03/28/17 at 20:18; Status DC Haloperidol Lactate 5 mg 5 mg ONCE ONCE IM Last administered on 03/28/17 12:54 ; Start 03/28/17 at 12:45; Stop 03/28/17 at 12:47; Status DC Sodium Chloride 1,000 ml @ 999 mls/hr BOLUS ONCE IV Last administered on 14:52; Start 03/28/17 at 14:30; Stop 03/28/17 at 15:30; Status DC Ceftriaxone Sodium 1000 mg/ Sodium Chloride 100 ml @ 200 mls/hr ONCE ONCE IV Last administered on 03/28/17 15:31; Start 03/28/17 at 15:00; Stop 03/28/17 at 15: 29; Status DC Potassium Chloride/Dextrose/ Sod Cl (D5-1/2 NS + KCl 20 Meq Inj) 1,000 ml @ 100 mls/hr Q10H IV Last administered on 03/30/17 10:18; Start 03/28/17 at 18:18 ; Stop 03/30/17 at 12:37; Status DC Sodium Chloride (NS Flush) 2 ml UNSCH PRN IV FLUSH FLUSH AFTER USING IV ACCESS ; Start 03/28/17 at 18:30 Sodium Chloride (NS Flush) 2 ml BID IV FLUSH Last administered on 04/05/17 21: 46; Start 03/28/17 at 21:00 Ondansetron HCl (Zofran Inj) 4 mg Q6H PRN IVP NAUSEA OR VOMITING Last administered on 03/29/17 08:55; Start 03/28/17 at 18:30 Naloxone HCl (Narcan Inj) 0.4 mg UNSCH PRN IV SEE LABEL COMMENTS; Start at 18:30 Senna/Docusate Sodium (Rose Mary-Colace) 1 tab BID PO Last administered on 08:06; Start 03/28/17 at 21:00 Magnesium Hydroxide (Milk Of Magnesia Liq) 30 ml Q12H PRN PO MILD - MODERATE CONSTIPATION; Start 03/28/17 at 18:30 Sennosides (Senokot) 17.2 mg Q12H PRN PO MODERATE - SEVERE CONSTIPATION; Start 03/28/17 at 18:30 Bisacodyl (Dulcolax Supp) 10 mg DAILY PRN RECTAL SEVERE CONSITIPATION; Start at 18:30 Lactulose 30 ml 30 ml DAILY PRN PO SEVERE CONSITIPATION; Start 03/28/17 at 18:30 Ceftriaxone Sodium/Sodium Chloride (Rocephin Inj/NS Inj) 100 ml @ 200 mls/hr Q24H IV Last administered on 03/31/17 16:08; Start 03/29/17 at 16:00; Stop at 09:49; Status DC Apixaban (Eliquis) 5 mg DAILY PO Last administered on 04/06/17 08:06; Start at 09:00 Escitalopram Oxalate (Lexapro) 5 mg DAILY PO Last administered on 03/29/17 08: 56; Start 03/29/17 at 09:00; Stop 03/29/17 at 09:57; Status DC Levothyroxine Sodium (Synthroid) 75 mcg DAILY@0600 PO Last administered on 04/06 05:09; Start 03/29/17 at 06:00 Lisinopril (Prinivil) 20 mg DAILY PO ; Start 03/29/17 at 09:00; Stop 03/29/17 at 10:31; Status DC Memantine (Namenda) 5 mg DAILY PO Last administered on 04/01/17 09:52; Start at 09:00; Stop 04/02/17 at 18:31; Status DC Metoprolol Tartrate (Lopressor) 25 mg Q12HR PO Last administered on 03/29/17 08 :55; Start 03/28/17 at 21:00; Stop 03/29/17 at 15:46; Status DC Quetiapine Fumarate (SEROquel) 25 mg BID PO Last administered on 04/01/17 09:51 ; Start 03/28/17 at 21:00; Stop 04/02/17 at 18:31; Status DC Miscellaneous (Pill Splitter) 1 ea UNSCH PRN OTHER SEE LABEL COMMENTS; Start at 20:30 Pantoprazole Sodium (Protonix) 40 mg DAILY PO Last administered on 04/06/17 08 :06; Start 03/29/17 at 09:00 Lisinopril (Prinivil) 10 mg DAILY PO ; Start 03/30/17 at 09:00; Stop 03/30/17 at 09:00; Status DC Enalaprilat (Vasotec Inj) 1.25 mg ONCE ONCE IV PUSH Last administered on 11:57; Start 03/29/17 at 11:30; Stop 03/29/17 at 11:32; Status DC Lisinopril (Prinivil) 10 mg ONCE ONCE PO Last administered on 03/29/17 16:09; Start 03/29/17 at 15:30; Stop 03/29/17 at 15:35; Status DC Clonidine (Catapres) 0.1 mg Q6H PRN PO SBP> OR = 180, DBP> OR = 100; Start 03/29 at 15:30 Metronidazole (Flagyl) 500 mg Q8H PO Last administered on 04/06/17 08:06; Start 03/29/17 at 16:00; Stop 04/12/17 at 15:59 Lisinopril (Prinivil) 20 mg DAILY PO Last administered on 04/06/17 08:06; Start 03/30/17 at 09:00 Metoprolol Tartrate (Lopressor) 25 mg ONCE ONCE PO Last administered on 16:09; Start 03/29/17 at 15:45; Stop 03/29/17 at 15:48; Status DC Metoprolol Tartrate (Lopressor) 50 mg Q12HR PO Last administered on 04/06/17 08:06; Start 03/29/17 at 21:00 Diltiazem HCl 15 mg 15 mg ONCE ONCE IVP Last administered on 03/29/17 17:05; Start 03/29/17 at 16:45; Stop 03/29/17 at 16:47; Status DC Diltiazem HCl/ Sodium Chloride (Cardizem Inj/NS Inj) 125 ml @ 1 mls/hr TITRATE IV Last administered on 03/29/17 17:34; Start 03/29/17 at 16:45; Stop 04/01/17 at 09:49; Status DC Acetaminophen (Tylenol) 650 mg Q4H PRN PO pain 1-3 Last administered on 20:10; Start 04/01/17 at 02:00 Nitrofurantoin Macrocrystals (Macrobid) 100 mg BIDPC PO Last administered on 08:06; Start 04/01/17 at 10:00; Stop 04/08/17 at 09:00 Haloperidol Lactate (Haldol Inj) 2 mg ONCE ONCE IM Last administered on 16:55; Start 04/02/17 at 16:45; Stop 04/02/17 at 16:50; Status DC Diphenhydramine HCl (Benadryl Inj) 25 mg ONCE ONCE IM Last administered on 04/02 16:55; Start 04/02/17 at 16:45; Stop 04/02/17 at 16:50; Status DC Haloperidol Lactate (Haldol Inj) 1 mg DAILY@09,15,21 IV PUSH Last administered on 04/03/17 08:23; Start 04/02/17 at 21:00 Haloperidol Lactate (Haldol Inj) 2 mg Q6H PRN IM Severe agitation Last administered on 04/04/17 21:04; Start 04/02/17 at 18:30 Diphenhydramine HCl (Benadryl Inj) 25 mg Q6H PRN IV PUSH EXTRA PYRAMIDAL SYMPTOMS; Start 04/02/17 at 18:30 Haloperidol (Haldol) 1 mg ONCE ONCE PO Last administered on 04/05/17 23:05; Start 04/05/17 at 22:30; Stop 04/05/17 at 22:31; Status DC A/P Assessment and Plan Inability to Care for Self, Difficulty w/ADLs: suspect secondary to advanced dementia. Needs placement. -case management consulted to assist with placement -PT consulted C- diff colitis- improving- continue Flagyl- UTI: UC with enterococcus- continue macrobid. Nausea/Vomiting & Loose Stools: with recent antibiotics use, also recently started on Lexapro; likely contributing- now has resolved. -discontinued Lexapro -continue supportive treatment with IVF, antiemetics prn Dementia w/Agitation: -psych follow-up appreciated and started on IM Haldol- Seroquel was discontinued. Atrial Fibrillation: chronic, -continue patient's Eliquis and Metoprolol Hypertension: chronic - continue lisinopril and metoprolol Hypothyroidism: chronic, stable -continue patient's synthroid DVT Prophylaxis: on Eliquis Discharge Planning dc to SNF when arrangements made. see med list. f/u ; pcp. d/w case management today. Iron Sheffield MD Apr 06, 2017 08:37
[2017-04-06 12:00] VITALS: BP 128/60; PULSE 101; RESP 16; TEMP 99.2; O2SAT 99
[2017-04-06 16:00] VITALS: BP 102/57; PULSE 105; RESP 18; TEMP 98.7; O2SAT 97
== END 2017-04-06 17:46 | disposition home or self-care (01) | DRG 690 ==
LOC: NEPE 12:23 → NEDA 18:24 → NEPGCP 20:12 → OBSVTOIN 03-29 16:39 → HCIS 03-29 17:24 → N04A 04-01 20:50 → N04B 04-05 20:16
PROVIDERS: ADMIT Internal Medicine; ATTEND Internal Medicine
DX: N39.0 Urinary tract infection, site not specified (principal); N17.9 Acute kidney failure, unspecified; A04.7 Enterocolitis due to Clostridium difficile; I48.2 Chronic atrial fibrillation; Z79.02 Long term (current) use of antithrombotics/antiplatelets; E86.0 Dehydration; G30.9 Alzheimer's disease, unspecified; F02.81 Dementia in other diseases classified elsewhere, unspecified severity, with behavioral disturbance; B95.2 Enterococcus as the cause of diseases classified elsewhere; R62.7 Adult failure to thrive; E03.9 Hypothyroidism, unspecified; I10 Essential (primary) hypertension; Z87.440 Personal history of urinary (tract) infections; E78.5 Hyperlipidemia, unspecified; G89.29 Other chronic pain; M25.561 Pain in right knee; H40.9 Unspecified glaucoma; Z87.891 Personal history of nicotine dependence
CPT/HCPCS: 71010; 74000; 76937; 80048; 80053; 81001; 82550; 83605; 85025; 85610; 85730; 87077; 87086; 87186; 87493; 87506; 96365; 96366; 96372; G0378; G8987-GP; G8988-GP; J0696; J1200; J1630; J2405; J3480; J7030; P9612